=== PATIENT | male | born 1970 | race Two or more races ===

== ENCOUNTER 2017-12-04 20:12 | Inpatient (IN) | payer MEDICAID ==
[2017-12-04] MEDS ORDERED: Sodium Chloride 0.9% 1,000 ML IV ONE (20:43)
[2017-12-04] MEDS ORDERED: Pantoprazole 40 MG Vial IVPUSH ONE (20:43)
[2017-12-04] MEDS ORDERED: Sodium Chloride 0.9% 2.5 ML Syringe FLUSH PRN (20:43)
[2017-12-04] MEDS ORDERED: Ondansetron 4 MG/2 ML SDV IVPUSH ONE (20:43)
[2017-12-04] MEDS ORDERED: Sodium Chloride 0.9% 10 ML Syringe FLUSH PRN (20:43)
[2017-12-04] MEDS ORDERED: LORazepam 2 MG/ML SDV IVPUSH ONE (20:44)
[2017-12-04] MEDS ORDERED: Iopamidol 755 MG/ML 200 ML Multipack Bottle IVPUSH STA (20:50)
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
[2017-12-04 21:20] LABS: CHLORIDE,CL 97 mmol/L (98-110); SODIUM,NA 131 mmol/L (136-146)
[2017-12-04] MEDS ORDERED: Magnesium Sulfate/Water 2 GM in Premix Bag 1 BAG IV ONE (22:24)
[2017-12-04] MEDS ORDERED: MVI, Adult with Vitamin K 10 ML, Thiamine 100 MG, Folic Acid 1 MG in Sodium Chloride 0.... IV ONE ×4 (22:34)
[2017-12-04] MEDS ORDERED: oxyCODONE 5 MG Tab PO PRN (23:19)
[2017-12-04] MEDS ORDERED: Morphine 2 MG/ML Syringe IVPUSH PRN (23:19)
[2017-12-04] MEDS ORDERED: Furosemide 40 MG/4 ML VIAL IVPUSH ONE (23:19)
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
[2017-12-04] MEDS: Heparin Sodium 5,000 Units/ML Vial SUBCUT SCH (23:58)
[2017-12-05] MEDS: LORazepam 2 MG/ML SDV IVPUSH PRN ×2 (01:54→11:25)
[2017-12-05] MEDS: Ondansetron 4 MG/2 ML SDV IVPUSH PRN (01:59)
[2017-12-05 06:05] LABS: CHLORIDE,CL 103 mmol/L (98-110); SODIUM,NA 139 mmol/L (136-146)
[2017-12-05] MEDS: Pantoprazole 40 MG Vial IV SCH ×2 (08:04→21:38)
[2017-12-05] MEDS: Citalopram 20 MG Tab PO SCH (08:04)
[2017-12-05] MEDS: Folic Acid 1 MG Tab PO SCH (08:04)
[2017-12-05] MEDS ORDERED: Magnesium Sulfate/Water 4 GM in Premix Bag 1 BAG IV ONE (11:14)
[2017-12-05] MEDS ORDERED: Furosemide 40 MG/4 ML VIAL IVPUSH ONE (11:27)
[2017-12-05] MEDS: Heparin Sodium 5,000 Units/ML Vial SUBCUT SCH ×2 (11:34→22:42)
--- NOTE | 2017-12-05 12:18 | PCM.PN ---
- General Info Date of Service: 12/05/17 Subjective Update: patient doing better than upon admission. His breathing has gotten better secondary to the IV Lasix dosage which did reduce some of his anasarca fluid allowing him to breathe better. He still is having general anasarca. Patient no longer is having any nausea or vomiting. He is however appeared to be quite anxious with anxiety, headaches, tremor complaints. Likely this is the beginning of his alcoholic detox as his blood alcohol level should be coming down by now. Patient states that he did not sleep well due to his anxiety. His last CIWA score was a 9. Functional Status: Reports: Pain Controlled - Review of Systems General: Reports: Weakness, Chills HEENT: Reports: No Symptoms Pulmonary: Reports: Shortness of Breath Cardiovascular: Reports: No Symptoms Neurological: Reports: Headache Psychiatric: Reports: Anxiety, Agitation - Patient Data Vitals - Most Recent: Last Vital Signs Temp 36.5 C 12/05/17 07:00 Pulse 123 H 12/05/17 07:00 Resp 20 12/05/17 07:00 BP 138/101 H 12/05/17 07:00 Pulse Ox 95 12/05/17 07:00 Weight - Most Recent: 109.4 kg I&O - Last 24 Hours: Intake & Output 12/04/17 12/05/17 12/05/17 22:59 06:59 14:59 Intake Total 1150 Output Total 1950 Balance -800 Lab Results Last 24 Hours: Laboratory Results - last 24 hr 12/05/17 12/05/17 Range/Units 05:25 05:25 WBC 7.86 (4.0-11.0) K/uL RBC 3.71 L (4.50-5.90) M/uL Hgb 11.3 L (13.0-17.0) g/dL Hct 34.4 L (38.0-50.0) % MCV 92.7 (80.0-98.0) fL MCH 30.5 (27.0-32.0) pg MCHC 32.8 (31.0-37.0) g/dL RDW Std Deviation 53.5 (28.0-62.0) fl RDW Coeff of Pancho 16 H (11.0-15.0) % Plt Count 347 (150-400) K/uL MPV 8.60 (7.40-12.00) fL Neut % (Auto) 77.7 (48.0-80.0) % Lymph % (Auto) 13.9 L (16.0-40.0) % Sibley % (Auto) 7.8 (0.0-15.0) % Eos % (Auto) 0.3 (0.0-7.0) % Baso % (Auto) 0.3 (0.0-1.5) % Neut # (Auto) 6.1 H (1.4-5.7) K/uL Lymph # (Auto) 1.1 (0.6-2.4) K/uL Sibley # (Auto) 0.6 (0.0-0.8) K/uL Eos # (Auto) 0.0 (0.0-0.7) K/uL Baso # (Auto) 0.0 (0.0-0.1) K/uL Nucleated RBC % 0.0 /100WBC Nucleated RBCs # 0 K/uL Sodium 139 (136-146) mmol/L Potassium 4.4 (3.5-5.1) mmol/L Chloride 103 (98-110) mmol/L Carbon Dioxide 27 (21-31) mmol/L BUN 3 L (6.0-23.0) mg/dL Creatinine 0.8 (0.6-1.5) mg/dL Est Cr Clr Drug Dosing 116.61 mL/min Estimated GFR (MDRD) > 60.0 ml/min Glucose 106 (60-110) mg/dL Calcium 7.7 L (8.8-10.8) mg/dL Phosphorus 4.3 (2.4-4.7) mg/dL Magnesium 1.3 L (1.5-2.3) mEq/L Total Bilirubin 2.5 H (0.1-1.5) mg/dL AST 205 H (5-40) IU/L ALT 66 H (8-54) IU/L Alkaline Phosphatase 189 H (40-150) Total Protein 6.8 (6.0-8.0) g/dL Albumin 2.8 L (3.5-5.0) g/dL Globulin 4.0 H (2.0-3.5) g/dL Albumin/Globulin Ratio 0.7 L (1.3-2.8) Med Orders - Current: Current Medications Citalopram Hydrobromide (Celexa) 20 mg PO DAILY [facility] Last Admin: 12/05/17 08:04 Dose: 20 mg Folic Acid (Folic Acid) 1 mg PO DAILY [facility] Last Admin: 12/05/17 08:04 Dose: 1 mg Heparin Sodium (Porcine) (Heparin Sodium) 5,000 units SUBCUT Q12H [facility] Last Admin: 12/05/17 11:34 Dose: 5,000 units Magnesium Sulfate 4 gm/ Premix 100 mls @ 25 mls/hr IV ONETIME ONE Stop: 12/05/17 15:13 Last Admin: 12/05/17 11:28 Dose: 25 mls/hr Lorazepam (Ativan) 1 mg IVPUSH Q4H PRN PRN Reason: Anxiety Last Admin: 12/05/17 11:25 Dose: 1 mg Lorazepam (Ativan) 0 mg IV ASDIRECTED PRANAY PRN Reason: Protocol Morphine Sulfate (Morphine) 2 mg IVPUSH Q2H PRN PRN Reason: Pain (severe 7-10) Stop: 12/05/17 23:24 Ondansetron HCl (Zofran Odt) 4 mg PO Q4H PRN PRN Reason: nausea, able to take PO Ondansetron HCl (Zofran) 4 mg IVPUSH Q4H PRN PRN Reason: Nausea Last Admin: 12/05/17 01:59 Dose: 4 mg Oxycodone HCl (Oxycodone) 5 mg PO Q4H PRN PRN Reason: Pain (moderate 4-6) Pantoprazole Sodium (Protonix Iv) 80 mg IV Q12HR [facility] Last Admin: 12/05/17 08:04 Dose: 80 mg Sodium Chloride (Saline Flush) 10 ml FLUSH ASDIRECTED PRN PRN Reason: Keep Vein Open Last Admin: 12/04/17 20:54 Dose: 10 ml Sodium Chloride (Saline Flush) 2.5 ml FLUSH ASDIRECTED PRN PRN Reason: Keep Vein Open Last Admin: 12/04/17 20:54 Dose: 2.5 ml Temazepam (Restoril) 15 mg PO BEDTIME PRN PRN Reason: Sleep Thiamine HCl (Vitamin B-1) 100 mg PO BEDTIME [facility] Discontinued Medications Furosemide (Lasix) 40 mg IVPUSH NOW ONE Stop: 12/04/17 23:20 Last Admin: 12/05/17 00:01 Dose: 40 mg Furosemide (Lasix) 40 mg IVPUSH NOW ONE Stop: 12/05/17 11:28 Last Admin: 12/05/17 11:42 Dose: 40 mg Sodium Chloride (Normal Saline) 1,000 mls @ 999 mls/hr IV STAT ONE Stop: 12/04/17 21:43 Last Admin: 12/04/17 20:53 Dose: 999 mls/hr Magnesium Sulfate 2 gm/ Premix 50 mls @ 50 mls/hr IV ONETIME ONE Stop: 12/04/17 23:23 Last Admin: 12/04/17 22:27 Dose: 50 mls/hr Multivitamins/Minerals 10 ml/Thiamine HCl 100 mg/ Folic Acid 1 mg/ Sodium Chloride 1,011.2 mls @ 150 mls/hr IV ONETIME ONE Stop: 12/05/17 05:18 Last Admin: 12/04/17 22:59 Dose: 150 mls/hr Iopamidol (Isovue Multipack-370 (76%)) 100 ml IVPUSH ONETIME STA Stop: 12/04/17 20:51 Last Admin: 12/04/17 20:51 Dose: 100 ml Lorazepam (Ativan) 1 mg IVPUSH ONETIME ONE Stop: 12/04/17 20:45 Last Admin: 12/04/17 20:53 Dose: 1 mg Ondansetron HCl (Zofran) 4 mg IVPUSH ONETIME ONE Stop: 12/04/17 20:44 Last Admin: 12/04/17 20:53 Dose: 4 mg Pantoprazole Sodium (Protonix Iv) 80 mg IVPUSH .BOLUS ONE Stop: 12/04/17 20:44 Last Admin: 12/04/17 20:53 Dose: 80 mg - Exam General: Alert, Oriented, Cooperative HEENT: Pupils Equal Neck: Supple Lungs: Clear to Auscultation, Normal Respiratory Effort Cardiovascular: Regular Rhythm, Tachycardia GI/Abdominal Exam: Soft, Hepatomegaly, Other (generalized anasarca) Extremities: Pedal Edema, Other (bilateral pedal edema up until below the knee.) Skin: Warm Neurological: No New Focal Deficit Psy/Mental Status: Alert, Anxious, Agitated - Problem List Review Problem List Initiated/Reviewed/Updated: Yes - My Orders Last 24 Hours: My Active Orders 12/05/17 11:14 Magnesium Sulfate/Water [Magnesium Sulfate 4 GM in Water 100 ML] 4 gm Premix Bag 1 bag IV ONETIME 12/05/17 11:23 Notify Provider [RC] PRN 12/05/17 11:30 LORazepam [Ativan] See Protocol IV ASDIRECTED - Plan Plan:: 47-year-old male admitted anasarca and intractable nausea and vomiting with past medical history of alcohol dependence with acute intoxication and hypertension. #1. Anasarcalikely be generalized fluid that is around the abdomen and body is secondary to the patient's liver dysfunction due to alcohol use disorder. Patient has improved mildly from the standpoint of his anasarca and breathing difficulty secondary to the anasarca due to the one-time dose of IV Lasix. patient is going to require another dose of IV Lasix today of 40 mg. I shall also get in touch with radiology to assess his need for a possible paracentesis. At this point in time the patient is not going to require a GI consultation. #2. patient is exhibiting anxiety, agitation, headaches, asterixis//tremors all likely secondary to alcohol withdrawal. [place] protocol is in place, patient is also on a Ativan protocol with Ativan 1 mg every 4 hours when necessary for anxiety, as well as additional Ativan onboard via Ativan protocol for withdrawal symptoms based upon CIWA scores. #3. Nausea/vomiting stable and controlled with Zofran on board when necessary #4. Shortness of breath/pleural effusion: patient received 1 dose of Lasix yesterday, will receive another dose of Lasix today and a assessment from radiology for possible paracentesis to help with the shortness of breath which has started to improve since his last Lasix dose. #5. Hypomagnesemia- patient has a low magnesium level and will require 4 mg of IV magnesium and recheck to ensure magnesium levels have stabilized. #6. Patient has elevated LFT levels, a normal INR level, and a mildly elevated bilirubin level of 2.5. Patient at this point in time is not at a risk for acute liver failure however he continues to drink and cause damage to his liver she may go into end stage liver disease secondary to alcohol consumption. #7. Mentioned on CT that there was some fat stranding around the C-loop of the duodenum possibly representing duodenitis or related to peptic ulcer disease. Patient is currently afebrile and does not mention any fever or chills. He has no leukocytosis will watch closely hold off on antibiotics at this time. VTE proph: SCD, Heparin Dispo: 1-2 days pending improvement of his anasarca as well as alcohol withdrawal. Patient will likely need a follow-up with her primary care provider while he is here in [place]. Patient states that he will be here for about one month.
--- NOTE | 2017-12-05 13:41 | US ---
EXAMINATION: Right upper quadrant ultrasound HISTORY: Pain COMPARISON: CT dated 12/04/2017 TECHNIQUE: Grayscale and color Doppler images obtained of the right upper quadrant. FINDINGS: The visualized pancreas is normal. The liver is mildly increased in generalized echotexture without a focal hepatic mass. Cholecystectomy. Common bile duct measures 6 mm. The right kidney andrew ures 11.8 cm [id number] without evidence of hydronephrosis. Trace perihepatic fluid. IMPRESSION: 1. Trace perihepatic fluid. 2. Mild fatty infiltration of the liver.
--- NOTE | 2017-12-05 15:08 | CR ---
EXAM DATE: 12/04/17 PATIENT'S AGE: 47 Patient: MONICA ALDRICH Facility: [place], [place] Site . Site : 1970 Study: XRay Chest [id number]/11/2018 9:19:01 PM Ordering Physician: Shantanu Siddiqui Final Report: HISTORY: Chest pain, shortness of breath. TECHNIQUE: One view of the chest. COMPARISON: No prior. FINDINGS: Cardiac size is prominent but exaggerated by the technique. There is no focal lung infiltrate or pulmonary edema. No pneumothorax. No moderate or large pleural effusion. IMPRESSION: 1. No focal lung infiltrate or pulmonary edema. 2. Cardiac size is prominent but exaggerated by technique. Dictated by Ramon Ellison MD @ 12/04/2017 9:29:32 PM Dictated by: Ramon Ellison MD @ 12/04/2017 21:29:38 (Electronic Signature) Report Signed by Proxy. MTDTc
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
[2017-12-05] MEDS: LORazepam 2 MG/ML SDV IV SCH (18:54)
[2017-12-05] MEDS: Thiamine 100 MG Tab PO SCH (21:38)
[2017-12-06] MEDS: LORazepam 2 MG/ML SDV IVPUSH PRN (00:21)
[2017-12-06] MEDS: LORazepam 2 MG/ML SDV IV SCH (03:44)
[2017-12-06 05:40] LABS: CHLORIDE,CL 98 mmol/L (98-110); SODIUM,NA 135 mmol/L (136-146)
[2017-12-06] MEDS: Pantoprazole 40 MG Vial IV SCH ×2 (08:05→20:38)
[2017-12-06] MEDS: Citalopram 20 MG Tab PO SCH (08:18)
[2017-12-06] MEDS: Folic Acid 1 MG Tab PO SCH (08:18)
[2017-12-06] MEDS: Heparin Sodium 5,000 Units/ML Vial SUBCUT SCH ×2 (11:04→23:53)
[2017-12-06] MEDS ORDERED: Furosemide 40 MG/4 ML VIAL IVPUSH ONE (13:59)
--- NOTE | 2017-12-06 14:16 | PCM.PN ---
- General Info Date of Service: 12/06/17 Subjective Update: Patient is improving from the standpoint of his circumflex. Patient has been receiving IV Lasix 40 mg which has helped in terms of reduction of his fluid and improvement of his breathing. Patient is starting to detox more heavily now with ciwa scores ranging up to 16. The likelihood is that his withdrawals we'll get worse by tomorrow. Patient was receiving a echocardiogram 1000 the room assessing him. She is denying any nausea or vomiting or any other discomfort at the moment. Functional Status: Reports: Pain Controlled, Tolerating Diet - Review of Systems General: Reports: Fatigue HEENT: Reports: No Symptoms Pulmonary: Reports: No Symptoms, Shortness of Breath Cardiovascular: Reports: No Symptoms Psychiatric: Reports: Anxiety - Patient Data Vitals - Most Recent: Last Vital Signs Temp 36.4 C 12/06/17 12:00 Pulse 117 H 12/06/17 12:00 Resp 20 12/06/17 12:00 BP 125/91 H 12/06/17 12:00 Pulse Ox 95 12/06/17 12:00 Weight - Most Recent: 107.4 kg Med Orders - Current: Current Medications Citalopram Hydrobromide (Celexa) 20 mg PO DAILY [facility] Last Admin: 12/06/17 08:18 Dose: 20 mg Folic Acid (Folic Acid) 1 mg PO DAILY [facility] Last Admin: 12/06/17 08:18 Dose: 1 mg Heparin Sodium (Porcine) (Heparin Sodium) 5,000 units SUBCUT Q12H [facility] Last Admin: 12/06/17 11:04 Dose: 5,000 units Lorazepam (Ativan) 1 mg IVPUSH Q4H PRN PRN Reason: Anxiety Last Admin: 12/06/17 00:21 Dose: 1 mg Lorazepam (Ativan) 0 mg IV ASDIRECTED [facility] PRN Reason: Protocol Last Admin: 12/06/17 03:44 Dose: 1 mg Ondansetron HCl (Zofran Odt) 4 mg PO Q4H PRN PRN Reason: nausea, able to take PO Ondansetron HCl (Zofran) 4 mg IVPUSH Q4H PRN PRN Reason: Nausea Last Admin: 12/05/17 01:59 Dose: 4 mg Oxycodone HCl (Oxycodone) 5 mg PO Q4H PRN PRN Reason: Pain (moderate 4-6) Pantoprazole Sodium (Protonix Iv) 80 mg IV Q12HR [facility] Last Admin: 12/06/17 08:05 Dose: 80 mg Sodium Chloride (Saline Flush) 10 ml FLUSH ASDIRECTED PRN PRN Reason: Keep Vein Open Last Admin: 12/04/17 20:54 Dose: 10 ml Sodium Chloride (Saline Flush) 2.5 ml FLUSH ASDIRECTED PRN PRN Reason: Keep Vein Open Last Admin: 12/04/17 20:54 Dose: 2.5 ml Temazepam (Restoril) 15 mg PO BEDTIME PRN PRN Reason: Sleep Thiamine HCl (Vitamin B-1) 100 mg PO BEDTIME [facility] Last Admin: 12/05/17 21:38 Dose: 100 mg Discontinued Medications Furosemide (Lasix) 40 mg IVPUSH NOW ONE Stop: 12/04/17 23:20 Last Admin: 12/05/17 00:01 Dose: 40 mg Furosemide (Lasix) 40 mg IVPUSH NOW ONE Stop: 12/05/17 11:28 Last Admin: 12/05/17 11:42 Dose: 40 mg Furosemide (Lasix) 40 mg IVPUSH DAILY ONE Stop: 12/06/17 14:00 Sodium Chloride (Normal Saline) 1,000 mls @ 999 mls/hr IV STAT ONE Stop: 12/04/17 21:43 Last Admin: 12/04/17 20:53 Dose: 999 mls/hr Magnesium Sulfate 2 gm/ Premix 50 mls @ 50 mls/hr IV ONETIME ONE Stop: 12/04/17 23:23 Last Admin: 12/04/17 22:27 Dose: 50 mls/hr Multivitamins/Minerals 10 ml/Thiamine HCl 100 mg/ Folic Acid 1 mg/ Sodium Chloride 1,011.2 mls @ 150 mls/hr IV ONETIME ONE Stop: 12/05/17 05:18 Last Admin: 12/04/17 22:59 Dose: 150 mls/hr Magnesium Sulfate 4 gm/ Premix 100 mls @ 25 mls/hr IV ONETIME ONE Stop: 12/05/17 15:13 Last Admin: 12/05/17 11:28 Dose: 25 mls/hr Iopamidol (Isovue Multipack-370 (76%)) 100 ml IVPUSH ONETIME STA Stop: 12/04/17 20:51 Last Admin: 12/04/17 20:51 Dose: 100 ml Lorazepam (Ativan) 1 mg IVPUSH ONETIME ONE Stop: 12/04/17 20:45 Last Admin: 12/04/17 20:53 Dose: 1 mg Morphine Sulfate (Morphine) 2 mg IVPUSH Q2H PRN PRN Reason: Pain (severe 7-10) Stop: 12/05/17 23:24 Ondansetron HCl (Zofran) 4 mg IVPUSH ONETIME ONE Stop: 12/04/17 20:44 Last Admin: 12/04/17 20:53 Dose: 4 mg Pantoprazole Sodium (Protonix Iv) 80 mg IVPUSH .BOLUS ONE Stop: 12/04/17 20:44 Last Admin: 12/04/17 20:53 Dose: 80 mg - Exam General: Alert, Oriented, Cooperative, No Acute Distress HEENT: Pupils Equal, Pupils Reactive Neck: Supple Lungs: Clear to Auscultation, Normal Respiratory Effort Cardiovascular: Regular Rate, Regular Rhythm Extremities: Pedal Edema (Very mild) - Problem List Review Problem List Initiated/Reviewed/Updated: Yes - My Orders Last 24 Hours: My Active Orders 12/06/17 Dinner Regular Diet [DIET] - Plan Plan:: 47-year-old male admitted anasarca and intractable nausea and vomiting with past medical history of alcohol dependence with acute intoxication and hypertension. #1. Anasarcalikely be generalized fluid that is around the abdomen and body is secondary to the patient's liver dysfunction due to alcohol use disorder. Patient has improved mildly from the standpoint of his anasarca and breathing difficulty secondary to the anasarca. Patient is not going to require paracentesis at this point in time. Patient will simply be managed via IV Lasix. #2. patient is exhibiting anxiety, agitation, headaches, asterixis//tremors all likely secondary to alcohol withdrawal. [place] protocol is in place, patient is also on a Ativan protocol with Ativan 1 mg every 4 hours when necessary for anxiety, as well as additional Ativan onboard via Ativan protocol for withdrawal symptoms based upon CIWA scores. #3. Nausea/vomiting stable and controlled with Zofran on board when necessary #4. Shortness of breath/pleural effusion: Significantly improved secondary to Lasix dose. Shall continue to monitor and dose Lasix as needed. #5. Hypomagnesemia- magnesium level has normalized continue to follow the magnesium. #6. Patient has elevated LFT levels, a normal INR level, and a mildly elevated bilirubin level of 2.5. Patient at this point in time is not at a risk for acute liver failure however he continues to drink and cause damage to his liver she may go into end stage liver disease secondary to alcohol consumption. #7. Mentioned on CT that there was some fat stranding around the C-loop of the duodenum possibly representing duodenitis or related to peptic ulcer disease. Patient is currently afebrile and does not mention any fever or chills. He has no leukocytosis will watch closely hold off on antibiotics at this time. #8. Patient had an echocardiogram to ensure no cardiac etiologies that can be present secondary to anasarca. VTE proph: SCD, Heparin Dispo: 1-2 days pending improvement of his anasarca as well as alcohol withdrawal. Patient will likely need a follow-up with her primary care provider while he is here in [place]. Patient states that he will be here for about one month.
[2017-12-06] MEDS: Ondansetron 4 MG Tab.DIS PO PRN ×2 (14:20→20:29)
[2017-12-06] MEDS ORDERED: Calcium Carbonate 500 MG Tab.Chew PO ONE (18:34)
[2017-12-06] MEDS: Thiamine 100 MG Tab PO SCH (20:47)
[2017-12-06] MEDS: Temazepam 15 MG Cap PO PRN (20:47)
[2017-12-07 05:40] LABS: CHLORIDE,CL 97 mmol/L (98-110); SODIUM,NA 132 mmol/L (136-146)
[2017-12-07] MEDS ORDERED: Magnesium Sulfate/Water 4 GM in Premix Bag 1 BAG IV ONE (08:34)
[2017-12-07] MEDS: Pantoprazole 40 MG Vial IV SCH ×2 (08:49→20:11)
[2017-12-07] MEDS: Ondansetron 4 MG/2 ML SDV IVPUSH PRN (08:49)
[2017-12-07] MEDS: Calcium Carbonate 500 MG Tab.Chew PO SCH (08:50)
[2017-12-07] MEDS: Citalopram 20 MG Tab PO SCH (08:50)
[2017-12-07] MEDS: Folic Acid 1 MG Tab PO SCH (08:50)
[2017-12-07] MEDS ORDERED: Furosemide 40 MG/4 ML VIAL IVPUSH ONE (10:36)
[2017-12-07] MEDS: Heparin Sodium 5,000 Units/ML Vial SUBCUT SCH ×2 (11:08→23:52)
[2017-12-07] MEDS ORDERED: LORazepam Conc Solution 2 MG/ML 30 ML Bottle PO PRN (12:35)
[2017-12-07] MEDS ORDERED: LORazepam 0.5 MG Tab PO PRN (12:50)
--- NOTE | 2017-12-07 18:11 | PCM.PN ---
- General Info Date of Service: 12/07/17 Subjective Update: Patient is still continue to detox with serial scores ranging between 6-9. Patient does state that he is breathing better, and feels that there is less fluid in his belly. Patient's echocardiogram showed severe ejection fraction reduction as well as major regurgitation tricuspid regurgitation monks other issues. This is also contributing to the patient's anasarca. Patient denies any fevers, patient does complain of chills and tremors and anxiety all of which are likely attributed to his withdrawal symptoms secondary to alcohol detox. - Review of Systems General: Reports: Weakness, Chills Psychiatric: Reports: Anxiety, Agitation - Patient Data Vitals - Most Recent: Last Vital Signs Temp 36.2 C 12/07/17 16:00 Pulse 98 12/07/17 16:00 Resp 18 12/07/17 16:00 BP 110/70 12/07/17 16:00 Pulse Ox 97 12/07/17 16:00 Weight - Most Recent: 110.9 kg I&O - Last 24 Hours: Intake & Output 12/07/17 12/07/17 12/07/17 06:59 14:59 22:59 Intake Total 2543 518 9765 Output Total 750 1800 Balance 450 100 -800 Lab Results Last 24 Hours: Laboratory Results - last 24 hr 12/07/17 12/07/17 12/07/17 Range/Units 04:54 04:54 04:54 WBC 9.33 (4.0-11.0) K/uL RBC 3.76 L (4.50-5.90) M/uL Hgb 11.6 L (13.0-17.0) g/dL Hct 35.0 L (38.0-50.0) % MCV 93.1 (80.0-98.0) fL MCH 30.9 (27.0-32.0) pg MCHC 33.1 (31.0-37.0) g/dL RDW Std Deviation 54.5 (28.0-62.0) fl RDW Coeff of Pancho 16 H (11.0-15.0) % Plt Count 323 (150-400) K/uL MPV 8.80 (7.40-12.00) fL Neut % (Auto) 78.2 (48.0-80.0) % Lymph % (Auto) 13.8 L (16.0-40.0) % [place] % (Auto) 7.5 (0.0-15.0) % Eos % (Auto) 0.3 (0.0-7.0) % Baso % (Auto) 0.2 (0.0-1.5) % Neut # (Auto) 7.3 H (1.4-5.7) K/uL Lymph # (Auto) 1.3 (0.6-2.4) K/uL [place] # (Auto) 0.7 (0.0-0.8) K/uL Eos # (Auto) 0.0 (0.0-0.7) K/uL Baso # (Auto) 0.0 (0.0-0.1) K/uL Nucleated RBC % 0.0 /100WBC Nucleated RBCs # 0 K/uL Sodium 132 L (136-146) mmol/L Potassium 3.7 (3.5-5.1) mmol/L Chloride 97 L (98-110) mmol/L Carbon Dioxide 24 (21-31) mmol/L BUN 11 (6.0-23.0) mg/dL Creatinine 0.8 (0.6-1.5) mg/dL Est Cr Clr Drug Dosing 116.61 mL/min Estimated GFR (MDRD) > 60.0 ml/min Glucose 100 (60-110) mg/dL Calcium 7.6 L (8.8-10.8) mg/dL Phosphorus 3.4 (2.4-4.7) mg/dL Magnesium 1.4 L (1.5-2.3) mEq/L Total Bilirubin 3.0 H (0.1-1.5) mg/dL AST 106 H (5-40) IU/L ALT 47 (8-54) IU/L Alkaline Phosphatase 216 H (40-150) Total Protein 6.7 (6.0-8.0) g/dL Albumin 2.8 L (3.5-5.0) g/dL Globulin 3.9 H (2.0-3.5) g/dL Albumin/Globulin Ratio 0.7 L (1.3-2.8) Med Orders - Current: Current Medications Calcium Carbonate/Glycine (Tums) 1,000 mg PO DAILY [facility] Last Admin: 12/07/17 08:50 Dose: 1,000 mg Citalopram Hydrobromide (Celexa) 20 mg PO DAILY [facility] Last Admin: 12/07/17 08:50 Dose: 20 mg Folic Acid (Folic Acid) 1 mg PO DAILY [facility] Last Admin: 12/07/17 08:50 Dose: 1 mg Heparin Sodium (Porcine) (Heparin Sodium) 5,000 units SUBCUT Q12H [facility] Last Admin: 12/07/17 11:08 Dose: 5,000 units Lorazepam (Ativan) 1 mg IVPUSH Q4H PRN PRN Reason: Anxiety Last Admin: 12/06/17 00:21 Dose: 1 mg Lorazepam (Ativan) 0 mg IV ASDIRECTED [facility] PRN Reason: Protocol Last Admin: 12/06/17 03:44 Dose: 1 mg Lorazepam (Ativan) 0 mg PO ASDIRECTED PRN; Protocol PRN Reason: Anxiety Last Admin: 12/07/17 13:07 Dose: 1 mg Ondansetron HCl (Zofran Odt) 4 mg PO Q4H PRN PRN Reason: nausea, able to take PO Last Admin: 12/06/17 20:29 Dose: 4 mg Ondansetron HCl (Zofran) 4 mg IVPUSH Q4H PRN PRN Reason: Nausea Last Admin: 12/07/17 08:49 Dose: 4 mg Oxycodone HCl (Oxycodone) 5 mg PO Q4H PRN PRN Reason: Pain (moderate 4-6) Pantoprazole Sodium (Protonix Iv) 80 mg IV Q12HR [facility] Last Admin: 12/07/17 08:49 Dose: 80 mg Sodium Chloride (Saline Flush) 10 ml FLUSH ASDIRECTED PRN PRN Reason: Keep Vein Open Last Admin: 12/04/17 20:54 Dose: 10 ml Sodium Chloride (Saline Flush) 2.5 ml FLUSH ASDIRECTED PRN PRN Reason: Keep Vein Open Last Admin: 12/04/17 20:54 Dose: 2.5 ml Temazepam (Restoril) 15 mg PO BEDTIME PRN PRN Reason: Sleep Last Admin: 12/06/17 20:47 Dose: 15 mg Thiamine HCl (Vitamin B-1) 100 mg PO BEDTIME [facility] Last Admin: 12/06/17 20:47 Dose: 100 mg Discontinued Medications Calcium Carbonate/Glycine (Tums) 1,000 mg PO ONETIME ONE Stop: 12/06/17 18:35 Last Admin: 12/06/17 18:42 Dose: 1,000 mg Furosemide (Lasix) 40 mg IVPUSH NOW ONE Stop: 12/04/17 23:20 Last Admin: 12/05/17 00:01 Dose: 40 mg Furosemide (Lasix) 40 mg IVPUSH NOW ONE Stop: 12/05/17 11:28 Last Admin: 12/05/17 11:42 Dose: 40 mg Furosemide (Lasix) 40 mg IVPUSH DAILY ONE Stop: 12/06/17 14:00 Last Admin: 12/06/17 14:22 Dose: 40 mg Furosemide (Lasix) 40 mg IVPUSH NOW ONE Stop: 12/07/17 10:37 Last Admin: 12/07/17 11:09 Dose: 40 mg Sodium Chloride (Normal Saline) 1,000 mls @ 999 mls/hr IV STAT ONE Stop: 12/04/17 21:43 Last Admin: 12/04/17 20:53 Dose: 999 mls/hr Magnesium Sulfate 2 gm/ Premix 50 mls @ 50 mls/hr IV ONETIME ONE Stop: 12/04/17 23:23 Last Admin: 12/04/17 22:27 Dose: 50 mls/hr Multivitamins/Minerals 10 ml/Thiamine HCl 100 mg/ Folic Acid 1 mg/ Sodium Chloride 1,011.2 mls @ 150 mls/hr IV ONETIME ONE Stop: 12/05/17 05:18 Last Admin: 12/04/17 22:59 Dose: 150 mls/hr Magnesium Sulfate 4 gm/ Premix 100 mls @ 25 mls/hr IV ONETIME ONE Stop: 12/05/17 15:13 Last Admin: 12/05/17 11:28 Dose: 25 mls/hr Magnesium Sulfate 4 gm/ Premix 100 mls @ 25 mls/hr IV ONETIME ONE Stop: 12/07/17 12:33 Last Admin: 12/07/17 09:01 Dose: 25 mls/hr Iopamidol (Isovue Multipack-370 (76%)) 100 ml IVPUSH ONETIME STA Stop: 12/04/17 20:51 Last Admin: 12/04/17 20:51 Dose: 100 ml Lorazepam (Ativan) 1 mg IVPUSH ONETIME ONE Stop: 12/04/17 20:45 Last Admin: 12/04/17 20:53 Dose: 1 mg Morphine Sulfate (Morphine) 2 mg IVPUSH Q2H PRN PRN Reason: Pain (severe 7-10) Stop: 12/05/17 23:24 Ondansetron HCl (Zofran) 4 mg IVPUSH ONETIME ONE Stop: 12/04/17 20:44 Last Admin: 12/04/17 20:53 Dose: 4 mg Pantoprazole Sodium (Protonix Iv) 80 mg IVPUSH .BOLUS ONE Stop: 12/04/17 20:44 Last Admin: 12/04/17 20:53 Dose: 80 mg - Exam General: Alert, Oriented, Cooperative, Mild Distress Lungs: Clear to Auscultation, Normal Respiratory Effort Cardiovascular: Regular Rhythm, Tachycardia GI/Abdominal Exam: Other (Distended abdomen secondary to anasarca) Extremities: No Pedal Edema - Problem List Review Problem List Initiated/Reviewed/Updated: Yes - My Orders Last 24 Hours: My Active Orders 12/07/17 09:00 Calcium Carbonate [Tums] 1,000 mg PO DAILY 12/07/17 12:50 LORazepam [Ativan] See Protocol PO ASDIRECTED PRN 12/08/17 05:00 CBC WITH AUTO DIFF [HEME] Routine CMP [COMPREHENSIVE METABOLIC PN,CMP] [CHEM] Routine MAGNESIUM [CHEM] Routine - Plan Plan:: 47-year-old male admitted anasarca and intractable nausea and vomiting with past medical history of alcohol dependence with acute intoxication and hypertension. #1. Anasarcapatient anasarca is likely a mix of his severe heart dysfunction as well as liver dysfunction due to alcohol abuse. Anasarca is improving with Lasix we shall continue with Lasix management at this point in time. We will also fluid restrict the patient. #2. patient is exhibiting anxiety, agitation, headaches, asterixis//tremors all likely secondary to alcohol withdrawal. 72 hours into the patient's detox, patients CIWA scores are ranging between 6-16. Ativan protocol for withdrawal. #3. Nausea/vomiting stable and controlled with Zofran on board when necessary #4. Shortness of breath/pleural effusion: Significantly improved secondary to Lasix dose. Shall continue to monitor and dose Lasix as needed. #5. Hypomagnesemia- magnesium levels weren't low again patient received 4 mg of IV magnesium. shall continue to follow the magnesium. #6. Patient has elevated LFT levels, a normal INR level, and a mildly elevated bilirubin level 3.0. Patient at this point in time is not at a risk for acute liver failure however he continues to drink and cause damage to his liver she may go into end stage liver disease secondary to alcohol consumption. #7. Patient had an echocardiogram so severe dysfunction. Shall discuss with the patient and decided how to move forward. VTE proph: SCD, Heparin
[2017-12-07] MEDS: Thiamine 100 MG Tab PO SCH (20:10)
[2017-12-07] MEDS: Temazepam 15 MG Cap PO PRN (23:52)
[2017-12-08 06:18] LABS: CHLORIDE,CL 98 mmol/L (98-110); SODIUM,NA 135 mmol/L (136-146)
[2017-12-08] MEDS: Citalopram 20 MG Tab PO SCH (09:35)
[2017-12-08] MEDS: Calcium Carbonate 500 MG Tab.Chew PO SCH (09:35)
[2017-12-08] MEDS: Folic Acid 1 MG Tab PO SCH (09:35)
[2017-12-08] MEDS: Pantoprazole 40 MG Vial IV SCH ×2 (09:37→20:39)
[2017-12-08] MEDS: Lisinopril 5 MG Tab PO SCH (10:43)
[2017-12-08] MEDS: Carvedilol 6.25 MG Tab PO SCH ×2 (10:43→20:38)
[2017-12-08] MEDS: Heparin Sodium 5,000 Units/ML Vial SUBCUT SCH (10:45)
--- NOTE | 2017-12-08 14:04 | PCM.PN ---
- General Info Date of Service: 12/08/17 Admission Dx/Problem (Free Text): Patient is doing well, his withdrawal symptoms are improving.His CIWA have been 0 and 1. He states that he has vomited gotten sleep better than the previous night says he was constantly awake due to the withdrawals. He is no longer fluid retaining the way he was initially. Patient has been on fluid restrictions. We also discussed the patient's echocardiogram for his cardiomyopathy. - Review of Systems General: Reports: Weakness, Fatigue HEENT: Reports: No Symptoms Pulmonary: Reports: No Symptoms Cardiovascular: Reports: No Symptoms Psychiatric: Reports: Anxiety - Patient Data Vitals - Most Recent: Last Vital Signs Temp 36.2 C 12/08/17 11:25 Pulse 110 H 12/08/17 11:25 Resp 20 12/08/17 11:25 BP 116/93 H 12/08/17 11:25 Pulse Ox 96 12/08/17 11:25 Weight - Most Recent: 107.864 kg I&O - Last 24 Hours: Intake & Output 12/07/17 12/08/17 12/08/17 22:59 06:59 14:59 Intake Total 1000 750 750 Output Total 1800 501 Balance -800 249 750 Lab Results Last 24 Hours: Laboratory Results - last 24 hr 12/08/17 12/08/17 Range/Units 05:13 05:13 WBC 9.35 (4.0-11.0) K/uL RBC 3.80 L (4.50-5.90) M/uL Hgb 11.7 L (13.0-17.0) g/dL Hct 35.6 L (38.0-50.0) % MCV 93.7 (80.0-98.0) fL MCH 30.8 (27.0-32.0) pg MCHC 32.9 (31.0-37.0) g/dL RDW Std Deviation 55.5 (28.0-62.0) fl RDW Coeff of Pancho 16 H (11.0-15.0) % Plt Count 312 (150-400) K/uL MPV 9.30 (7.40-12.00) fL Neut % (Auto) 78.1 (48.0-80.0) % Lymph % (Auto) 12.5 L (16.0-40.0) % [place] % (Auto) 8.6 (0.0-15.0) % Eos % (Auto) 0.6 (0.0-7.0) % Baso % (Auto) 0.2 (0.0-1.5) % Neut # (Auto) 7.3 H (1.4-5.7) K/uL Lymph # (Auto) 1.2 (0.6-2.4) K/uL [place] # (Auto) 0.8 (0.0-0.8) K/uL Eos # (Auto) 0.1 (0.0-0.7) K/uL Baso # (Auto) 0.0 (0.0-0.1) K/uL Nucleated RBC % 0.0 /100WBC Nucleated RBCs # 0 K/uL Sodium 135 L (136-146) mmol/L Potassium 4.0 (3.5-5.1) mmol/L Chloride 98 (98-110) mmol/L Carbon Dioxide 27 (21-31) mmol/L BUN 13 (6.0-23.0) mg/dL Creatinine 0.8 (0.6-1.5) mg/dL Est Cr Clr Drug Dosing 116.61 mL/min Estimated GFR (MDRD) > 60.0 ml/min Glucose 97 (60-110) mg/dL Calcium 7.7 L (8.8-10.8) mg/dL Magnesium 1.5 (1.5-2.3) mEq/L Total Bilirubin 3.0 H (0.1-1.5) mg/dL AST 84 H (5-40) IU/L ALT 39 (8-54) IU/L Alkaline Phosphatase 209 H (40-150) Total Protein 6.6 (6.0-8.0) g/dL Albumin 2.8 L (3.5-5.0) g/dL Globulin 3.8 H (2.0-3.5) g/dL Albumin/Globulin Ratio 0.7 L (1.3-2.8) Med Orders - Current: Current Medications Calcium Carbonate/Glycine (Tums) 1,000 mg PO DAILY [facility] Last Admin: 12/08/17 09:35 Dose: 1,000 mg Carvedilol (Coreg) 6.25 mg PO BID [facility] Last Admin: 12/08/17 10:43 Dose: 6.25 mg Citalopram Hydrobromide (Celexa) 20 mg PO DAILY [facility] Last Admin: 12/08/17 09:35 Dose: 20 mg Folic Acid (Folic Acid) 1 mg PO DAILY [facility] Last Admin: 12/08/17 09:35 Dose: 1 mg Heparin Sodium (Porcine) (Heparin Sodium) 5,000 units SUBCUT Q12H [facility] Last Admin: 12/08/17 10:45 Dose: 5,000 units Lisinopril (Prinivil) 5 mg PO DAILY [facility] Last Admin: 12/08/17 10:43 Dose: 5 mg Lorazepam (Ativan) 0 mg PO ASDIRECTED PRN; Protocol PRN Reason: Anxiety Last Admin: 12/07/17 13:07 Dose: 1 mg Ondansetron HCl (Zofran Odt) 4 mg PO Q4H PRN PRN Reason: nausea, able to take PO Last Admin: 12/06/17 20:29 Dose: 4 mg Ondansetron HCl (Zofran) 4 mg IVPUSH Q4H PRN PRN Reason: Nausea Last Admin: 12/07/17 08:49 Dose: 4 mg Oxycodone HCl (Oxycodone) 5 mg PO Q4H PRN PRN Reason: Pain (moderate 4-6) Pantoprazole Sodium (Protonix Iv) 80 mg IV Q12HR [facility] Last Admin: 12/08/17 09:37 Dose: 80 mg Sodium Chloride (Saline Flush) 10 ml FLUSH ASDIRECTED PRN PRN Reason: Keep Vein Open Last Admin: 12/04/17 20:54 Dose: 10 ml Sodium Chloride (Saline Flush) 2.5 ml FLUSH ASDIRECTED PRN PRN Reason: Keep Vein Open Last Admin: 12/04/17 20:54 Dose: 2.5 ml Temazepam (Restoril) 15 mg PO BEDTIME PRN PRN Reason: Sleep Last Admin: 12/07/17 23:52 Dose: 15 mg Thiamine HCl (Vitamin B-1) 100 mg PO BEDTIME [facility] Last Admin: 12/07/17 20:10 Dose: 100 mg Discontinued Medications Calcium Carbonate/Glycine (Tums) 1,000 mg PO ONETIME ONE Stop: 12/06/17 18:35 Last Admin: 12/06/17 18:42 Dose: 1,000 mg Furosemide (Lasix) 40 mg IVPUSH NOW ONE Stop: 12/04/17 23:20 Last Admin: 12/05/17 00:01 Dose: 40 mg Furosemide (Lasix) 40 mg IVPUSH NOW ONE Stop: 12/05/17 11:28 Last Admin: 12/05/17 11:42 Dose: 40 mg Furosemide (Lasix) 40 mg IVPUSH DAILY ONE Stop: 12/06/17 14:00 Last Admin: 12/06/17 14:22 Dose: 40 mg Furosemide (Lasix) 40 mg IVPUSH NOW ONE Stop: 12/07/17 10:37 Last Admin: 12/07/17 11:09 Dose: 40 mg Sodium Chloride (Normal Saline) 1,000 mls @ 999 mls/hr IV STAT ONE Stop: 12/04/17 21:43 Last Admin: 12/04/17 20:53 Dose: 999 mls/hr Magnesium Sulfate 2 gm/ Premix 50 mls @ 50 mls/hr IV ONETIME ONE Stop: 12/04/17 23:23 Last Admin: 12/04/17 22:27 Dose: 50 mls/hr Multivitamins/Minerals 10 ml/Thiamine HCl 100 mg/ Folic Acid 1 mg/ Sodium Chloride 1,011.2 mls @ 150 mls/hr IV ONETIME ONE Stop: 12/05/17 05:18 Last Admin: 12/04/17 22:59 Dose: 150 mls/hr Magnesium Sulfate 4 gm/ Premix 100 mls @ 25 mls/hr IV ONETIME ONE Stop: 12/05/17 15:13 Last Admin: 12/05/17 11:28 Dose: 25 mls/hr Magnesium Sulfate 4 gm/ Premix 100 mls @ 25 mls/hr IV ONETIME ONE Stop: 12/07/17 12:33 Last Admin: 12/07/17 09:01 Dose: 25 mls/hr Iopamidol (Isovue Multipack-370 (76%)) 100 ml IVPUSH ONETIME STA Stop: 12/04/17 20:51 Last Admin: 12/04/17 20:51 Dose: 100 ml Lorazepam (Ativan) 1 mg IVPUSH ONETIME ONE Stop: 12/04/17 20:45 Last Admin: 12/04/17 20:53 Dose: 1 mg Lorazepam (Ativan) 1 mg IVPUSH Q4H PRN PRN Reason: Anxiety Last Admin: 12/06/17 00:21 Dose: 1 mg Lorazepam (Ativan) 0 mg IV ASDIRECTED [facility] PRN Reason: Protocol Last Admin: 12/06/17 03:44 Dose: 1 mg Morphine Sulfate (Morphine) 2 mg IVPUSH Q2H PRN PRN Reason: Pain (severe 7-10) Stop: 12/05/17 23:24 Ondansetron HCl (Zofran) 4 mg IVPUSH ONETIME ONE Stop: 12/04/17 20:44 Last Admin: 12/04/17 20:53 Dose: 4 mg Pantoprazole Sodium (Protonix Iv) 80 mg IVPUSH .BOLUS ONE Stop: 12/04/17 20:44 Last Admin: 12/04/17 20:53 Dose: 80 mg - Exam General: Alert, Oriented, Cooperative HEENT: Pupils Equal Lungs: Clear to Auscultation, Normal Respiratory Effort Cardiovascular: Regular Rhythm, Tachycardia GI/Abdominal Exam: Normal Bowel Sounds Extremities: Normal Inspection, Normal Range of Motion - Problem List Review Problem List Initiated/Reviewed/Updated: Yes - Plan Plan:: 47-year-old male admitted anasarca and intractable nausea and vomiting with past medical history of alcohol dependence with acute intoxication and hypertension. #1. Anasarcapatient anasarca is likely a mix of his severe heart dysfunction as well as liver dysfunction due to alcohol abuse. Continue with fluid restrictions. #2. Patient's withdrawal symptoms have improved significantly. CIWA scores of 0- 1. #3. Nausea/vomiting stable and controlled with Zofran on board when necessary #4. Shortness of breath/pleural effusion: Significantly improved secondary to Lasix dose. Shall continue to monitor and dose Lasix as needed. #5. Hypomagnesemia- resolved #6. Patient has elevated LFT levels, a normal INR level, and a mildly elevated bilirubin level 3.0. Patient at this point in time is not at a risk for acute liver failure however he continues to drink and cause damage to his liver she may go into end stage liver disease secondary to alcohol consumption. #7. Patient had an echocardiogram so severe dysfunction. Patient has dilated cardiomyopathy with reduced ejection fraction 15-20%. I shall be starting carvedilol 6.25 mg twice a day along with lisinopril 5 mg daily to help with his poor ejection fraction VTE proph: SCD, Heparin
--- NOTE | 2017-12-08 14:11 | ECHO ---
EXAM DATE: 12/06/17 PATIENT'S AGE: 47 The echocardiogram report can be seen in this patient's EMR (Electronic Medical Record) in the Reports section. The report has also been scanned into PACs. MARITA
[2017-12-08] MEDS: Ondansetron 4 MG/2 ML SDV IVPUSH PRN ×2 (14:42→21:00)
[2017-12-08] MEDS: Thiamine 100 MG Tab PO SCH (20:38)
[2017-12-09] MEDS: Heparin Sodium 5,000 Units/ML Vial SUBCUT SCH ×2 (00:14→12:10)
[2017-12-09] MEDS: Temazepam 15 MG Cap PO PRN (00:15)
[2017-12-09] MEDS ORDERED: Promethazine 25 MG/ML SDV IM PRN (02:27)
[2017-12-09] MEDS: Ondansetron 4 MG/2 ML SDV IVPUSH PRN (02:44)
[2017-12-09] MEDS: Pantoprazole 40 MG Vial IV SCH (09:23)
[2017-12-09] MEDS: Folic Acid 1 MG Tab PO SCH (09:24)
[2017-12-09] MEDS: Carvedilol 6.25 MG Tab PO SCH (09:24)
[2017-12-09] MEDS: Lisinopril 5 MG Tab PO SCH (09:24)
[2017-12-09] MEDS: Citalopram 20 MG Tab PO SCH (09:24)
[2017-12-09] MEDS: Calcium Carbonate 500 MG Tab.Chew PO SCH (09:25)
[2017-12-09] MEDS: Ondansetron 4 MG Tab.DIS PO PRN (12:09)
--- NOTE | 2017-12-16 00:15 | PCM.DCSUM1 ---
<Jacques Villanueva Z - Last Filed: 12/16/17 00:03> Discharge Summary - Hospital Course Free Text/Narrative:: Discharge Summary Date of admission: 12/04/2017 Date of discharge: 12/09/2017 Admitting diagnosis: #1. Alcohol dependence #2. Hypertension #3. Elevated LFTs #4. Anasarca #5. Pleural effusion Discharge diagnoses: #1. Anasarca resolving #2. Alcohol withdrawal symptoms resolved #3. Cardiomegaly #4. elevated LFTs secondary to alcohol dependence/abuse #5. Consultations: None Procedures: None Hospitalization course: Patient was admitted initially for alcohol dependence anasarca throughout the entire body elevated LFTs and a pleural effusion. Patient was treated with Lasix IV 40 mg to help reduce the anasarca imaging study was done to assess the extent of the anasarca to see if paracentesis would be appropriate. Patient was having breathing difficulties initially during the admission secondary to his anasarca. Patient was Lasix dose throughout not requiring paracentesis as this helped reduce his fluid retention that he was experiencing secondary to his liver damage due to alcohol intoxication, an echocardiogram was obtained which showed significant cardiomegaly which also likely was contributing to the patient's anasarca. Throughout his stay also started to develop pretty severe alcohol withdrawal with CIWA scores ranging as high as 16-18. Patient was controlled via lorazepam for his acute alcohol withdrawal symptoms. Towards the end of his stay on 2017 his alcohol intoxication/withdrawal symptoms had resolved. His LFTs had stabilized. Patient was put on Coreg and lisinopril for his cardiomegaly. Disposition on discharge: home Condition on discharge: Stable Discharge medications: Coreg, lisinopril, folic acid, thiamine, Haylee home medication Follow-up instructions: Follow-up with PCP and cardiology outpatient - Discharge Data Discharge Date: 12/09/17 Discharge Disposition: Home, Self-Care 01 Condition: Fair - Patient Instructions Diet: Low Sodium Activity: As Tolerated Driving: Do Not Drive Showering/Bathing: May Shower Notify Provider of: Fever, Increased Pain, Swelling and Redness, Drainage, Nausea and/or Vomiting - Discharge Plan Prescriptions/Med Rec: Carvedilol [Coreg] 6.25 mg PO BID 30 Days #60 tablet Citalopram [Citalopram HBr] 20 mg PO DAILY 30 Days #30 tablet Folic Acid 1 mg PO DAILY 30 Days #30 tab Lisinopril [Prinivil] 5 mg PO DAILY 30 Days #30 tablet Multivitamin with Minerals [Multiple Vitamin] 1 each PO DAILY 30 Days tablet Thiamine [Vitamin B-1] 100 mg PO BEDTIME 30 Days #30 tab Home Medications: Home Meds Carvedilol [Coreg] 6.25 mg PO BID 30 Days #60 tablet 12/09/17 [Rx] Citalopram [Citalopram HBr] 20 mg PO DAILY 30 Days #30 tablet 12/09/17 [Rx] Folic Acid 1 mg PO DAILY 30 Days #30 tab 12/09/17 [Rx] Lisinopril [Prinivil] 5 mg PO DAILY 30 Days #30 tablet 12/09/17 [Rx] Multivitamin with Minerals [Multiple Vitamin] 1 each PO DAILY 30 Days tablet [Rx] Thiamine [Vitamin B-1] 100 mg PO BEDTIME 30 Days #30 tab 12/09/17 [Rx] Patient Handouts: Chewable Multivitamin with Minerals and Iron formulations, Substance Use Disorder, Carvedilol tablets, Thiamine, Vitamin B1 tablets, Lisinopril tablets, Low-Sodium Eating Plan, Heart Failure, [id number], Preventing Heart Failure, Folic Acid, Vitamin B9 tablets Referrals: Jl Silver MD [Physician] - 12/15/17 1:30 pm Jacques Villanueva MD [Resident] - 12/14/17 2:30 pm - Discharge Summary/Plan Comment DC Time >30 min.: No - Patient Data Vitals - Most Recent: Last Vital Signs Temp 36.3 C 12/09/17 11:39 Pulse 84 12/09/17 11:39 Resp 18 12/09/17 11:39 BP 110/62 12/09/17 11:39 Pulse Ox 94 L 12/09/17 11:39 Weight - Most Recent: 108.2 kg Lab Results - Last 24 hrs: Laboratory Results - last 24 hr 12/08/17 Range/Units 05:13 Hepatitis A IgM Ab Non Reactive (NR) Hep Bs Antigen Non Reactive (NR) Hep B Core IgM Ab Non Reactive (NR) Hepatitis C Antibody Non Reactive (NR) Hepatitis Interpret SEE BELOW Med Orders - Current: Current Medications Discontinued Medications Calcium Carbonate/Glycine (Tums) 1,000 mg PO ONETIME ONE Stop: 12/06/17 18:35 Last Admin: 12/06/17 18:42 Dose: 1,000 mg Calcium Carbonate/Glycine (Tums) 1,000 mg PO DAILY [facility] Last Admin: 12/09/17 09:25 Dose: 1,000 mg Carvedilol (Coreg) 6.25 mg PO BID [facility] Last Admin: 12/09/17 09:24 Dose: 6.25 mg Citalopram Hydrobromide (Celexa) 20 mg PO DAILY [facility] Last Admin: 12/09/17 09:24 Dose: 20 mg Folic Acid (Folic Acid) 1 mg PO DAILY [facility] Last Admin: 12/09/17 09:24 Dose: 1 mg Furosemide (Lasix) 40 mg IVPUSH NOW ONE Stop: 12/04/17 23:20 Last Admin: 12/05/17 00:01 Dose: 40 mg Furosemide (Lasix) 40 mg IVPUSH NOW ONE Stop: 12/05/17 11:28 Last Admin: 12/05/17 11:42 Dose: 40 mg Furosemide (Lasix) 40 mg IVPUSH DAILY ONE Stop: 12/06/17 14:00 Last Admin: 12/06/17 14:22 Dose: 40 mg Furosemide (Lasix) 40 mg IVPUSH NOW ONE Stop: 12/07/17 10:37 Last Admin: 12/07/17 11:09 Dose: 40 mg Heparin Sodium (Porcine) (Heparin Sodium) 5,000 units SUBCUT Q12H [facility] Last Admin: 12/09/17 12:10 Dose: 5,000 units Sodium Chloride (Normal Saline) 1,000 mls @ 999 mls/hr IV STAT ONE Stop: 12/04/17 21:43 Last Admin: 12/04/17 20:53 Dose: 999 mls/hr Magnesium Sulfate 2 gm/ Premix 50 mls @ 50 mls/hr IV ONETIME ONE Stop: 12/04/17 23:23 Last Admin: 12/04/17 22:27 Dose: 50 mls/hr Multivitamins/Minerals 10 ml/Thiamine HCl 100 mg/ Folic Acid 1 mg/ Sodium Chloride 1,011.2 mls @ 150 mls/hr IV ONETIME ONE Stop: 12/05/17 05:18 Last Admin: 12/04/17 22:59 Dose: 150 mls/hr Magnesium Sulfate 4 gm/ Premix 100 mls @ 25 mls/hr IV ONETIME ONE Stop: 12/05/17 15:13 Last Admin: 12/05/17 11:28 Dose: 25 mls/hr Magnesium Sulfate 4 gm/ Premix 100 mls @ 25 mls/hr IV ONETIME ONE Stop: 12/07/17 12:33 Last Admin: 12/07/17 09:01 Dose: 25 mls/hr Iopamidol (Isovue Multipack-370 (76%)) 100 ml IVPUSH ONETIME STA Stop: 12/04/17 20:51 Last Admin: 12/04/17 20:51 Dose: 100 ml Lisinopril (Prinivil) 5 mg PO DAILY PRANAY Last Admin: 12/09/17 09:24 Dose: 5 mg Lorazepam (Ativan) 1 mg IVPUSH ONETIME ONE Stop: 12/04/17 20:45 Last Admin: 12/04/17 20:53 Dose: 1 mg Lorazepam (Ativan) 1 mg IVPUSH Q4H PRN PRN Reason: Anxiety Last Admin: 12/06/17 00:21 Dose: 1 mg Lorazepam (Ativan) 0 mg IV ASDIRECTED PRANAY PRN Reason: Protocol Last Admin: 12/06/17 03:44 Dose: 1 mg Lorazepam (Ativan) 0 mg PO ASDIRECTED PRN; Protocol PRN Reason: Anxiety Last Admin: 12/07/17 13:07 Dose: 1 mg Morphine Sulfate (Morphine) 2 mg IVPUSH Q2H PRN PRN Reason: Pain (severe 7-10) Stop: 12/05/17 23:24 Ondansetron HCl (Zofran) 4 mg IVPUSH ONETIME ONE Stop: 12/04/17 20:44 Last Admin: 12/04/17 20:53 Dose: 4 mg Ondansetron HCl (Zofran Odt) 4 mg PO Q4H PRN PRN Reason: nausea, able to take PO Last Admin: 12/09/17 12:09 Dose: 4 mg Ondansetron HCl (Zofran) 4 mg IVPUSH Q4H PRN PRN Reason: Nausea Last Admin: 12/09/17 02:44 Dose: 4 mg Oxycodone HCl (Oxycodone) 5 mg PO Q4H PRN PRN Reason: Pain (moderate 4-6) Pantoprazole Sodium (Protonix Iv) 80 mg IVPUSH .BOLUS ONE Stop: 12/04/17 20:44 Last Admin: 12/04/17 20:53 Dose: 80 mg Pantoprazole Sodium (Protonix Iv) 80 mg IV Q12HR [facility] Last Admin: 12/09/17 09:23 Dose: 80 mg Promethazine HCl (Phenergan) 12.5 mg IM Q6H PRN PRN Reason: Nausea/Vomiting Sodium Chloride (Saline Flush) 10 ml FLUSH ASDIRECTED PRN PRN Reason: Keep Vein Open Last Admin: 12/04/17 20:54 Dose: 10 ml Sodium Chloride (Saline Flush) 2.5 ml FLUSH ASDIRECTED PRN PRN Reason: Keep Vein Open Last Admin: 12/04/17 20:54 Dose: 2.5 ml Temazepam (Restoril) 15 mg PO BEDTIME PRN PRN Reason: Sleep Last Admin: 12/09/17 00:15 Dose: 15 mg Thiamine HCl (Vitamin B-1) 100 mg PO BEDTIME [facility] Last Admin: 12/08/17 20:38 Dose: 100 mg *Q Meaningful Use (DIS) - VTE *Q VTE Criteria *Q: - Stroke *Q Stroke Criteria *Q: - AMI *Q AMI Criteria *Q: <Rashaun Ibarra - Last Filed: 12/28/17 10:58> - Patient Data Vitals - Most Recent: Last Vital Signs Temp 36.3 C 12/09/17 11:39 Pulse 84 12/09/17 11:39 Resp 18 12/09/17 11:39 BP 110/62 12/09/17 11:39 Pulse Ox 94 L 12/09/17 11:39 Med Orders - Current: Current Medications Discontinued Medications Calcium Carbonate/Glycine (Tums) 1,000 mg PO ONETIME ONE Stop: 12/06/17 18:35 Last Admin: 12/06/17 18:42 Dose: 1,000 mg Calcium Carbonate/Glycine (Tums) 1,000 mg PO DAILY [facility] Last Admin: 12/09/17 09:25 Dose: 1,000 mg Carvedilol (Coreg) 6.25 mg PO BID [facility] Last Admin: 12/09/17 09:24 Dose: 6.25 mg Citalopram Hydrobromide (Celexa) 20 mg PO DAILY [facility] Last Admin: 12/09/17 09:24 Dose: 20 mg Folic Acid (Folic Acid) 1 mg PO DAILY [facility] Last Admin: 12/09/17 09:24 Dose: 1 mg Furosemide (Lasix) 40 mg IVPUSH NOW ONE Stop: 12/04/17 23:20 Last Admin: 12/05/17 00:01 Dose: 40 mg Furosemide (Lasix) 40 mg IVPUSH NOW ONE Stop: 12/05/17 11:28 Last Admin: 12/05/17 11:42 Dose: 40 mg Furosemide (Lasix) 40 mg IVPUSH DAILY ONE Stop: 12/06/17 14:00 Last Admin: 12/06/17 14:22 Dose: 40 mg Furosemide (Lasix) 40 mg IVPUSH NOW ONE Stop: 12/07/17 10:37 Last Admin: 12/07/17 11:09 Dose: 40 mg Heparin Sodium (Porcine) (Heparin Sodium) 5,000 units SUBCUT Q12H [facility] Last Admin: 12/09/17 12:10 Dose: 5,000 units Sodium Chloride (Normal Saline) 1,000 mls @ 999 mls/hr IV STAT ONE Stop: 12/04/17 21:43 Last Admin: 12/04/17 20:53 Dose: 999 mls/hr Magnesium Sulfate 2 gm/ Premix 50 mls @ 50 mls/hr IV ONETIME ONE Stop: 12/04/17 23:23 Last Admin: 12/04/17 22:27 Dose: 50 mls/hr Multivitamins/Minerals 10 ml/Thiamine HCl 100 mg/ Folic Acid 1 mg/ Sodium Chloride 1,011.2 mls @ 150 mls/hr IV ONETIME ONE Stop: 12/05/17 05:18 Last Admin: 12/04/17 22:59 Dose: 150 mls/hr Magnesium Sulfate 4 gm/ Premix 100 mls @ 25 mls/hr IV ONETIME ONE Stop: 12/05/17 15:13 Last Admin: 12/05/17 11:28 Dose: 25 mls/hr Magnesium Sulfate 4 gm/ Premix 100 mls @ 25 mls/hr IV ONETIME ONE Stop: 12/07/17 12:33 Last Admin: 12/07/17 09:01 Dose: 25 mls/hr Iopamidol (Isovue Multipack-370 (76%)) 100 ml IVPUSH ONETIME STA Stop: 12/04/17 20:51 Last Admin: 12/04/17 20:51 Dose: 100 ml Lisinopril (Prinivil) 5 mg PO DAILY [facility] Last Admin: 12/09/17 09:24 Dose: 5 mg Lorazepam (Ativan) 1 mg IVPUSH ONETIME ONE Stop: 12/04/17 20:45 Last Admin: 12/04/17 20:53 Dose: 1 mg Lorazepam (Ativan) 1 mg IVPUSH Q4H PRN PRN Reason: Anxiety Last Admin: 12/06/17 00:21 Dose: 1 mg Lorazepam (Ativan) 0 mg IV ASDIRECTED PRANAY PRN Reason: Protocol Last Admin: 12/06/17 03:44 Dose: 1 mg Lorazepam (Ativan) 0 mg PO ASDIRECTED PRN; Protocol PRN Reason: Anxiety Last Admin: 12/07/17 13:07 Dose: 1 mg Morphine Sulfate (Morphine) 2 mg IVPUSH Q2H PRN PRN Reason: Pain (severe 7-10) Stop: 12/05/17 23:24 Ondansetron HCl (Zofran) 4 mg IVPUSH ONETIME ONE Stop: 12/04/17 20:44 Last Admin: 12/04/17 20:53 Dose: 4 mg Ondansetron HCl (Zofran Odt) 4 mg PO Q4H PRN PRN Reason: nausea, able to take PO Last Admin: 12/09/17 12:09 Dose: 4 mg Ondansetron HCl (Zofran) 4 mg IVPUSH Q4H PRN PRN Reason: Nausea Last Admin: 12/09/17 02:44 Dose: 4 mg Oxycodone HCl (Oxycodone) 5 mg PO Q4H PRN PRN Reason: Pain (moderate 4-6) Pantoprazole Sodium (Protonix Iv) 80 mg IVPUSH .BOLUS ONE Stop: 12/04/17 20:44 Last Admin: 12/04/17 20:53 Dose: 80 mg Pantoprazole Sodium (Protonix Iv) 80 mg IV Q12HR [facility] Last Admin: 12/09/17 09:23 Dose: 80 mg Promethazine HCl (Phenergan) 12.5 mg IM Q6H PRN PRN Reason: Nausea/Vomiting Sodium Chloride (Saline Flush) 10 ml FLUSH ASDIRECTED PRN PRN Reason: Keep Vein Open Last Admin: 12/04/17 20:54 Dose: 10 ml Sodium Chloride (Saline Flush) 2.5 ml FLUSH ASDIRECTED PRN PRN Reason: Keep Vein Open Last Admin: 12/04/17 20:54 Dose: 2.5 ml Temazepam (Restoril) 15 mg PO BEDTIME PRN PRN Reason: Sleep Last Admin: 12/09/17 00:15 Dose: 15 mg Thiamine HCl (Vitamin B-1) 100 mg PO BEDTIME PRANAY Last Admin: 12/08/17 20:38 Dose: 100 mg *Q Meaningful Use (DIS) - VTE *Q VTE Criteria *Q: - Stroke *Q Stroke Criteria *Q: - AMI *Q AMI Criteria *Q: - Free Text/Narrative Note: I have examined the patient. I have discussed findings and treatment plan with the resident. I agree with the assessment and plan outlined in the following resident's note.
== END 2017-12-09 15:10 | disposition home or self-care (01) | DRG 948 ==
LOC: MW.ED 20:12 → MW.MS 22:48 → OBSVTOIN 12-06 10:31 → MW.MS 12-06 12:06 → MW.OB 12-08 10:59 → MW.MS 12-08 11:07
PROVIDERS: ADMIT Family Medicine; ATTEND Family Medicine
DX: R60.1 Generalized edema (principal); J90 Pleural effusion, not elsewhere classified; E87.1 Hypo-osmolality and hyponatremia; F10.239 Alcohol dependence with withdrawal, unspecified; I50.20 Unspecified systolic (congestive) heart failure; R11.2 Nausea with vomiting, unspecified; I07.1 Rheumatic tricuspid insufficiency; I10 Essential (primary) hypertension; R19.09 Other intra-abdominal and pelvic swelling, mass and lump; K76.0 Fatty (change of) liver, not elsewhere classified; F41.8 Other specified anxiety disorders; R79.89 Other specified abnormal findings of blood chemistry; R06.02 Shortness of breath; E83.42 Hypomagnesemia; K29.80 Duodenitis without bleeding; Z88.8 Allergy status to other drugs, medicaments and biological substances; Z79.899 Other long term (current) drug therapy
CPT/HCPCS: 36415; 71045; 71045-26; 74177; 74177-26; 76705; 76705-26; 80053; 80074; 81001; 82150; 82962; 83690; 83735; 84100; 85025; 85610; 87804; 93005; 93306; 96361; 96365; 96375; 99284; 99285-25; A9270-GY; C9113; G0480; J1644; J1940; J2060; J2405; J3411; J3475; J7040; Q9967

== ENCOUNTER 2018-02-05 18:27 | Inpatient (IN) | payer MEDICAID ==
[2018-02-05] MEDS ORDERED: Sodium Chloride 0.9% 10 ML Syringe FLUSH PRN (18:39)
[2018-02-05] MEDS ORDERED: Sodium Chloride 0.9% 2.5 ML Syringe FLUSH PRN (18:39)
[2018-02-05] MEDS ORDERED: Furosemide 40 MG/4 ML VIAL IVPUSH ONE (18:39)
[2018-02-05] MEDS ORDERED: Nitroglycerin 2% Oint 1 GM UD Packet TOP ONE (18:39)
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
[2018-02-05 19:19] LABS: CHLORIDE,CL 100 mmol/L (98-107); SODIUM,NA 133 mmol/L (136-148)
[2018-02-05] MEDS ORDERED: Metoprolol Tartrate 5 MG/5 ML SDV IVPUSH STA (19:46)
[2018-02-05] MEDS ORDERED: Aspirin 81 MG Tab.Chew PO ONE (19:47)
[2018-02-05] MEDS ORDERED: Ondansetron 4 MG/2 ML SDV IVPUSH PRN (20:45)
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
[2018-02-05] MEDS ORDERED: Furosemide 40 MG/4 ML VIAL IVPUSH SCH (21:00)
[2018-02-05] MEDS: Folic Acid 50 MG/10 ML MDV SUBCUT SCH (22:06)
[2018-02-05] MEDS: Enoxaparin 40 MG/0.4 ML Syringe SUBCUT SCH (22:07)
[2018-02-05] MEDS: Thiamine 200 MG/2 ML MDV IV SCH (22:07)
[2018-02-06 02:40] LABS: CHLORIDE,CL 102 mmol/L (98-107); SODIUM,NA 136 mmol/L (136-148)
[2018-02-06] MEDS ORDERED: Acetaminophen 325 MG Tab PO PRN (04:37)
[2018-02-06] MEDS ORDERED: traMADol 50 MG Tab PO PRN (04:37)
[2018-02-06] MEDS: Furosemide 40 MG/4 ML VIAL IVPUSH SCH ×2 (06:17→13:52)
--- NOTE | 2018-02-06 09:05 | PCM.PN ---
- Review of Systems Systems Review Comment:: breathing has improved. - Patient Data Vitals - Most Recent: Last Vital Signs Temp 36.4 C 02/06/18 04:00 Pulse 104 H 02/05/18 20:31 Resp 17 02/06/18 07:00 BP 118/94 H 02/06/18 07:00 Pulse Ox 98 02/06/18 07:00 Weight - Most Recent: 108.4 kg I&O - Last 24 Hours: Intake & Output 02/05/18 02/06/18 02/06/18 22:59 06:59 14:59 Intake Total 300 Output Total 1900 600 Balance -1900 -300 Lab Results Last 24 Hours: Laboratory Results - last 24 hr 02/05/18 02/05/18 02/05/18 Range/Units 18:42 18:42 18:42 WBC 6.19 (4.0-11.0) K/uL RBC 4.07 L (4.50-5.90) M/uL Hgb 11.5 L (13.0-17.0) g/dL Hct 35.0 L (38.0-50.0) % MCV 86.0 (80.0-98.0) fL MCH 28.3 (27.0-32.0) pg MCHC 32.9 (31.0-37.0) g/dL RDW Std Deviation 53.4 (28.0-62.0) fl RDW Coeff of Pancho 17 H (11.0-15.0) % Plt Count 276 (150-400) K/uL MPV 8.80 (7.40-12.00) fL Neut % (Auto) 48.5 (48.0-80.0) % Lymph % (Auto) 39.1 (16.0-40.0) % [place] % (Auto) 11.8 (0.0-15.0) % Eos % (Auto) 0.3 (0.0-7.0) % Baso % (Auto) 0.3 (0.0-1.5) % Neut # (Auto) 3.0 (1.4-5.7) K/uL Lymph # (Auto) 2.4 (0.6-2.4) K/uL [place] # (Auto) 0.7 (0.0-0.8) K/uL Eos # (Auto) 0.0 (0.0-0.7) K/uL Baso # (Auto) 0.0 (0.0-0.1) K/uL Nucleated RBC % 0.0 /100WBC Nucleated RBCs # 0 K/uL INR 1.34 ABG pH (7.35-7.45) ABG pCO2 (35-45) mmHG ABG pO2 (75-100) mmHG ABG HCO3 (22-26) mEq/L ABG Total CO2 ABG Base Excess (-2.0-2.0) Sodium 133 L (136-148) mmol/L Potassium 4.1 (3.5-5.1) mmol/L Chloride 100 (98-107) mmol/L Carbon Dioxide 24.4 (21.0-32.0) mmol/L BUN 4 L (7.0-18.0) mg/dL Creatinine 0.9 (0.8-1.3) mg/dL Est Cr Clr Drug Dosing 103.65 mL/min Estimated GFR (MDRD) > 60.0 ml/min Glucose 167 H (74-106) mg/dL Calcium 7.9 L (8.5-10.1) mg/dL Total Bilirubin 1.0 (0.2-1.0) mg/dL AST 43 H (15-37) IU/L ALT 14 (14-63) IU/L Alkaline Phosphatase 156 H (46-116) U/L Troponin I 0.251 H* (0.000-0.056) ng/mL B-Natriuretic Peptide (<100) PG/ML Total Protein 8.5 H (6.4-8.2) g/dL Albumin 2.4 L (3.4-5.0) g/dL Globulin 6.1 H (2.0-3.5) g/dL Albumin/Globulin Ratio 0.4 L (1.3-2.8) Ethyl Alcohol 102 mg/dL 02/05/18 02/05/18 02/06/18 Range/Units 18:42 18:50 02:02 WBC (4.0-11.0) K/uL RBC (4.50-5.90) M/uL Hgb (13.0-17.0) g/dL Hct (38.0-50.0) % MCV (80.0-98.0) fL MCH (27.0-32.0) pg MCHC (31.0-37.0) g/dL RDW Std Deviation (28.0-62.0) fl RDW Coeff of Pancho (11.0-15.0) % Plt Count (150-400) K/uL MPV (7.40-12.00) fL Neut % (Auto) (48.0-80.0) % Lymph % (Auto) (16.0-40.0) % [place] % (Auto) (0.0-15.0) % Eos % (Auto) (0.0-7.0) % Baso % (Auto) (0.0-1.5) % Neut # (Auto) (1.4-5.7) K/uL Lymph # (Auto) (0.6-2.4) K/uL [place] # (Auto) (0.0-0.8) K/uL Eos # (Auto) (0.0-0.7) K/uL Baso # (Auto) (0.0-0.1) K/uL Nucleated RBC % /100WBC Nucleated RBCs # K/uL INR ABG pH 7.381 (7.35-7.45) ABG pCO2 43 (35-45) mmHG ABG pO2 21 L* (75-100) mmHG ABG HCO3 25 (22-26) mEq/L ABG Total CO2 23.5 ABG Base Excess -0.1 (-2.0-2.0) Sodium (136-148) mmol/L Potassium (3.5-5.1) mmol/L Chloride (98-107) mmol/L Carbon Dioxide (21.0-32.0) mmol/L BUN (7.0-18.0) mg/dL Creatinine (0.8-1.3) mg/dL Est Cr Clr Drug Dosing mL/min Estimated GFR (MDRD) ml/min Glucose (74-106) mg/dL Calcium (8.5-10.1) mg/dL Total Bilirubin (0.2-1.0) mg/dL AST (15-37) IU/L ALT (14-63) IU/L Alkaline Phosphatase (46-116) U/L Troponin I 0.293 H* (0.000-0.056) ng/mL B-Natriuretic Peptide 3272 H (<100) PG/ML Total Protein (6.4-8.2) g/dL Albumin (3.4-5.0) g/dL Globulin (2.0-3.5) g/dL Albumin/Globulin Ratio (1.3-2.8) Ethyl Alcohol mg/dL 02/06/18 02/06/18 Range/Units 02:02 02:02 WBC 4.60 (4.0-11.0) K/uL RBC 3.87 L (4.50-5.90) M/uL Hgb 10.6 L (13.0-17.0) g/dL Hct 32.7 L (38.0-50.0) % MCV 84.5 (80.0-98.0) fL MCH 27.4 (27.0-32.0) pg MCHC 32.4 (31.0-37.0) g/dL RDW Std Deviation 52.4 (28.0-62.0) fl RDW Coeff of Pancho 17 H (11.0-15.0) % Plt Count 249 (150-400) K/uL MPV 8.50 (7.40-12.00) fL Neut % (Auto) (48.0-80.0) % Lymph % (Auto) (16.0-40.0) % [place] % (Auto) (0.0-15.0) % Eos % (Auto) (0.0-7.0) % Baso % (Auto) (0.0-1.5) % Neut # (Auto) (1.4-5.7) K/uL Lymph # (Auto) (0.6-2.4) K/uL [place] # (Auto) (0.0-0.8) K/uL Eos # (Auto) (0.0-0.7) K/uL Baso # (Auto) (0.0-0.1) K/uL Nucleated RBC % 0.0 /100WBC Nucleated RBCs # 0 K/uL INR ABG pH (7.35-7.45) ABG pCO2 (35-45) mmHG ABG pO2 (75-100) mmHG ABG HCO3 (22-26) mEq/L ABG Total CO2 ABG Base Excess (-2.0-2.0) Sodium 136 (136-148) mmol/L Potassium 3.7 (3.5-5.1) mmol/L Chloride 102 (98-107) mmol/L Carbon Dioxide 25.5 (21.0-32.0) mmol/L BUN 4 L (7.0-18.0) mg/dL Creatinine 0.9 (0.8-1.3) mg/dL Est Cr Clr Drug Dosing 103.65 mL/min Estimated GFR (MDRD) > 60.0 ml/min Glucose 100 (74-106) mg/dL Calcium 7.8 L (8.5-10.1) mg/dL Total Bilirubin (0.2-1.0) mg/dL AST (15-37) IU/L ALT (14-63) IU/L Alkaline Phosphatase (46-116) U/L Troponin I (0.000-0.056) ng/mL B-Natriuretic Peptide (<100) PG/ML Total Protein (6.4-8.2) g/dL Albumin (3.4-5.0) g/dL Globulin (2.0-3.5) g/dL Albumin/Globulin Ratio (1.3-2.8) Ethyl Alcohol mg/dL Med Orders - Current: Current Medications Acetaminophen (Tylenol) 650 mg PO Q6H PRN PRN Reason: Pain Last Admin: 02/06/18 04:48 Dose: 650 mg Enoxaparin Sodium (Lovenox) 40 mg SUBCUT Q24H [facility] Last Admin: 02/05/18 22:07 Dose: 40 mg Folic Acid (Folic Acid) 1 mg SUBCUT DAILY [facility] Last Admin: 02/05/18 22:06 Dose: 1 mg Furosemide (Lasix) 40 mg IVPUSH BID@0600,1400 [facility] Last Admin: 02/06/18 06:17 Dose: 40 mg Lorazepam (Ativan) 0 mg IVPUSH Q4H PRN; Protocol PRN Reason: CIWA score Ondansetron HCl (Zofran) 4 mg IVPUSH Q4H PRN PRN Reason: Nausea Last Admin: 02/06/18 04:48 Dose: 4 mg Sodium Chloride (Saline Flush) 10 ml FLUSH ASDIRECTED PRN PRN Reason: Keep Vein Open Sodium Chloride (Saline Flush) 2.5 ml FLUSH ASDIRECTED PRN PRN Reason: Keep Vein Open Thiamine HCl (Vitamin B-1) 100 mg IV DAILY [facility] Last Admin: 02/05/18 22:07 Dose: 100 mg Tramadol HCl (Ultram) 50 mg PO Q6H PRN PRN Reason: Pain Discontinued Medications Aspirin (Aspirin) 324 mg PO ONETIME ONE Stop: 02/05/18 19:48 Last Admin: 02/05/18 20:02 Dose: 324 mg Furosemide (Lasix) 40 mg IVPUSH NOW ONE Stop: 02/05/18 18:40 Last Admin: 02/05/18 18:51 Dose: 40 mg Furosemide (Lasix) 40 mg IVPUSH BID [facility] Last Admin: 02/05/18 22:01 Dose: Not Given Metoprolol Tartrate (Lopressor) 5 mg IVPUSH NOW STA Stop: 02/05/18 19:47 Last Admin: 02/05/18 20:03 Dose: 5 mg Nitroglycerin (Nitro-Bid 2%) 1 gm TOP ONETIME ONE Stop: 02/05/18 18:40 Last Admin: 02/05/18 18:47 Dose: 1 gm - Exam General: Alert, Oriented Lungs: Clear to Auscultation, Normal Respiratory Effort Cardiovascular: Regular Rate, Regular Rhythm GI/Abdominal Exam: Normal Bowel Sounds, Soft, Non-Tender Extremities: Pedal Edema (+2 edema up to abdomen) Skin: Warm, Dry, Intact - Problem List Review Problem List Initiated/Reviewed/Updated: Yes - My Orders Last 24 Hours: My Active Orders 02/05/18 20:45 Oxygen Therapy [RC] PRN Vital Signs [RC] Q1H Enoxaparin [Lovenox] 40 mg SUBCUT Q24H Ondansetron [Zofran] 4 mg IVPUSH Q4H PRN Resuscitation Status Routine 02/05/18 20:46 Sequential Compression Device [OM.PC] Per Unit Routine 02/05/18 20:48 LORazepam [Ativan] See Protocol IVPUSH Q4H PRN 02/05/18 21:00 Folic Acid 1 mg SUBCUT DAILY Thiamine [Vitamin B-1] 100 mg IV DAILY 02/06/18 06:00 Furosemide [Lasix] 40 mg IVPUSH BID@0600,1400 02/06/18 12:00 TROPONIN I [CHEM] Routine - Plan Plan:: 47 yo male admitted with CHF exacerbation and ETOH abuse CHF/anasarca: will continue lasix, ETOH abuse:will continue ativan prn CIWA protocol, thiamin and folic acid.
[2018-02-06] MEDS: LORazepam 2 MG/ML SDV IVPUSH PRN (10:51)
[2018-02-06] MEDS: Thiamine 200 MG/2 ML MDV IV SCH (10:55)
[2018-02-06] MEDS: Folic Acid 50 MG/10 ML MDV SUBCUT SCH (10:55)
--- NOTE | 2018-02-06 14:04 | CR ---
EXAM DATE: 02/05/18 PATIENT'S AGE: 47 Patient: MONICA ALDRICH Facility: [place], [place] Site . Site : [id number] Study: XRay Chest [id number] 7:40:27 PM Ordering Physician: Doctor Ferris Final Report: INDICATION: Chest pain. TECHNIQUE: Portable chest. IMPRESSION: Heart is upper normal in size . Probable right basilar effusion. Blunting of right costophrenic angle. Right upper lobe and left lung are clear. No pneumothorax. Mediastinal contours are normal. Dictated by Bobby Knight MD @ Feb 05 2018 7:56PM (Electronic Signature) Report Signed by Proxy. MARITA
[2018-02-06] MEDS ORDERED: Metoprolol Succinate 25 MG Tab.ER PO ONE (17:06)
[2018-02-06] MEDS: Enoxaparin 40 MG/0.4 ML Syringe SUBCUT SCH (20:55)
[2018-02-07] MEDS: LORazepam 2 MG/ML SDV IVPUSH PRN (01:13)
[2018-02-07 05:59] LABS: CHLORIDE,CL 106 mmol/L (98-107); SODIUM,NA 138 mmol/L (136-148)
[2018-02-07] MEDS: Furosemide 40 MG/4 ML VIAL IVPUSH SCH ×2 (06:25→13:29)
[2018-02-07] MEDS: Thiamine 200 MG/2 ML MDV IV SCH (08:04)
[2018-02-07] MEDS: Folic Acid 50 MG/10 ML MDV SUBCUT SCH (08:04)
[2018-02-07] MEDS ORDERED: Magnesium Sulfate/Water 2 GM in Premix Bag 1 BAG IV ONE (09:50)
[2018-02-07] MEDS ORDERED: Metoprolol Succinate 25 MG Tab.ER PO ONE (11:59)
--- NOTE | 2018-02-07 14:07 | PCM.PN ---
- General Info Date of Service: 02/07/18 Admission Dx/Problem (Free Text): Admission Diagnosis/Problem Admission Diagnosis/Problem CHF, Congestive heart failure Functional Status: Reports: Pain Controlled, Tolerating Diet - Review of Systems General: Reports: Weakness HEENT: Reports: No Symptoms Pulmonary: Reports: Shortness of Breath Cardiovascular: Reports: Dyspnea on Exertion, Orthopnea, Edema Gastrointestinal: Reports: No Symptoms Genitourinary: Reports: No Symptoms Musculoskeletal: Reports: No Symptoms Skin: Reports: No Symptoms Neurological: Reports: No Symptoms Psychiatric: Reports: No Symptoms - Patient Data Vitals - Most Recent: Last Vital Signs Temp 97.2 F 02/07/18 12:00 Pulse 103 H 02/07/18 12:04 Resp 20 02/07/18 12:00 BP 96/69 02/07/18 12:04 Pulse Ox 95 02/07/18 12:00 Weight - Most Recent: 234 lb 9.149 oz I&O - Last 24 Hours: Intake & Output 02/06/18 02/07/18 02/07/18 22:59 06:59 14:59 Intake Total 1140 1250 1263 Output Total 4050 850 3350 Balance -2910 400 -2087 Lab Results Last 24 Hours: Laboratory Results - last 24 hr 02/07/18 02/07/18 Range/Units 05:25 05:25 WBC 4.08 (4.0-11.0) K/uL RBC 3.94 L (4.50-5.90) M/uL Hgb 11.0 L (13.0-17.0) g/dL Hct 34.1 L (38.0-50.0) % MCV 86.5 (80.0-98.0) fL MCH 27.9 (27.0-32.0) pg MCHC 32.3 (31.0-37.0) g/dL RDW Std Deviation 54.8 (28.0-62.0) fl RDW Coeff of Pancho 17 H (11.0-15.0) % Plt Count 252 (150-400) K/uL MPV 8.60 (7.40-12.00) fL Neut % (Auto) 44.8 L (48.0-80.0) % Lymph % (Auto) 39.5 (16.0-40.0) % [place] % (Auto) 14.0 (0.0-15.0) % Eos % (Auto) 1.2 (0.0-7.0) % Baso % (Auto) 0.5 (0.0-1.5) % Neut # (Auto) 1.8 (1.4-5.7) K/uL Lymph # (Auto) 1.6 (0.6-2.4) K/uL [place] # (Auto) 0.6 (0.0-0.8) K/uL Eos # (Auto) 0.1 (0.0-0.7) K/uL Baso # (Auto) 0.0 (0.0-0.1) K/uL Nucleated RBC % 0.0 /100WBC Nucleated RBCs # 0 K/uL Sodium 138 (136-148) mmol/L Potassium 3.9 (3.5-5.1) mmol/L Chloride 106 (98-107) mmol/L Carbon Dioxide 28.2 (21.0-32.0) mmol/L BUN 9 (7.0-18.0) mg/dL Creatinine 0.9 (0.8-1.3) mg/dL Est Cr Clr Drug Dosing 103.65 mL/min Estimated GFR (MDRD) > 60.0 ml/min Glucose 93 (74-106) mg/dL Calcium 8.0 L (8.5-10.1) mg/dL Magnesium 1.2 L (1.5-2.0) mg/dL Med Orders - Current: Current Medications Acetaminophen (Tylenol) 650 mg PO Q6H PRN PRN Reason: Pain Last Admin: 02/06/18 04:48 Dose: 650 mg Enoxaparin Sodium (Lovenox) 40 mg SUBCUT Q24H [facility] Last Admin: 02/06/18 20:55 Dose: 40 mg Folic Acid (Folic Acid) 1 mg SUBCUT DAILY [facility] Last Admin: 02/07/18 08:04 Dose: 1 mg Furosemide (Lasix) 40 mg IVPUSH BID@0600,1400 [facility] Last Admin: 02/07/18 13:29 Dose: 40 mg Lisinopril (Prinivil) 5 mg PO BEDTIME PRANAY Lorazepam (Ativan) 0 mg IVPUSH Q4H PRN; Protocol PRN Reason: CIWA score Last Admin: 02/07/18 01:13 Dose: 1 mg Ondansetron HCl (Zofran) 4 mg IVPUSH Q4H PRN PRN Reason: Nausea Last Admin: 02/06/18 04:48 Dose: 4 mg Sodium Chloride (Saline Flush) 10 ml FLUSH ASDIRECTED PRN PRN Reason: Keep Vein Open Sodium Chloride (Saline Flush) 2.5 ml FLUSH ASDIRECTED PRN PRN Reason: Keep Vein Open Thiamine HCl (Vitamin B-1) 100 mg IV DAILY [facility] Last Admin: 02/07/18 08:04 Dose: 100 mg Tramadol HCl (Ultram) 50 mg PO Q6H PRN PRN Reason: Pain Discontinued Medications Aspirin (Aspirin) 324 mg PO ONETIME ONE Stop: 02/05/18 19:48 Last Admin: 02/05/18 20:02 Dose: 324 mg Furosemide (Lasix) 40 mg IVPUSH NOW ONE Stop: 02/05/18 18:40 Last Admin: 02/05/18 18:51 Dose: 40 mg Furosemide (Lasix) 40 mg IVPUSH BID [facility] Last Admin: 02/05/18 22:01 Dose: Not Given Magnesium Sulfate 2 gm/ Premix 50 mls @ 50 mls/hr IV ONETIME ONE Stop: 02/07/18 10:49 Last Admin: 02/07/18 09:59 Dose: 50 mls/hr Metoprolol Succinate (Toprol Xl) 12.5 mg PO ONETIME ONE Stop: 02/06/18 17:07 Last Admin: 02/06/18 17:24 Dose: 12.5 mg Metoprolol Succinate (Toprol Xl) 25 mg PO ONETIME ONE Stop: 02/07/18 12:00 Last Admin: 02/07/18 12:04 Dose: 25 mg Metoprolol Tartrate (Lopressor) 5 mg IVPUSH NOW STA Stop: 02/05/18 19:47 Last Admin: 02/05/18 20:03 Dose: 5 mg Nitroglycerin (Nitro-Bid 2%) 1 gm TOP ONETIME ONE Stop: 02/05/18 18:40 Last Admin: 02/05/18 18:47 Dose: 1 gm - Exam Quality Assessment: Supplemental Oxygen (2l) General: Alert, Oriented, Cooperative HEENT: Pupils Equal, Pupils Reactive Neck: Supple, Trachea Midline (jvd), JVD Lungs: Decreased Breath Sounds Cardiovascular: Regular Rate, Regular Rhythm, Tachycardia, Gallops GI/Abdominal Exam: Normal Bowel Sounds, Soft, Non-Tender Back Exam: Normal Inspection Extremities: Pedal Edema, Other (swelling of the left calf more than the rt) - Problem List & Annotations (1) Systolic CHF SNOMED Code(s): 603994279 Code(s): I50.20 - UNSPECIFIED SYSTOLIC (CONGESTIVE) HEART FAILURE Status: Acute Current Visit: Yes (2) Alcohol abuse SNOMED Code(s): 74768441 Code(s): F10.10 - ALCOHOL ABUSE, UNCOMPLICATED Status: Acute Current Visit: Yes (3) Hypomagnesemia SNOMED Code(s): 892066789 Code(s): E83.42 - HYPOMAGNESEMIA Status: Acute Current Visit: Yes - Problem List Review Problem List Initiated/Reviewed/Updated: Yes - My Orders Last 24 Hours: My Active Orders 02/07/18 09:47 VL Duplex Lwr Ext Veins Ltd Lt [US] Routine 02/07/18 10:06 Transfer Patient (Change bed) [ADT] Routine 02/07/18 10:14 Telemetry Monitoring [Cardiac Monitoring] [RC] Q8H 02/07/18 21:00 Lisinopril [Prinivil] 5 mg PO BEDTIME - Plan Plan:: 47 yo male admitted with CHF exacerbation and ETOH abuse CHF/anasarca , improving - will continue lasix 40 mg iv q 12h supplement electrolytes, downgrade patient to telemetry start lisinopril 5 mg po daily F/up Cardiology Hypomagnesiemia- supplement magnesium with magnesium sulphate 2 grams iv one dose ETOH abuse:will continue ativan prn CIWA protocol, thiamin and folic acid.
--- NOTE | 2018-02-07 15:06 | US ---
ULTRASOUND EXAMINATION OF the left lower extremity WITH DOPPLER HISTORY: Swelling FINDINGS: Examination of the left leg was performed from the groin to the calf region. All visualized segments including common femoral, proximal greater saphenous, superficial femoral, popliteal and calf veins appear patent with good compressibility and augmentation. There is no evidence of a deep vein thromb osis. Mild edema is noted within the subcutaneous tissues. IMPRESSION: 1. No evidence of a DVT.
--- NOTE | 2018-02-07 18:32 | PCM.PN ---
- General Info Date of Service: 02/07/18 Admission Dx/Problem (Free Text): Admission Diagnosis/Problem Admission Diagnosis/Problem CHF, Congestive heart failure Subjective Update: The patient has felt better, there was swelling on the left > right, he made a good urine output, his BP 100s, HR 100. He is on lasix 40 IV BID, toprol 12.5 was given last night - Review of Systems General: Reports: No Symptoms HEENT: Reports: No Symptoms Pulmonary: Reports: Shortness of Breath Cardiovascular: Reports: No Symptoms Gastrointestinal: Reports: No Symptoms Genitourinary: Reports: No Symptoms Skin: Reports: No Symptoms Neurological: Reports: No Symptoms - Patient Data Vitals - Most Recent: Last Vital Signs Temp 36.3 C 02/07/18 16:00 Pulse 103 H 02/07/18 12:04 Resp 18 02/07/18 16:00 BP 104/77 02/07/18 16:00 Pulse Ox 93 L 02/07/18 16:00 Weight - Most Recent: 106.4 kg I&O - Last 24 Hours: Intake & Output 02/07/18 02/07/18 02/07/18 06:59 14:59 22:59 Intake Total 1250 1263 740 Output Total 850 3350 1015 Balance 400 -4780 -275 Lab Results Last 24 Hours: Laboratory Results - last 24 hr 02/07/18 02/07/18 Range/Units 05:25 05:25 WBC 4.08 (4.0-11.0) K/uL RBC 3.94 L (4.50-5.90) M/uL Hgb 11.0 L (13.0-17.0) g/dL Hct 34.1 L (38.0-50.0) % MCV 86.5 (80.0-98.0) fL MCH 27.9 (27.0-32.0) pg MCHC 32.3 (31.0-37.0) g/dL RDW Std Deviation 54.8 (28.0-62.0) fl RDW Coeff of Pancho 17 H (11.0-15.0) % Plt Count 252 (150-400) K/uL MPV 8.60 (7.40-12.00) fL Neut % (Auto) 44.8 L (48.0-80.0) % Lymph % (Auto) 39.5 (16.0-40.0) % Cass % (Auto) 14.0 (0.0-15.0) % Eos % (Auto) 1.2 (0.0-7.0) % Baso % (Auto) 0.5 (0.0-1.5) % Neut # (Auto) 1.8 (1.4-5.7) K/uL Lymph # (Auto) 1.6 (0.6-2.4) K/uL Cass # (Auto) 0.6 (0.0-0.8) K/uL Eos # (Auto) 0.1 (0.0-0.7) K/uL Baso # (Auto) 0.0 (0.0-0.1) K/uL Nucleated RBC % 0.0 /100WBC Nucleated RBCs # 0 K/uL Sodium 138 (136-148) mmol/L Potassium 3.9 (3.5-5.1) mmol/L Chloride 106 (98-107) mmol/L Carbon Dioxide 28.2 (21.0-32.0) mmol/L BUN 9 (7.0-18.0) mg/dL Creatinine 0.9 (0.8-1.3) mg/dL Est Cr Clr Drug Dosing 103.65 mL/min Estimated GFR (MDRD) > 60.0 ml/min Glucose 93 (74-106) mg/dL Calcium 8.0 L (8.5-10.1) mg/dL Magnesium 1.2 L (1.5-2.0) mg/dL Med Orders - Current: Current Medications Acetaminophen (Tylenol) 650 mg PO Q6H PRN PRN Reason: Pain Last Admin: 02/06/18 04:48 Dose: 650 mg Enoxaparin Sodium (Lovenox) 40 mg SUBCUT Q24H [facility] Last Admin: 02/06/18 20:55 Dose: 40 mg Folic Acid (Folic Acid) 1 mg SUBCUT DAILY [facility] Last Admin: 02/07/18 08:04 Dose: 1 mg Furosemide (Lasix) 40 mg IVPUSH BID@0600,1400 [facility] Last Admin: 02/07/18 13:29 Dose: 40 mg Lisinopril (Prinivil) 5 mg PO BEDTIME [facility] Lorazepam (Ativan) 0 mg IVPUSH Q4H PRN; Protocol PRN Reason: CIWA score Last Admin: 02/07/18 01:13 Dose: 1 mg Ondansetron HCl (Zofran) 4 mg IVPUSH Q4H PRN PRN Reason: Nausea Last Admin: 02/06/18 04:48 Dose: 4 mg Sodium Chloride (Saline Flush) 10 ml FLUSH ASDIRECTED PRN PRN Reason: Keep Vein Open Sodium Chloride (Saline Flush) 2.5 ml FLUSH ASDIRECTED PRN PRN Reason: Keep Vein Open Thiamine HCl (Vitamin B-1) 100 mg IV DAILY [facility] Last Admin: 02/07/18 08:04 Dose: 100 mg Tramadol HCl (Ultram) 50 mg PO Q6H PRN PRN Reason: Pain Discontinued Medications Aspirin (Aspirin) 324 mg PO ONETIME ONE Stop: 02/05/18 19:48 Last Admin: 02/05/18 20:02 Dose: 324 mg Furosemide (Lasix) 40 mg IVPUSH NOW ONE Stop: 02/05/18 18:40 Last Admin: 02/05/18 18:51 Dose: 40 mg Furosemide (Lasix) 40 mg IVPUSH BID [facility] Last Admin: 02/05/18 22:01 Dose: Not Given Magnesium Sulfate 2 gm/ Premix 50 mls @ 50 mls/hr IV ONETIME ONE Stop: 02/07/18 10:49 Last Admin: 02/07/18 09:59 Dose: 50 mls/hr Metoprolol Succinate (Toprol Xl) 12.5 mg PO ONETIME ONE Stop: 02/06/18 17:07 Last Admin: 02/06/18 17:24 Dose: 12.5 mg Metoprolol Succinate (Toprol Xl) 25 mg PO ONETIME ONE Stop: 02/07/18 12:00 Last Admin: 02/07/18 12:04 Dose: 25 mg Metoprolol Tartrate (Lopressor) 5 mg IVPUSH NOW STA Stop: 02/05/18 19:47 Last Admin: 02/05/18 20:03 Dose: 5 mg Nitroglycerin (Nitro-Bid 2%) 1 gm TOP ONETIME ONE Stop: 02/05/18 18:40 Last Admin: 02/05/18 18:47 Dose: 1 gm - Exam General: Alert, Oriented HEENT: Pupils Equal, Pupils Reactive Neck: JVD Lungs: Rales Cardiovascular: Regular Rate, Regular Rhythm GI/Abdominal Exam: Normal Bowel Sounds (Male) Exam: No Hernia Back Exam: Normal Inspection Peripheral Pulses: 1+: Carotid (L), Carotid (R), Brachial (L), Brachial (R), Radial (L), Radial (R), Femoral (L), Femoral (R), Popliteal (L), Popliteal (R), Posterior Tibial (L), Posterior Tibial (R), Dorsalis Pedis (L), Dorsalis Pedis ( R) EKG INTERPRETATION Rhythm: Other (ST) - Problem List Review Problem List Initiated/Reviewed/Updated: Yes - Plan Plan:: 47M hx ETOH possible liver cirrhosis with decompensated LV systolic HF 1. CHF, he made a good urine output,l will continue lasix 40 IV BID, will increase toprol XL 25 in AM, lisinopril 5 in PM. He was instructed to stop ETOH , he would need heart cath this can be done as outpatient. - continue lasix 40 IV BID - toprol 25 in am, lisinopril 5 in pm 2. ETOH/ mildly elevated LFT possibly from ETOH vs congestive hepatopathy, possibly cirrhosis
[2018-02-07] MEDS: Lisinopril 5 MG Tab PO SCH (20:37)
[2018-02-07] MEDS: Enoxaparin 40 MG/0.4 ML Syringe SUBCUT SCH (20:37)
[2018-02-08] MEDS: Furosemide 40 MG/4 ML VIAL IVPUSH SCH ×2 (06:23→13:51)
[2018-02-08 06:30] LABS: CHLORIDE,CL 103 mmol/L (98-107); SODIUM,NA 138 mmol/L (136-148)
[2018-02-08] MEDS ORDERED: Magnesium Sulfate/Water 2 GM in Premix Bag 1 BAG IV ONE (08:16)
[2018-02-08] MEDS: Thiamine 200 MG/2 ML MDV IV SCH (08:42)
[2018-02-08] MEDS: Folic Acid 50 MG/10 ML MDV SUBCUT SCH (08:42)
[2018-02-08] MEDS ORDERED: Metoprolol Succinate 25 MG Tab.ER PO SCH (09:00)
--- NOTE | 2018-02-08 10:41 | CONS ---
DATE OF CONSULTATION: 02/06/2018 DATE OF : 1970 PRIMARY CARE PHYSICIAN: None PCP REASON FOR CONSULTATION: Heart failure, troponin elevation. HISTORY OF PRESENT ILLNESS: This is a 47-year-old male, who had a history of alcoholic abuse, tobacco abuse in the past, and history of heart failure, admitted in the hospital last month with an ejection fraction of 15% to 20%. He came back in here to the hospital due to increasing swelling in his legs, as well as increasing shortness of breath. Denies chest pain. He stated that he ran out of his medications since last month, and he did not find a new primary care doctor locally. He just moved here from [place] two months ago, and he also had a history of alcoholic abuse in the past and had been attending a detox program. However, due to his mother passing away, he started drinking again. He stays with his nephew here locally. When he came into the emergency room, his alcohol level was positive. His home medication includes Coreg 6.25 mg twice a day, as well as lisinopril 5 mg; however, he is not on any medication. He denied chest pain to me. He also stated that he was also told that he may have had cirrhosis in the past. PAST MEDICAL HISTORY: 1. History of hypertension. 2. History of heart failure. PAST SURGICAL HISTORY: History of cholecystectomy and hernia repair. SOCIAL HISTORY: He denies smoking. He drinks alcohol every day at least four beers. History of alcohol abuse in the past. No drug use. FAMILY HISTORY: Reported a history of CAD in his parents. CURRENT MEDICATION: Has been given the IV Lasix 40 mg twice a day, but beta lovely and MANUELITO inhibitor have not been started. ALLERGY: He is allergic to ibuprofen. REVIEW OF SYSTEMS: Has been negative, except as indicated in the HPI. PHYSICAL EXAMINATION: VITAL SIGNS: Initial blood pressure was 132/98, currently the blood pressure is 118/88; heart rate is still 100 to 110, sinus tachycardia; temperature is 36.9; respirations 17 to 24; and O2 saturation is ranging 95 to 97 on 1.5 L of oxygen currently. HEENT: Mildly pale. No jaundice. JVD positive. HEART: Tachycardia. Regular rate and rhythm. LUNGS: Crackles bilaterally. ABDOMEN: Soft. Mild distended. Bowel sounds present. Not tender. EXTREMITIES: Legs; edema 1 to 2+ bilaterally. LABORATORY INVESTIGATION: CBC showed WBC of 4,000, hematocrit of 32, hemoglobin of 10, and platelet is 249,000. INR is 1.3. Sodium 136, potassium 3.7, chloride 102, bicarb 25, BUN 4, and creatinine 0.9. Troponin was 0.25, then 0.29, and then 0.27. BNP elevated at 3272. Alcohol level is 102. AST 43, elevated; ALT 14, normal; total bilirubin is normal; and alkaline phosphatase is high at 156. EKG showed sinus tachycardia. QRS duration 82. ASSESSMENT AND PLAN: This is a 47-year-old male, who has a history of alcoholic abuse, possibly liver cirrhosis, who came in with decompensated heart failure, left ventricular systolic dysfunction, ejection fraction of 15% to 20%. He has been responding to the Lasix 40 mg IV twice a day. I will continue IV Lasix. I will start him on Toprol-XL 12.5, one dose, and see how he does; and if his blood pressure is tolerating, I will increase the metoprolol, and that also will help control the heart rate as well. He is put on the [facility] protocol for alcohol withdrawal. He should stop drinking alcohol completely, and his heart failure could be contributed from alcohol as well. He will need ischemic workup, including possibly angiogram. This can be done as an outpatient. His EKG shows sinus tachycardia. I did not see the atrial fibrillation. His troponin elevation most likely is from demand ischemia from heart failure. He possibly has also alcoholic hepatitis, as well as congestive hepatopathy from heart failure. His INR is mildly elevated at 1.3. He may have coagulopathy from cirrhosis. ROBBIN / NATI /[id number]
[2018-02-08] MEDS ORDERED: Temazepam 15 MG Cap PO PRN (13:58)
--- NOTE | 2018-02-08 14:11 | PCM.PN ---
- General Info Date of Service: 02/08/18 Admission Dx/Problem (Free Text): Admission Diagnosis/Problem Admission Diagnosis/Problem CHF, Congestive heart failure Patient feeling better today , saturating well at room air , has a negative balance in am of about 7 l fluid since admission. Would like PT. Was seen by cardiologyst , recommended to start m,etoprolol 25 mg in am and Lisinopril 5 mg po in pm Functional Status: Reports: Pain Controlled - Review of Systems General: Reports: No Symptoms HEENT: Reports: No Symptoms Pulmonary: Reports: No Symptoms Cardiovascular: Reports: Dyspnea on Exertion, Edema (trace) Gastrointestinal: Reports: No Symptoms Musculoskeletal: Reports: No Symptoms Skin: Reports: No Symptoms Neurological: Reports: No Symptoms Psychiatric: Reports: No Symptoms - Patient Data Vitals - Most Recent: Last Vital Signs Temp 97.3 F 02/08/18 11:40 Pulse 97 02/08/18 11:40 Resp 16 02/08/18 11:40 BP 113/80 02/08/18 11:40 Pulse Ox 95 02/08/18 11:40 Weight - Most Recent: 234 lb 6.4 oz I&O - Last 24 Hours: Intake & Output 02/07/18 02/08/18 02/08/18 22:59 06:59 14:59 Intake Total 740 750 50 Output Total 1015 Balance -275 750 50 Lab Results Last 24 Hours: Laboratory Results - last 24 hr 02/08/18 02/08/18 Range/Units 05:37 05:37 WBC 5.17 (4.0-11.0) K/uL RBC 3.96 L (4.50-5.90) M/uL Hgb 11.1 L (13.0-17.0) g/dL Hct 34.2 L (38.0-50.0) % MCV 86.4 (80.0-98.0) fL MCH 28.0 (27.0-32.0) pg MCHC 32.5 (31.0-37.0) g/dL RDW Std Deviation 54.4 (28.0-62.0) fl RDW Coeff of Pancho 18 H (11.0-15.0) % Plt Count 258 (150-400) K/uL MPV 8.60 (7.40-12.00) fL Add Manual Diff YES Neutrophils % (Manual) 69 (48.0-80.0) % Band Neutrophils % 2 % Lymphocytes % (Manual) 22 (16.0-40.0) % Monocytes % (Manual) 4 (0.0-15.0) % Eosinophils % (Manual) 2 (0.0-7.0) % Basophils % (Manual) 1 (0.0-1.5) % Nucleated RBC % 0.0 /100WBC Absolute Seg Neuts 3.6 (1.4-5.7) Band Neutrophils # 0.1 Lymphocytes # (Manual) 1.1 (0.6-2.4) Monocytes # (Manual) 0.2 (0.0-0.8) Eosinophils # (Manual) 0.1 (0.0-0.7) Basophils # (Manual) 0.1 (0.0-0.1) Nucleated RBCs # 0 K/uL Sodium 138 (136-148) mmol/L Potassium 3.7 (3.5-5.1) mmol/L Chloride 103 (98-107) mmol/L Carbon Dioxide 29.4 (21.0-32.0) mmol/L BUN 13 (7.0-18.0) mg/dL Creatinine 0.9 (0.8-1.3) mg/dL Est Cr Clr Drug Dosing 103.65 mL/min Estimated GFR (MDRD) > 60.0 ml/min Glucose 86 (74-106) mg/dL Calcium 7.8 L (8.5-10.1) mg/dL Magnesium 1.4 L (1.5-2.0) mg/dL Total Bilirubin 1.0 (0.2-1.0) mg/dL AST 35 (15-37) IU/L ALT 13 L (14-63) IU/L Alkaline Phosphatase 144 H (46-116) U/L Total Protein 7.8 (6.4-8.2) g/dL Albumin 2.2 L (3.4-5.0) g/dL Globulin 5.6 H (2.0-3.5) g/dL Albumin/Globulin Ratio 0.4 L (1.3-2.8) Med Orders - Current: Current Medications Acetaminophen (Tylenol) 650 mg PO Q6H PRN PRN Reason: Pain Last Admin: 02/06/18 04:48 Dose: 650 mg Enoxaparin Sodium (Lovenox) 40 mg SUBCUT Q24H [facility] Last Admin: 02/07/18 20:37 Dose: 40 mg Folic Acid (Folic Acid) 1 mg SUBCUT DAILY [facility] Last Admin: 02/08/18 08:42 Dose: 1 mg Furosemide (Lasix) 40 mg IVPUSH BID@0600,1400 [facility] Last Admin: 02/08/18 13:51 Dose: 40 mg Lisinopril (Prinivil) 5 mg PO BEDTIME [facility] Last Admin: 02/07/18 20:37 Dose: 5 mg Lorazepam (Ativan) 0 mg IVPUSH Q4H PRN; Protocol PRN Reason: CIWA score Last Admin: 02/07/18 01:13 Dose: 1 mg Metoprolol Succinate (Toprol Xl) 25 mg PO DAILY [facility] Last Admin: 02/08/18 10:05 Dose: 25 mg Ondansetron HCl (Zofran) 4 mg IVPUSH Q4H PRN PRN Reason: Nausea Last Admin: 02/06/18 04:48 Dose: 4 mg Sodium Chloride (Saline Flush) 10 ml FLUSH ASDIRECTED PRN PRN Reason: Keep Vein Open Sodium Chloride (Saline Flush) 2.5 ml FLUSH ASDIRECTED PRN PRN Reason: Keep Vein Open Temazepam (Restoril) 15 mg PO BEDTIME PRN PRN Reason: Insomnia Thiamine HCl (Vitamin B-1) 100 mg IV DAILY [facility] Last Admin: 02/08/18 08:42 Dose: 100 mg Tramadol HCl (Ultram) 50 mg PO Q6H PRN PRN Reason: Pain Discontinued Medications Aspirin (Aspirin) 324 mg PO ONETIME ONE Stop: 02/05/18 19:48 Last Admin: 02/05/18 20:02 Dose: 324 mg Furosemide (Lasix) 40 mg IVPUSH NOW ONE Stop: 02/05/18 18:40 Last Admin: 02/05/18 18:51 Dose: 40 mg Furosemide (Lasix) 40 mg IVPUSH BID [facility] Last Admin: 02/05/18 22:01 Dose: Not Given Magnesium Sulfate 2 gm/ Premix 50 mls @ 50 mls/hr IV ONETIME ONE Stop: 02/07/18 10:49 Last Admin: 02/07/18 09:59 Dose: 50 mls/hr Magnesium Sulfate 2 gm/ Premix 50 mls @ 50 mls/hr IV ONETIME ONE Stop: 02/08/18 09:15 Last Admin: 02/08/18 08:42 Dose: 50 mls/hr Metoprolol Succinate (Toprol Xl) 12.5 mg PO ONETIME ONE Stop: 02/06/18 17:07 Last Admin: 02/06/18 17:24 Dose: 12.5 mg Metoprolol Succinate (Toprol Xl) 25 mg PO ONETIME ONE Stop: 02/07/18 12:00 Last Admin: 02/07/18 12:04 Dose: 25 mg Metoprolol Tartrate (Lopressor) 5 mg IVPUSH NOW STA Stop: 02/05/18 19:47 Last Admin: 02/05/18 20:03 Dose: 5 mg Nitroglycerin (Nitro-Bid 2%) 1 gm TOP ONETIME ONE Stop: 02/05/18 18:40 Last Admin: 02/05/18 18:47 Dose: 1 gm - Exam General: Alert, Oriented, Cooperative HEENT: Pupils Equal, Pupils Reactive, EOMI Neck: Supple, Trachea Midline, No JVD Lungs: Clear to Auscultation, Normal Respiratory Effort Cardiovascular: Regular Rate, Regular Rhythm, No Murmurs GI/Abdominal Exam: Normal Bowel Sounds, Soft, Non-Tender Back Exam: Normal Inspection, Full Range of Motion Extremities: Normal Inspection, Non-Tender, No Pedal Edema Skin: Warm, Dry, Intact Neurological: No New Focal Deficit Psy/Mental Status: Alert, Normal Affect - Problem List & Annotations (1) Systolic CHF SNOMED Code(s): 710220964 Code(s): I50.20 - UNSPECIFIED SYSTOLIC (CONGESTIVE) HEART FAILURE Status: Acute Current Visit: Yes (2) Alcohol abuse SNOMED Code(s): 94629154 Code(s): F10.10 - ALCOHOL ABUSE, UNCOMPLICATED Status: Acute Current Visit: Yes (3) Hypomagnesemia SNOMED Code(s): 207654002 Code(s): E83.42 - HYPOMAGNESEMIA Status: Acute Current Visit: Yes - Problem List Review Problem List Initiated/Reviewed/Updated: Yes - My Orders Last 24 Hours: My Active Orders 02/07/18 21:00 Lisinopril [Prinivil] 5 mg PO BEDTIME 02/08/18 09:00 Metoprolol Succinate [Toprol XL] 25 mg PO DAILY 02/08/18 11:42 Consult to Physical Therapy [PT Evaluation and Treatment] [CONS] Routine 02/08/18 13:58 Temazepam [Restoril] 15 mg PO BEDTIME PRN - Plan Plan:: 47 yo male admitted with CHF exacerbation and ETOH abuse CHF, improving - will continue lasix 40 mg iv q 12h , monitor I and O supplement electrolytes, cont.telemetry cont. lisinopril 5 mg po daily F/up Cardiology, PT eval. Hypomagnesiemia- supplement magnesium with magnesium sulphate 2 grams iv one dose ETOH abuse:will continue ativan prn CIWA protocol, thiamin and folic acid.
[2018-02-08] MEDS ORDERED: Metoprolol Succinate 25 MG Tab.ER PO ONE (15:15)
--- NOTE | 2018-02-08 18:33 | PCM.PN ---
- General Info Date of Service: 02/08/18 Admission Dx/Problem (Free Text): Admission Diagnosis/Problem Admission Diagnosis/Problem CHF, Congestive heart failure Subjective Update: The patient has felt better, looked less agitated, he walked [address], she denied SOB, leg swelling went down. Functional Status: Reports: Pain Controlled - Review of Systems General: Reports: Weakness HEENT: Reports: No Symptoms Pulmonary: Reports: Shortness of Breath Cardiovascular: Reports: No Symptoms Gastrointestinal: Reports: No Symptoms Genitourinary: Reports: No Symptoms Musculoskeletal: Reports: No Symptoms Skin: Reports: No Symptoms Neurological: Reports: No Symptoms - Patient Data Vitals - Most Recent: Last Vital Signs Temp 36.3 C 02/08/18 11:40 Pulse 93 02/08/18 15:50 Resp 16 02/08/18 11:40 BP 98/68 02/08/18 15:50 Pulse Ox 95 02/08/18 11:40 Weight - Most Recent: 106.322 kg I&O - Last 24 Hours: Intake & Output 02/08/18 02/08/18 02/08/18 06:59 14:59 22:59 Intake Total 311 19 6415 Output Total 2550 Balance 750 50 -960 Lab Results Last 24 Hours: Laboratory Results - last 24 hr 02/08/18 02/08/18 Range/Units 05:37 05:37 WBC 5.17 (4.0-11.0) K/uL RBC 3.96 L (4.50-5.90) M/uL Hgb 11.1 L (13.0-17.0) g/dL Hct 34.2 L (38.0-50.0) % MCV 86.4 (80.0-98.0) fL MCH 28.0 (27.0-32.0) pg MCHC 32.5 (31.0-37.0) g/dL RDW Std Deviation 54.4 (28.0-62.0) fl RDW Coeff of Pancho 18 H (11.0-15.0) % Plt Count 258 (150-400) K/uL MPV 8.60 (7.40-12.00) fL Add Manual Diff YES Neutrophils % (Manual) 69 (48.0-80.0) % Band Neutrophils % 2 % Lymphocytes % (Manual) 22 (16.0-40.0) % Monocytes % (Manual) 4 (0.0-15.0) % Eosinophils % (Manual) 2 (0.0-7.0) % Basophils % (Manual) 1 (0.0-1.5) % Nucleated RBC % 0.0 /100WBC Absolute Seg Neuts 3.6 (1.4-5.7) Band Neutrophils # 0.1 Lymphocytes # (Manual) 1.1 (0.6-2.4) Monocytes # (Manual) 0.2 (0.0-0.8) Eosinophils # (Manual) 0.1 (0.0-0.7) Basophils # (Manual) 0.1 (0.0-0.1) Nucleated RBCs # 0 K/uL Sodium 138 (136-148) mmol/L Potassium 3.7 (3.5-5.1) mmol/L Chloride 103 (98-107) mmol/L Carbon Dioxide 29.4 (21.0-32.0) mmol/L BUN 13 (7.0-18.0) mg/dL Creatinine 0.9 (0.8-1.3) mg/dL Est Cr Clr Drug Dosing 103.65 mL/min Estimated GFR (MDRD) > 60.0 ml/min Glucose 86 (74-106) mg/dL Calcium 7.8 L (8.5-10.1) mg/dL Magnesium 1.4 L (1.5-2.0) mg/dL Total Bilirubin 1.0 (0.2-1.0) mg/dL AST 35 (15-37) IU/L ALT 13 L (14-63) IU/L Alkaline Phosphatase 144 H (46-116) U/L Total Protein 7.8 (6.4-8.2) g/dL Albumin 2.2 L (3.4-5.0) g/dL Globulin 5.6 H (2.0-3.5) g/dL Albumin/Globulin Ratio 0.4 L (1.3-2.8) Med Orders - Current: Current Medications Acetaminophen (Tylenol) 650 mg PO Q6H PRN PRN Reason: Pain Last Admin: 02/06/18 04:48 Dose: 650 mg Enoxaparin Sodium (Lovenox) 40 mg SUBCUT Q24H [facility] Last Admin: 02/07/18 20:37 Dose: 40 mg Folic Acid (Folic Acid) 1 mg SUBCUT DAILY [facility] Last Admin: 02/08/18 08:42 Dose: 1 mg Furosemide (Lasix) 40 mg IVPUSH BID@0600,1400 [facility] Last Admin: 02/08/18 13:51 Dose: 40 mg Lisinopril (Prinivil) 5 mg PO BEDTIME [facility] Last Admin: 02/07/18 20:37 Dose: 5 mg Lorazepam (Ativan) 0 mg IVPUSH Q4H PRN; Protocol PRN Reason: CIWA score Last Admin: 02/07/18 01:13 Dose: 1 mg Metoprolol Succinate (Toprol Xl) 50 mg PO DAILY [facility] Ondansetron HCl (Zofran) 4 mg IVPUSH Q4H PRN PRN Reason: Nausea Last Admin: 02/06/18 04:48 Dose: 4 mg Sodium Chloride (Saline Flush) 10 ml FLUSH ASDIRECTED PRN PRN Reason: Keep Vein Open Sodium Chloride (Saline Flush) 2.5 ml FLUSH ASDIRECTED PRN PRN Reason: Keep Vein Open Temazepam (Restoril) 15 mg PO BEDTIME PRN PRN Reason: Insomnia Thiamine HCl (Vitamin B-1) 100 mg IV DAILY [facility] Last Admin: 02/08/18 08:42 Dose: 100 mg Tramadol HCl (Ultram) 50 mg PO Q6H PRN PRN Reason: Pain Discontinued Medications Aspirin (Aspirin) 324 mg PO ONETIME ONE Stop: 02/05/18 19:48 Last Admin: 02/05/18 20:02 Dose: 324 mg Furosemide (Lasix) 40 mg IVPUSH NOW ONE Stop: 02/05/18 18:40 Last Admin: 02/05/18 18:51 Dose: 40 mg Furosemide (Lasix) 40 mg IVPUSH BID [facility] Last Admin: 02/05/18 22:01 Dose: Not Given Magnesium Sulfate 2 gm/ Premix 50 mls @ 50 mls/hr IV ONETIME ONE Stop: 02/07/18 10:49 Last Admin: 02/07/18 09:59 Dose: 50 mls/hr Magnesium Sulfate 2 gm/ Premix 50 mls @ 50 mls/hr IV ONETIME ONE Stop: 02/08/18 09:15 Last Admin: 02/08/18 08:42 Dose: 50 mls/hr Metoprolol Succinate (Toprol Xl) 12.5 mg PO ONETIME ONE Stop: 02/06/18 17:07 Last Admin: 02/06/18 17:24 Dose: 12.5 mg Metoprolol Succinate (Toprol Xl) 25 mg PO ONETIME ONE Stop: 02/07/18 12:00 Last Admin: 02/07/18 12:04 Dose: 25 mg Metoprolol Succinate (Toprol Xl) 25 mg PO DAILY [facility] Last Admin: 02/08/18 10:05 Dose: 25 mg Metoprolol Succinate (Toprol Xl) 25 mg PO ONETIME ONE Stop: 02/08/18 15:16 Last Admin: 02/08/18 15:50 Dose: 25 mg Metoprolol Tartrate (Lopressor) 5 mg IVPUSH NOW STA Stop: 02/05/18 19:47 Last Admin: 02/05/18 20:03 Dose: 5 mg Nitroglycerin (Nitro-Bid 2%) 1 gm TOP ONETIME ONE Stop: 02/05/18 18:40 Last Admin: 02/05/18 18:47 Dose: 1 gm - Exam General: Alert, Oriented HEENT: Pupils Equal Neck: Supple Lungs: Rales Cardiovascular: Regular Rate, Regular Rhythm GI/Abdominal Exam: Normal Bowel Sounds (Male) Exam: No Hernia Back Exam: Normal Inspection Extremities: Pedal Edema EKG INTERPRETATION Rhythm: NSR Comparison: NA - No Prior EKG - Problem List Review Problem List Initiated/Reviewed/Updated: Yes - My Orders Last 24 Hours: My Active Orders 02/08/18 18:26 Abdomen Ltd [US] Routine 02/09/18 09:00 Metoprolol Succinate [Toprol XL] 50 mg PO DAILY - Plan Plan:: 47M ETOH with recent onset CMPY EF 15-20% with ETOH intoxication possible cirrhosis, with decompensated systolic HF 1. sCHF, patient has improved, recommended to restrict oral fluid to 2L, he seemed to tolerate torpol 25 daily, with lisinopril 5 in pm, will continue lasix 40 IV BID for now, will increase toprol to 50 daily, continue lisinopril 5 daily, he will need ischemic work up as outpt - increase toprol 50 daily - continue lisinpril 5 - lasiX 40 IV BID 2. possible cirrhosis
[2018-02-08] MEDS: Enoxaparin 40 MG/0.4 ML Syringe SUBCUT SCH (21:30)
[2018-02-08] MEDS: Lisinopril 5 MG Tab PO SCH (21:36)
[2018-02-09] MEDS: LORazepam 2 MG/ML SDV IVPUSH PRN (03:48)
[2018-02-09] MEDS: Furosemide 40 MG/4 ML VIAL IVPUSH SCH (06:27)
[2018-02-09] MEDS ORDERED: Magnesium Sulfate/Water 2 GM in Premix Bag 1 BAG IV ONE (06:29)
[2018-02-09 07:04] LABS: CHLORIDE,CL 103 mmol/L (98-107); SODIUM,NA 139 mmol/L (136-148)
[2018-02-09] MEDS: Folic Acid 50 MG/10 ML MDV SUBCUT SCH (08:13)
[2018-02-09] MEDS: Thiamine 200 MG/2 ML MDV IV SCH (08:15)
[2018-02-09] MEDS ORDERED: Metoprolol Succinate 50 MG Tab.ER PO SCH (09:00)
--- NOTE | 2018-02-09 09:20 | US ---
EXAMINATION: Right upper quadrant ultrasound HISTORY: Rule out cirrhosis COMPARISON: 12/05/2021 TECHNIQUE: Grayscale and color Doppler imaging obtained of the right upper quadrant. FINDINGS: Visualized pancreas appears normal. The liver is normal in contour and echogenicity without a focal hepatic mass. Common bile duct measures 2 mm. Status post cholecystectomy. Right kidney andrew ures 10.8 cm [id number] without evidence of hydronephrosis. IMPRESSION: 1. Grossly unremarkable right upper quadrant ultrasound. 2. The liver appears normal in echotexture without overt nodularity. 3. Small right pleural effusion.
--- NOTE | 2018-02-09 11:33 | PCM.DCSUM1 ---
Discharge Summary - Hospital Course Free Text/Narrative:: Patient 47 y old admitted on 02/05/18 with sob and anasarca. Patient admitted to ICU , he run out of his cardiac medications 1 month ago. His EF on the echo done in November 2017 was 15 %.Patient had cardiology consult and he was treated with lasix iv , labs and elecrolytes were monitored and replaced . Patient was diuresed about 8 kg of fluid. Patient saturating well at room air , he is stable for discharge. Patient will be discharged home with lasix 40 mg po BIUD , kcl 20 Benjamin po BID , magnesium oxide 400 mg po daily , metoprolol xl 50 mg po daily , lisinopril 5 mg po daily , patient to f/up with PCP and Cardiology. At admission patient was hypoxic.Patient discharged home with the diagnosis of anasarca, Acute on chronic systolic CHF. Patient was counseled to stop drinking.F/up with cardiac rehab. Us liver showed nl liver. - Discharge Data Discharge Date: 02/09/18 Discharge Disposition: Home, Home Health Agency Condition: Fair - Discharge Diagnosis/Problem(s) (1) Systolic CHF SNOMED Code(s): 969010852 ICD Code: I50.20 - UNSPECIFIED SYSTOLIC (CONGESTIVE) HEART FAILURE Status: Acute Qualifiers: Heart failure chronicity: acute on chronic Qualified Code(s): I50.23 - Acute on chronic systolic (congestive) heart failure (2) Alcohol abuse SNOMED Code(s): 91602827 ICD Code: F10.10 - ALCOHOL ABUSE, UNCOMPLICATED Status: Acute (3) Hypomagnesemia SNOMED Code(s): 564808226 ICD Code: E83.42 - HYPOMAGNESEMIA Status: Acute (4) Hepatic steatosis SNOMED Code(s): 632633685 ICD Code: K76.0 - FATTY (CHANGE OF) LIVER, NOT ELSEWHERE CLASSIFIED Status : Acute - Patient Summary/Data Consults: Consultations 02/06/18 09:06 Consult to Physician [CONS] Routine 02/08/18 11:42 Consult to Physical Therapy [PT Evaluation and Treatment] [CONS] Routine - Patient Instructions Diet: Heart Healthy Diet, Low Sodium Fluid Restriction: 2000 mL Activity: As Tolerated Driving: May Drive Today Showering/Bathing: May Shower - Discharge Plan Prescriptions/Med Rec: Cyanocobalamin/FA/Pyridoxine [Folic Acid-Vit B6-Vit B12] 1 each PO DAILY #90 tablet Furosemide 40 mg PO BID #60 tablet Lisinopril [Prinivil] 5 mg PO BEDTIME #30 tablet Magnesium Oxide 400 mg PO DAILY #30 tablet Metoprolol Succinate [Toprol XL 50mg] 50 mg PO DAILY #30 tab.er Potassium Chloride 20 meq PO BID #60 tablet.er Thiamine [Vitamin B-1] 100 mg PO BEDTIME 90 Days #90 tab Home Medications: Home Meds Folic Acid 1 mg PO DAILY 30 Days #30 tab 12/09/17 [Rx] Citalopram [Citalopram HBr] 20 mg PO DAILY 02/06/18 [History] Cyanocobalamin/FA/Pyridoxine [Folic Acid-Vit B6-Vit B12] 1 each PO DAILY #90 tablet 02/09/18 [Rx] Furosemide 40 mg PO BID #60 tablet 02/09/18 [Rx] Lisinopril [Prinivil] 5 mg PO BEDTIME #30 tablet 02/09/18 [Rx] Magnesium Oxide 400 mg PO DAILY #30 tablet 02/09/18 [Rx] Metoprolol Succinate [Toprol XL 50mg] 50 mg PO DAILY #30 tab.er 02/09/18 [Rx] Potassium Chloride 20 meq PO BID #60 tablet.er 02/09/18 [Rx] Thiamine [Vitamin B-1] 100 mg PO BEDTIME 90 Days #90 tab 02/09/18 [Rx] traMADol [Ultram] 50 mg PO Q6H PRN tablet 02/09/18 [Rx] Patient Handouts: Furosemide tablets, Metoprolol tablets, Sodium picosulfate; Magnesium oxide; Anhydrous citric acid oral solution, Potassium Citrate Extended -Release Tablets, Thiamine, Vitamin B1 tablets, Lisinopril tablets, Heart Failure, [id number], Cyanocobalamin, Vitamin B12 nasal gel Referrals: Jl Silver MD [Physician] - 02/16/18 10:00 am Romeo Persaud MD [Resident] - 02/22/18 2:30 pm - General Info Date of Service: 02/09/18 Admission Dx/Problem (Free Text: Admission Diagnosis/Problem Admission Diagnosis/Problem CHF, Congestive heart failure - Review of Systems General: Reports: No Symptoms HEENT: Reports: No Symptoms Pulmonary: Reports: No Symptoms Cardiovascular: Reports: Dyspnea on Exertion Gastrointestinal: Reports: No Symptoms Genitourinary: Reports: No Symptoms Musculoskeletal: Reports: No Symptoms Skin: Reports: No Symptoms Neurological: Reports: No Symptoms - Patient Data Vitals - Most Recent: Last Vital Signs Temp 96.8 F 02/09/18 08:00 Pulse 89 02/09/18 08:12 Resp 18 02/09/18 08:00 BP 115/87 02/09/18 08:12 Pulse Ox 96 02/09/18 08:00 Weight - Most Recent: 230 lb 9.6 oz I&O - Last 24 hours: Intake & Output 02/08/18 02/09/18 02/09/18 22:59 06:59 14:59 Intake Total 1590 700 50 Output Total 2550 850 Balance -960 -150 50 Lab Results - Last 24 hrs: Laboratory Results - last 24 hr 02/09/18 02/09/18 Range/Units 06:35 06:35 WBC 5.26 (4.0-11.0) K/uL RBC 4.07 L (4.50-5.90) M/uL Hgb 11.5 L (13.0-17.0) g/dL Hct 34.9 L (38.0-50.0) % MCV 85.7 (80.0-98.0) fL MCH 28.3 (27.0-32.0) pg MCHC 33.0 (31.0-37.0) g/dL RDW Std Deviation 54.0 (28.0-62.0) fl RDW Coeff of Pancho 17 H (11.0-15.0) % Plt Count 266 (150-400) K/uL MPV 8.60 (7.40-12.00) fL Neut % (Auto) 48.8 (48.0-80.0) % Lymph % (Auto) 36.3 (16.0-40.0) % [place] % (Auto) 13.7 (0.0-15.0) % Eos % (Auto) 0.6 (0.0-7.0) % Baso % (Auto) 0.6 (0.0-1.5) % Neut # (Auto) 2.6 (1.4-5.7) K/uL Lymph # (Auto) 1.9 (0.6-2.4) K/uL [place] # (Auto) 0.7 (0.0-0.8) K/uL Eos # (Auto) 0.0 (0.0-0.7) K/uL Baso # (Auto) 0.0 (0.0-0.1) K/uL Nucleated RBC % 0.0 /100WBC Nucleated RBCs # 0 K/uL Sodium 139 (136-148) mmol/L Potassium 3.9 (3.5-5.1) mmol/L Chloride 103 (98-107) mmol/L Carbon Dioxide 28.2 (21.0-32.0) mmol/L BUN 18 (7.0-18.0) mg/dL Creatinine 1.0 (0.8-1.3) mg/dL Est Cr Clr Drug Dosing 93.28 mL/min Estimated GFR (MDRD) > 60.0 ml/min Glucose 84 (74-106) mg/dL Calcium 7.9 L (8.5-10.1) mg/dL Magnesium 1.5 (1.5-2.0) mg/dL Med Orders - Current: Current Medications Acetaminophen (Tylenol) 650 mg PO Q6H PRN PRN Reason: Pain Last Admin: 02/06/18 04:48 Dose: 650 mg Enoxaparin Sodium (Lovenox) 40 mg SUBCUT Q24H [facility] Last Admin: 02/08/18 21:30 Dose: 40 mg Folic Acid (Folic Acid) 1 mg SUBCUT DAILY [facility] Last Admin: 02/09/18 08:13 Dose: 1 mg Furosemide (Lasix) 40 mg IVPUSH BID@0600,1400 [facility] Last Admin: 02/09/18 06:27 Dose: 40 mg Lisinopril (Prinivil) 5 mg PO BEDTIME [facility] Last Admin: 02/08/18 21:36 Dose: Not Given Lorazepam (Ativan) 0 mg IVPUSH Q4H PRN; Protocol PRN Reason: CIWA score Last Admin: 02/09/18 03:48 Dose: 1 mg Metoprolol Succinate (Toprol Xl) 50 mg PO DAILY [facility] Last Admin: 02/09/18 08:12 Dose: 50 mg Ondansetron HCl (Zofran) 4 mg IVPUSH Q4H PRN PRN Reason: Nausea Last Admin: 02/06/18 04:48 Dose: 4 mg Sodium Chloride (Saline Flush) 10 ml FLUSH ASDIRECTED PRN PRN Reason: Keep Vein Open Sodium Chloride (Saline Flush) 2.5 ml FLUSH ASDIRECTED PRN PRN Reason: Keep Vein Open Temazepam (Restoril) 15 mg PO BEDTIME PRN PRN Reason: Insomnia Last Admin: 02/08/18 21:26 Dose: 15 mg Thiamine HCl (Vitamin B-1) 100 mg IV DAILY [facility] Last Admin: 02/09/18 08:15 Dose: 100 mg Tramadol HCl (Ultram) 50 mg PO Q6H PRN PRN Reason: Pain Discontinued Medications Aspirin (Aspirin) 324 mg PO ONETIME ONE Stop: 02/05/18 19:48 Last Admin: 02/05/18 20:02 Dose: 324 mg Furosemide (Lasix) 40 mg IVPUSH NOW ONE Stop: 02/05/18 18:40 Last Admin: 02/05/18 18:51 Dose: 40 mg Furosemide (Lasix) 40 mg IVPUSH BID [facility] Last Admin: 02/05/18 22:01 Dose: Not Given Magnesium Sulfate 2 gm/ Premix 50 mls @ 50 mls/hr IV ONETIME ONE Stop: 02/07/18 10:49 Last Admin: 02/07/18 09:59 Dose: 50 mls/hr Magnesium Sulfate 2 gm/ Premix 50 mls @ 50 mls/hr IV ONETIME ONE Stop: 02/08/18 09:15 Last Admin: 02/08/18 08:42 Dose: 50 mls/hr Magnesium Sulfate 2 gm/ Premix 50 mls @ 50 mls/hr IV ONETIME ONE Stop: 02/09/18 07:28 Last Admin: 02/09/18 08:07 Dose: 50 mls/hr Metoprolol Succinate (Toprol Xl) 12.5 mg PO ONETIME ONE Stop: 02/06/18 17:07 Last Admin: 02/06/18 17:24 Dose: 12.5 mg Metoprolol Succinate (Toprol Xl) 25 mg PO ONETIME ONE Stop: 02/07/18 12:00 Last Admin: 02/07/18 12:04 Dose: 25 mg Metoprolol Succinate (Toprol Xl) 25 mg PO DAILY [facility] Last Admin: 02/08/18 10:05 Dose: 25 mg Metoprolol Succinate (Toprol Xl) 25 mg PO ONETIME ONE Stop: 02/08/18 15:16 Last Admin: 02/08/18 15:50 Dose: 25 mg Metoprolol Tartrate (Lopressor) 5 mg IVPUSH NOW STA Stop: 02/05/18 19:47 Last Admin: 02/05/18 20:03 Dose: 5 mg Nitroglycerin (Nitro-Bid 2%) 1 gm TOP ONETIME ONE Stop: 02/05/18 18:40 Last Admin: 02/05/18 18:47 Dose: 1 gm - Exam General: Reports: Alert, Oriented HEENT: Reports: Pupils Equal, Pupils Reactive Neck: Reports: Supple, Trachea Midline, JVD Lungs: Reports: Clear to Auscultation Cardiovascular: Reports: Regular Rate, Regular Rhythm, No Murmurs GI/Abdominal Exam: Normal Bowel Sounds, Soft, Non-Tender (Male) Exam: No Hernia Rectal (Males) Exam: Normal Exam Back Exam: Reports: Normal Inspection Skin: Reports: Warm Psy/Mental Status: Reports: Alert
== END 2018-02-09 12:20 | disposition home health service (06) | DRG 292 ==
LOC: MW.ED 18:27 → MW.ICU 20:43 → MW.MS 02-07 19:00
PROVIDERS: ADMIT Internal Medicine; ATTEND Internal Medicine
DX: I11.0 Hypertensive heart disease with heart failure (principal); F10.239 Alcohol dependence with withdrawal, unspecified; I24.8 Other forms of acute ischemic heart disease; I50.23 Acute on chronic systolic (congestive) heart failure; Z91.14 Patient's other noncompliance with medication regimen; E83.42 Hypomagnesemia; F41.9 Anxiety disorder, unspecified; F32.9 Major depressive disorder, single episode, unspecified; K70.30 Alcoholic cirrhosis of liver without ascites; I42.6 Alcoholic cardiomyopathy; K76.1 Chronic passive congestion of liver; F10.229 Alcohol dependence with intoxication, unspecified; Z79.899 Other long term (current) drug therapy; Z88.8 Allergy status to other drugs, medicaments and biological substances; Z90.49 Acquired absence of other specified parts of digestive tract
CPT/HCPCS: 36415; 36600; 71045; 71045-26; 76705; 76705-26; 80048; 80053; 82803; 83735; 83880; 84484; 85025; 85027; 85610; 93005; 93971-26-LT; 93971-LT; 96374; 96375; 97161-GP; 99285-25; A9270-GY; G0480; J1650; J1940; J2060; J2405; J3411; J3475

== ENCOUNTER 2018-02-12 00:53 | Inpatient (IN) | payer MEDICAID ==
[2018-02-12] MEDS ORDERED: Morphine 4 MG/ML Syringe IVPUSH ONE (00:56)
[2018-02-12] MEDS ORDERED: Sodium Chloride 0.9% 1,000 ML IV ONE (00:56)
[2018-02-12] MEDS ORDERED: Albuterol/Ipratropium 3.0-0.5 MG/3 ML Neb Soln NEB ONE (01:05)
[2018-02-12] MEDS ORDERED: methylPREDNISolone Sodium Succinate 125 MG/2 ML SDV IVPUSH ONE (01:05)
[2018-02-12] MEDS ORDERED: Furosemide 40 MG/4 ML VIAL IVPUSH ONE ×2 (01:06→10:56)
[2018-02-12 02:01] LABS: CHLORIDE,CL 95 mmol/L (98-107); SODIUM,NA 128 mmol/L (136-148)
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
[2018-02-12] MEDS ORDERED: Morphine 4 MG/ML Syringe IVPUSH PRN (04:06)
[2018-02-12] MEDS ORDERED: Pantoprazole 40 MG Tab.CR PO SCH (07:30)
[2018-02-12 07:53] LABS: CHLORIDE,CL 96 mmol/L (98-107); SODIUM,NA 132 mmol/L (136-148)
[2018-02-12] MEDS: Furosemide 40 MG/4 ML VIAL IVPUSH SCH ×2 (08:16→20:00)
[2018-02-12] MEDS: LORazepam 2 MG/ML SDV IVPUSH PRN ×2 (08:30→12:45)
[2018-02-12] MEDS: Ondansetron 4 MG/2 ML SDV IVPUSH PRN ×3 (08:36→20:00)
[2018-02-12] MEDS ORDERED: Magnesium Sulfate/Water 4 GM in Premix Bag 1 BAG IV ONE (10:32)
[2018-02-12] MEDS ORDERED: Folic Acid 1 MG Tab PO SCH (10:45)
[2018-02-12] MEDS ORDERED: atorvaSTATin 40 MG Tab PO ONE (10:57)
[2018-02-12] MEDS ORDERED: Nitroglycerin 2% Oint 1 GM UD Packet TOP PRN (10:59)
[2018-02-12] MEDS ORDERED: Aspirin 300 MG Supp RECTAL ONE (11:00)
[2018-02-12] MEDS: Potassium Chloride 20 MEQ Tab.ER PO SCH ×2 (11:04→20:01)
[2018-02-12] MEDS: Citalopram 20 MG Tab PO SCH (11:04)
[2018-02-12] MEDS: Pantoprazole 40 MG Vial IVPUSH SCH (11:25)
[2018-02-12] MEDS: Aspirin 81 MG Tab.Chew PO SCH (12:45)
[2018-02-12] MEDS ORDERED: Aspirin 81 MG Tab.EC PO ONE (14:00)
[2018-02-12] MEDS ORDERED: Acetaminophen 325 MG Tab PO PRN (18:45)
[2018-02-12] MEDS: Folic Acid 1 MG Tab PO SCH (20:01)
[2018-02-12] MEDS: Thiamine 100 MG Tab PO SCH (20:01)
[2018-02-12] MEDS ORDERED: Lisinopril 5 MG Tab PO SCH (21:00)
[2018-02-13] MEDS: Temazepam 15 MG Cap PO PRN (00:09)
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
--- NOTE | 2018-02-13 08:52 | PCM.PN ---
- General Info Date of Service: 02/12/18 Admission Dx/Problem (Free Text): Admission Diagnosis/Problem Admission Diagnosis/Problem CHF, Congestive heart failure Subjective Update: Patient diuresed about 6 L of fluid , felling better , still has edema of the lower exteremities . Seen by simulation specialist today - Review of Systems General: Reports: No Symptoms HEENT: Reports: No Symptoms Pulmonary: Reports: No Symptoms, Shortness of Breath, Cough. Denies: Sputum Cardiovascular: Reports: Dyspnea on Exertion, Orthopnea, Edema Gastrointestinal: Reports: No Symptoms Genitourinary: Reports: No Symptoms Musculoskeletal: Reports: No Symptoms Skin: Reports: No Symptoms Neurological: Reports: No Symptoms Psychiatric: Reports: No Symptoms - Patient Data Vitals - Most Recent: Last Vital Signs Temp 98.6 F 02/13/18 08:30 Pulse 90 02/13/18 08:30 Resp 16 02/13/18 08:30 BP 134/75 02/13/18 04:00 Pulse Ox 96 02/13/18 08:30 Weight - Most Recent: 236 lb 14.4 oz I&O - Last 24 Hours: Intake & Output 02/12/18 02/13/18 02/13/18 22:59 06:59 14:59 Intake Total 736 250 Output Total 2850 1550 Balance -2114 -1300 Lab Results Last 24 Hours: Laboratory Results - last 24 hr 02/12/18 02/12/18 02/12/18 Range/Units 11:18 13:14 16:55 Troponin I 0.250 H* 0.239 H* 0.247 H* (0.000-0.056) ng/mL 02/12/18 Range/Units 23:12 Troponin I 0.261 H* (0.000-0.056) ng/mL Med Orders - Current: Current Medications Acetaminophen (Tylenol) 650 mg PO Q6H PRN PRN Reason: Headache Aspirin (Aspirin) 162 mg PO DAILY [facility] Last Admin: 02/12/18 12:45 Dose: 162 mg Citalopram Hydrobromide (Celexa) 20 mg PO DAILY [facility] Last Admin: 02/12/18 11:04 Dose: 20 mg Folic Acid (Folic Acid) 1 mg PO BEDTIME [facility] Last Admin: 02/12/18 20:01 Dose: 1 mg Furosemide (Lasix) 40 mg IVPUSH BID [facility] Last Admin: 02/12/18 20:00 Dose: 40 mg Lisinopril (Prinivil) 5 mg PO BEDTIME [facility] Last Admin: 02/12/18 20:01 Dose: 5 mg Lorazepam (Ativan) 0 mg IVPUSH Q4H PRN; Protocol PRN Reason: Other Last Admin: 02/12/18 12:45 Dose: 1 mg Morphine Sulfate (Morphine) 2 mg IVPUSH Q2H PRN PRN Reason: Pain Nitroglycerin (Nitro-Bid 2%) 1 gm TOP Q6H PRN PRN Reason: Chest Pain Ondansetron HCl (Zofran) 4 mg IVPUSH Q4H PRN PRN Reason: Nausea Last Admin: 02/12/18 20:00 Dose: 4 mg Pantoprazole Sodium (Protonix Iv) 40 mg IVPUSH DAILY [facility] Last Admin: 02/12/18 11:25 Dose: 40 mg Potassium Chloride (Klor-Con M20) 20 meq PO BID [facility] Last Admin: 02/12/18 20:01 Dose: 20 meq Temazepam (Restoril) 15 mg PO BEDTIME PRN PRN Reason: Insomnia Last Admin: 02/13/18 00:09 Dose: 15 mg Thiamine HCl (Vitamin B-1) 100 mg PO BEDTIME [facility] Last Admin: 02/12/18 20:01 Dose: 100 mg Discontinued Medications Albuterol/Ipratropium (Duoneb 3.0-0.5 Mg/3 Ml) 3 ml NEB ONETIME ONE Stop: 02/12/18 01:06 Last Admin: 02/12/18 01:16 Dose: 3 ml Aspirin (Aspirin) 300 mg RECTAL ONETIME ONE Stop: 02/12/18 11:01 Last Admin: 02/12/18 12:13 Dose: Not Given Aspirin (Halfprin) 162 mg PO ONETIME ONE Stop: 02/12/18 14:01 Last Admin: 02/12/18 15:14 Dose: 162 mg Atorvastatin Calcium (Lipitor) 80 mg PO ONETIME ONE Stop: 02/12/18 10:58 Last Admin: 02/12/18 11:11 Dose: 80 mg Folic Acid (Folic Acid) 1 mg PO DAILY [facility] Last Admin: 02/12/18 11:07 Dose: Not Given Furosemide (Lasix) 40 mg IVPUSH NOW ONE Stop: 02/12/18 01:07 Last Admin: 02/12/18 01:15 Dose: 40 mg Furosemide (Lasix) 40 mg IVPUSH NOW ONE Stop: 02/12/18 10:57 Last Admin: 02/12/18 11:14 Dose: 40 mg Sodium Chloride (Normal Saline) 1,000 mls @ 999 mls/hr IV STAT ONE Stop: 02/12/18 01:56 Last Admin: 02/12/18 01:15 Dose: 999 mls/hr Magnesium Sulfate 4 gm/ Premix 100 mls @ 50 mls/hr IV ONETIME ONE Stop: 02/12/18 12:31 Last Admin: 02/12/18 11:00 Dose: 50 mls/hr Methylprednisolone Sodium Succinate (Solu-Medrol) 125 mg IVPUSH ONETIME ONE Stop: 02/12/18 01:06 Last Admin: 02/12/18 01:15 Dose: 125 mg Morphine Sulfate (Morphine) 2 mg IVPUSH ONETIME ONE Stop: 02/12/18 00:57 Last Admin: 02/12/18 01:16 Dose: 2 mg Pantoprazole Sodium (Protonix) 40 mg PO ACBREAKFAST PRANAY Last Admin: 02/12/18 07:02 Dose: 40 mg - Exam General: Alert, Oriented HEENT: Pupils Equal Neck: Supple, Trachea Midline, No Thyromegaly, JVD Lungs: Clear to Auscultation, Normal Respiratory Effort, Decreased Breath Sounds , Crackles Cardiovascular: Regular Rate, Regular Rhythm, No Murmurs, Gallops GI/Abdominal Exam: Normal Bowel Sounds, Soft, Non-Tender, No Organomegaly, No Mass, Distended Extremities: Normal Inspection Skin: Warm, Dry, Intact, Cool Wound/Incisions: Healing Well Neurological: No New Focal Deficit Psy/Mental Status: Alert, Normal Affect, Normal Mood - Problem List & Annotations (1) Acute exacerbation of congestive heart failure SNOMED Code(s): 31078752 Code(s): I50.9 - HEART FAILURE, UNSPECIFIED Status: Acute Current Visit: Yes (2) Anasarca SNOMED Code(s): 732789053, 358091636 Code(s): R60.1 - GENERALIZED EDEMA Status: Acute Priority: High Current Visit: Yes (3) Elevated troponin SNOMED Code(s): 427688760, 129533465, 207220460 Code(s): R74.8 - ABNORMAL LEVELS OF OTHER SERUM ENZYMES Status: Acute Current Visit: No (4) Alcohol intoxication SNOMED Code(s): 35615064 Code(s): F10.929 - ALCOHOL USE, UNSPECIFIED WITH INTOXICATION, UNSPECIFIED Status: Acute Current Visit: Yes (5) Chest pain, rule out acute myocardial infarction SNOMED Code(s): 16440540 Code(s): R07.9 - CHEST PAIN, UNSPECIFIED Status: Acute Current Visit: Yes - Problem List Review Problem List Initiated/Reviewed/Updated: Yes - My Orders Last 24 Hours: My Active Orders 02/12/18 08:32 Ondansetron [Zofran] 4 mg IVPUSH Q4H PRN 02/12/18 09:00 Furosemide [Lasix] 40 mg IVPUSH BID 02/12/18 10:45 Citalopram [Celexa] 20 mg PO DAILY Potassium Chloride [Klor-Con M20] 20 meq PO BID 02/12/18 10:59 Nitroglycerin [Nitro-Bid 2%] 1 gm TOP Q6H PRN 02/12/18 11:00 Pantoprazole [ProTONIX IV] 40 mg IVPUSH DAILY 02/12/18 12:30 Aspirin 162 mg PO DAILY 02/12/18 18:45 Acetaminophen [Tylenol] 650 mg PO Q6H PRN 02/12/18 21:00 Folic Acid 1 mg PO BEDTIME Lisinopril [Prinivil] 5 mg PO BEDTIME Thiamine [Vitamin B-1] 100 mg PO BEDTIME 02/12/18 23:10 Temazepam [Restoril] 15 mg PO BEDTIME PRN 02/13/18 08:50 CXR [Chest 1V Frontal] [CR] Routine - Plan Plan:: CHF exacerbation: Lasix 40 mg iv q 12 h ,increase lisinopril to 10 mg po at bedtime , monitor I and O water restriction to 1000 cc , Metoprolol xl 50 mg po daily. Chest pain r/o acs - troponins relatively stable , [facility] , his troponins are due to his heart failure Alcohol intoxication : [facility] protocol DVT prof : heparin sq Chronically elevated troponins - secondary to heart failure Dvt prof - heparin sq
[2018-02-13] MEDS: Aspirin 81 MG Tab.Chew PO SCH (08:57)
[2018-02-13] MEDS: Citalopram 20 MG Tab PO SCH (08:58)
[2018-02-13] MEDS: Potassium Chloride 20 MEQ Tab.ER PO SCH ×2 (08:59→20:47)
[2018-02-13] MEDS: Furosemide 40 MG/4 ML VIAL IVPUSH SCH ×2 (09:24→20:53)
[2018-02-13] MEDS: Pantoprazole 40 MG Vial IVPUSH SCH (09:24)
--- NOTE | 2018-02-13 09:30 | CR ---
EXAMINATION: Portable chest radiograph. HISTORY: Pleural effusion. FINDINGS: The trachea is midline. The cardiomediastinal silhouette is stable. The heart is borderline in size. Persistent small right pleural effusion with adjacent atelectasis and/or infiltrate. Osseous structures appear unremarkable. IMPRESSION: Persistent right basilar pleural effusion with adjacent atelectasis and/or infiltrate.
[2018-02-13] MEDS ORDERED: Magnesium Sulfate/Water 2 GM in Premix Bag 1 BAG IV ONE (12:41)
[2018-02-13] MEDS: Metoprolol Succinate 50 MG Tab.ER PO SCH (13:10)
[2018-02-13] MEDS: LORazepam 2 MG/ML SDV IVPUSH PRN ×2 (14:02→22:09)
--- NOTE | 2018-02-13 14:09 | CR ---
EXAM DATE: 02/12/18 PATIENT'S AGE: 47 Patient: MONICA ALDRICH Facility: [place], [place] Site . Site : 1970 Study: XRay Chest [id number]/22/2018 1:29:00 AM Ordering Physician: Doctor Ferris Final Report: INDICATION: Shortness of breath TECHNIQUE: Chest 1 view. COMPARISON: 02/06/2018 FINDINGS: Cardiovascular and mediastinum: Heart size and vasculature are normal in caliber and appearance. Mediastinum is within normal limits. Lungs and pleural space: Small right pleural effusion with adjacent atelectasis. No definitive infiltrates. Bones and soft tissues: No significant findings. IMPRESSION: Stable small right pleural effusion with adjacent atelectasis. Dictated by Luc Chawla MD @ 02/12/2018 1:40:04 AM Dictated by: Luc Chawla MD @ 02/12/2018 01:40:07 (Electronic Signature) Report Signed by Proxy. MARITA
[2018-02-13] MEDS ORDERED: Furosemide 40 MG/4 ML VIAL IVPUSH ONE (16:21)
[2018-02-13] MEDS: Thiamine 100 MG Tab PO SCH (20:47)
[2018-02-13] MEDS: Folic Acid 1 MG Tab PO SCH (20:48)
[2018-02-13] MEDS: Lisinopril 5 MG Tab PO SCH (20:48)
[2018-02-14 07:03] LABS: CHLORIDE,CL 104 mmol/L (98-107); SODIUM,NA 140 mmol/L (136-148)
[2018-02-14] MEDS: Metoprolol Succinate 50 MG Tab.ER PO SCH (08:11)
[2018-02-14] MEDS: Citalopram 20 MG Tab PO SCH (08:12)
[2018-02-14] MEDS: Potassium Chloride 20 MEQ Tab.ER PO SCH ×2 (08:12→20:39)
[2018-02-14] MEDS: Pantoprazole 40 MG Vial IVPUSH SCH (08:13)
[2018-02-14] MEDS: Furosemide 40 MG/4 ML VIAL IVPUSH SCH (08:13)
[2018-02-14] MEDS ORDERED: Metoprolol Succinate 50 MG Tab.ER PO SCH (08:15)
[2018-02-14] MEDS ORDERED: Metoprolol Succinate 25 MG Tab.ER PO ONE (09:00)
--- NOTE | 2018-02-14 09:51 | CONS ---
DATE OF CONSULTATION: DATE OF : 1970 PRIMARY CARE PHYSICIAN: None PCP REASON FOR CONSULTATION: Decompensated heart failure. HISTORY OF PRESENT ILLNESS: This is a 47-year-old male, who had a history of alcoholic abuse and tobacco abuse in the past, history of heart failure, admitted recently and discharged from the hospital two days ago prior to this admission for decompensated LV systolic heart failure. He came back here because of increasing shortness of breath at the same day today. He also notices increasing leg swelling as well. When he got discharged from the hospital, he is supposed to take a beta-lovely as well as furosemide and MANUELITO inhibitor; however, he did not have enough money to buy the medication, so he did not take any of those medications and also he started drinking again. When he came to the emergency room, he was alcoholic intoxicated. Over the weekend, he was diuresed with IV Lasix 40 mg twice a day. He is making a good urine output and Toprol-XL was started with 50 mg the dose that he was on before from the last admission as well as the lisinopril. He stated that after diuresis, he feels much better and he has walked around for three wraps and he stated that his breathing is better, however, is not back to normal yet. CURRENT MEDICATIONS: Including Toprol-XL 50 mg once a day, Lasix 40 mg IV twice a day, and lisinopril 5 mg once a day. PAST MEDICAL HISTORY: Including history of hypertension and history of heart failure. PAST SURGICAL HISTORY: History of hernia repair and cholecystectomy. SOCIAL HISTORY: He was a smoker before; however, he stops smoking already; however, he is still drinking every day even though from the last admission and he was intoxicated in the emergency room. No drug use. FAMILY HISTORY: Reported to have a CAD in his parent. ALLERGIES: He is allergic to ibuprofen. REVIEW OF SYSTEMS: It has been negative, except as indicated in HPI. PHYSICAL EXAMINATION: VITAL SIGNS: The current blood pressure is 108/76, heart rate of 80, temperature 36.2, O2 saturation 95% on room air, and respiration 16. HEENT: Not pale. No jaundice. JVD positive. HEART: Normal S1 and S2. No murmur. LUNGS: Clear. ABDOMEN: Soft, mildly distended. Bowel sounds present. Not tender. EXTREMITIES: Legs, 1+ bilaterally. LABORATORY INVESTIGATION: CBC showed WBC 5, hematocrit of 35, hemoglobin of 11, and platelet is 299. Sodium 140, potassium 3.9, chloride 104, bicarb 31, BUN 19, creatinine 1.2. Troponin remained elevated at 0.26, however, is not peaking and it seemed to be similar level. Albumin is 2.4. EKG showed sinus rhythm. EKG on 02/13/2018, shows sinus rhythm with ST abnormalities in V4 to V6, QTc 479, QRS duration 102, MO interval 158. Echocardiogram in November 2017 showed ejection fraction 15% to 20%, global severe hypokinesis and mild MR, moderate TR and severe biatrial dilatation. At this time, BNP was elevated at 2300; however, the level was lower than before, which was 3000. ASSESSMENT AND PLAN: This is a 47-year-old male, who had a history of alcoholic abuse and currently with decompensated heart failure, persistent right pleural effusion, left ventricular systolic dysfunction, ejection fraction of 15% to 20% with alcoholic intoxication, here due to medication noncompliant, decompensated LV systolic dysfunction, congestive heart failure. He has been diuresed very well. He made a good urine output. We will continue the Lasix 40 mg IV twice a day for now and I will continue for Toprol- XL up to 50 mg once a day as well as we will increase the lisinopril to 5 mg once a day. He should stop drinking completely. I think his cardiomyopathy is most likely related to his alcohol, but he also needs ischemic workup. This can be done as an outpatient and it seemed that the patient will be going back to his hometown, which is [facility] and his troponin elevation most likely from demand ischemia from heart failure. The ultrasound of abdomen did not show the evidence of the liver cirrhosis and the liver seemed to be normal from the ultrasound of the abdomen. ROBBIN / NATI /[id number] MARITA
[2018-02-14] MEDS ORDERED: Furosemide 40 MG/4 ML VIAL IVPUSH SCH (14:00)
[2018-02-14] MEDS ORDERED: Warfarin 5 MG Tab PO SCH ×2 (14:07→18:00)
[2018-02-14] MEDS: Enoxaparin 100 MG/1 ML Syringe SUBCUT SCH ×2 (14:17→22:34)
[2018-02-14] MEDS ORDERED: Magnesium Sulfate/Water 4 GM in Premix Bag 1 BAG IV ONE (14:48)
--- NOTE | 2018-02-14 15:41 | PCM.PN ---
- Patient Data Vitals - Most Recent: Last Vital Signs Temp 97.3 F 02/14/18 12:00 Pulse 82 02/14/18 12:00 Resp 20 02/14/18 12:00 BP 103/67 02/14/18 12:00 Pulse Ox 93 L 02/14/18 12:00 Weight - Most Recent: 226 lb 3.2 oz I&O - Last 24 Hours: Intake & Output 02/14/18 02/14/18 02/14/18 06:59 14:59 22:59 Intake Total 500 100 Output Total 2750 Balance -2250 100 Lab Results Last 24 Hours: Laboratory Results - last 24 hr 02/13/18 02/13/18 02/14/18 Range/Units 16:21 16:21 05:58 WBC 5.76 (4.0-11.0) K/uL RBC 3.94 L (4.50-5.90) M/uL Hgb 11.1 L (13.0-17.0) g/dL Hct 34.3 L (38.0-50.0) % MCV 87.1 (80.0-98.0) fL MCH 28.2 (27.0-32.0) pg MCHC 32.4 (31.0-37.0) g/dL RDW Std Deviation 55.4 (28.0-62.0) fl RDW Coeff of Pancho 18 H (11.0-15.0) % Plt Count 296 (150-400) K/uL MPV 8.70 (7.40-12.00) fL Nucleated RBC % /100WBC Nucleated RBCs # K/uL INR Sodium 138 140 (136-148) mmol/L Potassium 4.1 3.9 (3.5-5.1) mmol/L Chloride 103 104 (98-107) mmol/L Carbon Dioxide 28.6 31.4 (21.0-32.0) mmol/L BUN 18 19 H (7.0-18.0) mg/dL Creatinine 1.3 1.2 (0.8-1.3) mg/dL Est Cr Clr Drug Dosing 71.52 77.48 mL/min Estimated GFR (MDRD) 59.7 > 60.0 ml/min Glucose 115 H 91 (74-106) mg/dL Hemoglobin A1c (4.5-6.2) % Calcium 7.9 L 7.8 L (8.5-10.1) mg/dL Magnesium 2.0 (1.5-2.0) mg/dL Total Bilirubin 1.1 H (0.2-1.0) mg/dL AST 52 H (15-37) IU/L ALT 20 (14-63) IU/L Alkaline Phosphatase 164 H (46-116) U/L Total Protein 7.7 (6.4-8.2) g/dL Albumin 2.4 L (3.4-5.0) g/dL Globulin 5.3 H (2.0-3.5) g/dL Albumin/Globulin Ratio 0.5 L (1.3-2.8) Triglycerides (0-200) mg/dL Cholesterol (50-200) mg/dL LDL Cholesterol, Calc (60-180) mg/dL VLDL Cholesterol (5-55) mg/dL HDL Cholesterol (40-60) mg/dL Cholesterol/HDL Ratio (3.3-6.0) 02/14/18 02/14/18 02/14/18 Range/Units 05:58 05:58 05:58 WBC 5.49 (4.0-11.0) K/uL RBC 4.04 L (4.50-5.90) M/uL Hgb 11.3 L (13.0-17.0) g/dL Hct 35.2 L (38.0-50.0) % MCV 87.1 (80.0-98.0) fL MCH 28.0 (27.0-32.0) pg MCHC 32.1 (31.0-37.0) g/dL RDW Std Deviation 57.3 (28.0-62.0) fl RDW Coeff of Pancho 18 H (11.0-15.0) % Plt Count 299 (150-400) K/uL MPV 8.90 (7.40-12.00) fL Nucleated RBC % 0.0 /100WBC Nucleated RBCs # 0 K/uL INR Sodium (136-148) mmol/L Potassium (3.5-5.1) mmol/L Chloride (98-107) mmol/L Carbon Dioxide (21.0-32.0) mmol/L BUN (7.0-18.0) mg/dL Creatinine (0.8-1.3) mg/dL Est Cr Clr Drug Dosing mL/min Estimated GFR (MDRD) ml/min Glucose (74-106) mg/dL Hemoglobin A1c 7.4 H (4.5-6.2) % Calcium (8.5-10.1) mg/dL Magnesium (1.5-2.0) mg/dL Total Bilirubin (0.2-1.0) mg/dL AST (15-37) IU/L ALT (14-63) IU/L Alkaline Phosphatase (46-116) U/L Total Protein (6.4-8.2) g/dL Albumin (3.4-5.0) g/dL Globulin (2.0-3.5) g/dL Albumin/Globulin Ratio (1.3-2.8) Triglycerides 73 (0-200) mg/dL Cholesterol 85 (50-200) mg/dL LDL Cholesterol, Calc 40 L (60-180) mg/dL VLDL Cholesterol 14 (5-55) mg/dL HDL Cholesterol 30 L (40-60) mg/dL Cholesterol/HDL Ratio 2.8 L (3.3-6.0) //18 Range/Units 14:21 WBC (4.0-11.0) K/uL RBC (4.50-5.90) M/uL Hgb (13.0-17.0) g/dL Hct (38.0-50.0) % MCV (80.0-98.0) fL MCH (27.0-32.0) pg MCHC (31.0-37.0) g/dL RDW Std Deviation (28.0-62.0) fl RDW Coeff of Pancho (11.0-15.0) % Plt Count (150-400) K/uL MPV (7.40-12.00) fL Nucleated RBC % /100WBC Nucleated RBCs # K/uL INR 1.25 Sodium (136-148) mmol/L Potassium (3.5-5.1) mmol/L Chloride (98-107) mmol/L Carbon Dioxide (21.0-32.0) mmol/L BUN (7.0-18.0) mg/dL Creatinine (0.8-1.3) mg/dL Est Cr Clr Drug Dosing mL/min Estimated GFR (MDRD) ml/min Glucose (74-106) mg/dL Hemoglobin A1c (4.5-6.2) % Calcium (8.5-10.1) mg/dL Magnesium (1.5-2.0) mg/dL Total Bilirubin (0.2-1.0) mg/dL AST (15-37) IU/L ALT (14-63) IU/L Alkaline Phosphatase (46-116) U/L Total Protein (6.4-8.2) g/dL Albumin (3.4-5.0) g/dL Globulin (2.0-3.5) g/dL Albumin/Globulin Ratio (1.3-2.8) Triglycerides (0-200) mg/dL Cholesterol (50-200) mg/dL LDL Cholesterol, Calc (60-180) mg/dL VLDL Cholesterol (5-55) mg/dL HDL Cholesterol (40-60) mg/dL Cholesterol/HDL Ratio (3.3-6.0) Med Orders - Current: Current Medications Acetaminophen (Tylenol) 650 mg PO Q6H PRN PRN Reason: Headache Citalopram Hydrobromide (Celexa) 20 mg PO DAILY [facility] Last Admin: 02/14/18 08:12 Dose: 20 mg Enoxaparin Sodium (Lovenox) 100 mg SUBCUT Q12HR [facility] Last Admin: 02/14/18 14:17 Dose: 100 mg Folic Acid (Folic Acid) 1 mg PO BEDTIME [facility] Last Admin: 02/13/18 20:48 Dose: 1 mg Furosemide (Lasix) 40 mg IVPUSH BIDDIURETIC [facility] Last Admin: 02/14/18 14:12 Dose: 40 mg Magnesium Sulfate 4 gm/ Premix 100 mls @ 50 mls/hr IV ONETIME ONE Stop: 02/14/18 16:47 Last Admin: 02/14/18 14:55 Dose: 50 mls/hr Lisinopril (Prinivil) 10 mg PO BEDTIME [facility] Last Admin: 02/13/18 20:48 Dose: 10 mg Lorazepam (Ativan) 0 mg IVPUSH Q4H PRN; Protocol PRN Reason: Other Last Admin: 02/13/18 22:09 Dose: 1 mg Metoprolol Succinate (Toprol Xl) 75 mg PO DAILY [facility] Morphine Sulfate (Morphine) 2 mg IVPUSH Q2H PRN PRN Reason: Pain Nitroglycerin (Nitro-Bid 2%) 1 gm TOP Q6H PRN PRN Reason: Chest Pain Ondansetron HCl (Zofran) 4 mg IVPUSH Q4H PRN PRN Reason: Nausea Last Admin: 02/12/18 20:00 Dose: 4 mg Pantoprazole Sodium (Protonix Iv) 40 mg IVPUSH DAILY [facility] Last Admin: 02/14/18 08:13 Dose: 40 mg Potassium Chloride (Klor-Con M20) 20 meq PO BID [facility] Last Admin: 02/14/18 08:12 Dose: 20 meq Temazepam (Restoril) 15 mg PO BEDTIME PRN PRN Reason: Insomnia Last Admin: 02/13/18 00:09 Dose: 15 mg Thiamine HCl (Vitamin B-1) 100 mg PO BEDTIME [facility] Last Admin: 02/13/18 20:47 Dose: 100 mg Warfarin Sodium (Coumadin) 5 mg PO DAILY@1400 [facility] Last Admin: 02/14/18 14:18 Dose: 5 mg Discontinued Medications Albuterol/Ipratropium (Duoneb 3.0-0.5 Mg/3 Ml) 3 ml NEB ONETIME ONE Stop: 02/12/18 01:06 Last Admin: 02/12/18 01:16 Dose: 3 ml Aspirin (Aspirin) 300 mg RECTAL ONETIME ONE Stop: 02/12/18 11:01 Last Admin: 02/12/18 12:13 Dose: Not Given Aspirin (Aspirin) 162 mg PO DAILY [facility] Last Admin: 02/13/18 08:57 Dose: 162 mg Aspirin (Halfprin) 162 mg PO ONETIME ONE Stop: 02/12/18 14:01 Last Admin: 02/12/18 15:14 Dose: 162 mg Atorvastatin Calcium (Lipitor) 80 mg PO ONETIME ONE Stop: 02/12/18 10:58 Last Admin: 02/12/18 11:11 Dose: 80 mg Folic Acid (Folic Acid) 1 mg PO DAILY [facility] Last Admin: 02/12/18 11:07 Dose: Not Given Furosemide (Lasix) 40 mg IVPUSH NOW ONE Stop: 02/12/18 01:07 Last Admin: 02/12/18 01:15 Dose: 40 mg Furosemide (Lasix) 40 mg IVPUSH BID [facility] Last Admin: 02/14/18 08:13 Dose: 40 mg Furosemide (Lasix) 40 mg IVPUSH NOW ONE Stop: 02/12/18 10:57 Last Admin: 02/12/18 11:14 Dose: 40 mg Furosemide (Lasix) 40 mg IVPUSH NOW ONE Stop: 02/13/18 16:22 Last Admin: 02/13/18 16:42 Dose: 40 mg Sodium Chloride (Normal Saline) 1,000 mls @ 999 mls/hr IV STAT ONE Stop: 02/12/18 01:56 Last Admin: 02/12/18 01:15 Dose: 999 mls/hr Magnesium Sulfate 4 gm/ Premix 100 mls @ 50 mls/hr IV ONETIME ONE Stop: 02/12/18 12:31 Last Admin: 02/12/18 11:00 Dose: 50 mls/hr Magnesium Sulfate 2 gm/ Premix 50 mls @ 50 mls/hr IV ONETIME ONE Stop: 02/13/18 13:40 Last Admin: 02/13/18 13:03 Dose: 50 mls/hr Lisinopril (Prinivil) 5 mg PO BEDTIME [facility] Last Admin: 02/12/18 20:01 Dose: 5 mg Methylprednisolone Sodium Succinate (Solu-Medrol) 125 mg IVPUSH ONETIME ONE Stop: 02/12/18 01:06 Last Admin: 02/12/18 01:15 Dose: 125 mg Metoprolol Succinate (Toprol Xl) 50 mg PO DAILY [facility] Last Admin: 02/14/18 08:11 Dose: 50 mg Metoprolol Succinate (Toprol Xl) 75 mg PO DAILY [facility] Last Admin: 02/14/18 09:01 Dose: Not Given Metoprolol Succinate (Toprol Xl) 25 mg PO ONETIME ONE Stop: 02/14/18 09:01 Last Admin: 02/14/18 09:19 Dose: 25 mg Morphine Sulfate (Morphine) 2 mg IVPUSH ONETIME ONE Stop: 02/12/18 00:57 Last Admin: 02/12/18 01:16 Dose: 2 mg Pantoprazole Sodium (Protonix) 40 mg PO ACBREAKFAST [facility] Last Admin: 02/12/18 07:02 Dose: 40 mg Warfarin Sodium (Coumadin) 5 mg PO DAILY [facility] - Problem List & Annotations (1) Acute exacerbation of congestive heart failure SNOMED Code(s): 25886347 Code(s): I50.9 - HEART FAILURE, UNSPECIFIED Status: Acute Current Visit: Yes (2) Anasarca SNOMED Code(s): 682071355, 399877628 Code(s): R60.1 - GENERALIZED EDEMA Status: Acute Priority: High Current Visit: Yes (3) Elevated troponin SNOMED Code(s): 722236649, 934865001, 785040653 Code(s): R74.8 - ABNORMAL LEVELS OF OTHER SERUM ENZYMES Status: Acute Current Visit: No (4) Alcohol intoxication SNOMED Code(s): 49326046 Code(s): F10.929 - ALCOHOL USE, UNSPECIFIED WITH INTOXICATION, UNSPECIFIED Status: Acute Current Visit: Yes (5) Chest pain, rule out acute myocardial infarction SNOMED Code(s): 18349280 Code(s): R07.9 - CHEST PAIN, UNSPECIFIED Status: Acute Current Visit: Yes - My Orders Last 24 Hours: My Active Orders 02/14/18 14:00 Enoxaparin [Lovenox] 100 mg SUBCUT Q12HR Furosemide [Lasix] 40 mg IVPUSH BIDDIURETIC 02/14/18 14:07 Warfarin [Coumadin] 5 mg PO DAILY@1400 02/14/18 14:48 Magnesium Sulfate/Water [Magnesium Sulfate 4 GM in Water 100 ML] 4 gm Premix Bag 1 bag IV ONETIME 02/15/18 05:11 CBC W/O DIFF,HEMOGRAM [HEME] AM CMP [COMPREHENSIVE METABOLIC PN,CMP] [CHEM] AM 02/15/18 06:00 CBC W/O DIFF,HEMOGRAM [HEME] DAILY 02/16/18 05:11 CBC W/O DIFF,HEMOGRAM [HEME] AM 02/16/18 06:00 CBC W/O DIFF,HEMOGRAM [HEME] DAILY 02/17/18 05:11 CBC W/O DIFF,HEMOGRAM [HEME] AM 02/17/18 06:00 CBC W/O DIFF,HEMOGRAM [HEME] DAILY 02/18/18 05:11 CBC W/O DIFF,HEMOGRAM [HEME] AM 02/19/18 05:11 CBC W/O DIFF,HEMOGRAM [HEME] AM - Plan Plan:: CHF exacerbation: Lasix 40 mg iv q 12 h ,increase lisinopril to 10 mg po at bedtime , monitor I and O water restriction to 1000 cc , Metoprolol xl 50 mg po daily. Chest pain r/o acs - troponins relatively stable , dw Cardiologyst , his troponins are due to his heart failure Alcohol intoxication : [facility] protocol DVT prof : heparin sq Chronically elevated troponins - secondary to heart failure Dvt prof - heparin sq
[2018-02-14] MEDS: Ondansetron 4 MG/2 ML SDV IVPUSH PRN (16:05)
[2018-02-14] MEDS: Lisinopril 5 MG Tab PO SCH (20:39)
[2018-02-14] MEDS: Thiamine 100 MG Tab PO SCH (20:39)
[2018-02-14] MEDS: Folic Acid 1 MG Tab PO SCH (20:39)
[2018-02-14] MEDS ORDERED: Lisinopril 10 MG Tab PO STA (21:22)
[2018-02-14] MEDS: Temazepam 15 MG Cap PO PRN (22:10)
--- NOTE | 2018-02-14 22:17 | PCM.PN ---
- General Info Date of Service: 02/14/18 Admission Dx/Problem (Free Text): 47M ETOH with decompensated systolic HF Subjective Update: he stated that he walked for 3 lapsed of the hallway with some SOB he felt his breathing almost back to normal, denied chest pain his BP tolerated. Functional Status: Reports: Pain Controlled - Review of Systems General: Reports: Weakness HEENT: Reports: No Symptoms Pulmonary: Reports: Shortness of Breath Cardiovascular: Reports: No Symptoms Gastrointestinal: Reports: No Symptoms Genitourinary: Reports: No Symptoms Musculoskeletal: Reports: No Symptoms Skin: Reports: No Symptoms Neurological: Reports: No Symptoms Psychiatric: Reports: No Symptoms - Patient Data Vitals - Most Recent: Last Vital Signs Temp 36.6 C 02/14/18 20:00 Pulse 78 02/14/18 20:00 Resp 20 02/14/18 20:00 BP 117/86 02/14/18 22:10 Pulse Ox 91 L 02/14/18 20:00 Weight - Most Recent: 102.603 kg I&O - Last 24 Hours: Intake & Output 02/14/18 02/14/18 02/14/18 06:59 14:59 22:59 Intake Total 500 100 675 Output Total 2750 1400 Balance -2250 100 -725 Lab Results Last 24 Hours: Laboratory Results - last 24 hr 02/14/18 02/14/18 02/14/18 Range/Units 05:58 05:58 05:58 WBC 5.49 (4.0-11.0) K/uL RBC 4.04 L (4.50-5.90) M/uL Hgb 11.3 L (13.0-17.0) g/dL Hct 35.2 L (38.0-50.0) % MCV 87.1 (80.0-98.0) fL MCH 28.0 (27.0-32.0) pg MCHC 32.1 (31.0-37.0) g/dL RDW Std Deviation 57.3 (28.0-62.0) fl RDW Coeff of Pancho 18 H (11.0-15.0) % Plt Count 299 (150-400) K/uL MPV 8.90 (7.40-12.00) fL Nucleated RBC % 0.0 /100WBC Nucleated RBCs # 0 K/uL INR Sodium 140 (136-148) mmol/L Potassium 3.9 (3.5-5.1) mmol/L Chloride 104 (98-107) mmol/L Carbon Dioxide 31.4 (21.0-32.0) mmol/L BUN 19 H (7.0-18.0) mg/dL Creatinine 1.2 (0.8-1.3) mg/dL Est Cr Clr Drug Dosing 77.48 mL/min Estimated GFR (MDRD) > 60.0 ml/min Glucose 91 (74-106) mg/dL Hemoglobin A1c (4.5-6.2) % Calcium 7.8 L (8.5-10.1) mg/dL Total Bilirubin 1.1 H (0.2-1.0) mg/dL AST 52 H (15-37) IU/L ALT 20 (14-63) IU/L Alkaline Phosphatase 164 H (46-116) U/L Total Protein 7.7 (6.4-8.2) g/dL Albumin 2.4 L (3.4-5.0) g/dL Globulin 5.3 H (2.0-3.5) g/dL Albumin/Globulin Ratio 0.5 L (1.3-2.8) Triglycerides 73 (0-200) mg/dL Cholesterol 85 (50-200) mg/dL LDL Cholesterol, Calc 40 L (60-180) mg/dL VLDL Cholesterol 14 (5-55) mg/dL HDL Cholesterol 30 L (40-60) mg/dL Cholesterol/HDL Ratio 2.8 L (3.3-6.0) 02/14/18 02/14/18 Range/Units 05:58 14:21 WBC (4.0-11.0) K/uL RBC (4.50-5.90) M/uL Hgb (13.0-17.0) g/dL Hct (38.0-50.0) % MCV (80.0-98.0) fL MCH (27.0-32.0) pg MCHC (31.0-37.0) g/dL RDW Std Deviation (28.0-62.0) fl RDW Coeff of Pancho (11.0-15.0) % Plt Count (150-400) K/uL MPV (7.40-12.00) fL Nucleated RBC % /100WBC Nucleated RBCs # K/uL INR 1.25 Sodium (136-148) mmol/L Potassium (3.5-5.1) mmol/L Chloride (98-107) mmol/L Carbon Dioxide (21.0-32.0) mmol/L BUN (7.0-18.0) mg/dL Creatinine (0.8-1.3) mg/dL Est Cr Clr Drug Dosing mL/min Estimated GFR (MDRD) ml/min Glucose (74-106) mg/dL Hemoglobin A1c 7.4 H (4.5-6.2) % Calcium (8.5-10.1) mg/dL Total Bilirubin (0.2-1.0) mg/dL AST (15-37) IU/L ALT (14-63) IU/L Alkaline Phosphatase (46-116) U/L Total Protein (6.4-8.2) g/dL Albumin (3.4-5.0) g/dL Globulin (2.0-3.5) g/dL Albumin/Globulin Ratio (1.3-2.8) Triglycerides (0-200) mg/dL Cholesterol (50-200) mg/dL LDL Cholesterol, Calc (60-180) mg/dL VLDL Cholesterol (5-55) mg/dL HDL Cholesterol (40-60) mg/dL Cholesterol/HDL Ratio (3.3-6.0) Med Orders - Current: Current Medications Acetaminophen (Tylenol) 650 mg PO Q6H PRN PRN Reason: Headache Citalopram Hydrobromide (Celexa) 20 mg PO DAILY [facility] Last Admin: 02/14/18 08:12 Dose: 20 mg Folic Acid (Folic Acid) 1 mg PO BEDTIME [facility] Last Admin: 02/14/18 20:39 Dose: 1 mg Furosemide (Lasix) 40 mg IVPUSH BIDDIURETIC [facility] Last Admin: 02/14/18 14:12 Dose: 40 mg Lisinopril (Prinivil) 20 mg PO BEDTIME [facility] Lorazepam (Ativan) 0 mg IVPUSH Q4H PRN; Protocol PRN Reason: Other Last Admin: 02/13/18 22:09 Dose: 1 mg Metoprolol Succinate (Toprol Xl) 75 mg PO DAILY [facility] Morphine Sulfate (Morphine) 2 mg IVPUSH Q2H PRN PRN Reason: Pain Nitroglycerin (Nitro-Bid 2%) 1 gm TOP Q6H PRN PRN Reason: Chest Pain Ondansetron HCl (Zofran) 4 mg IVPUSH Q4H PRN PRN Reason: Nausea Last Admin: 02/14/18 16:05 Dose: 4 mg Pantoprazole Sodium (Protonix Iv) 40 mg IVPUSH DAILY [facility] Last Admin: 02/14/18 08:13 Dose: 40 mg Potassium Chloride (Klor-Con M20) 20 meq PO BID [facility] Last Admin: 02/14/18 20:39 Dose: 20 meq Temazepam (Restoril) 15 mg PO BEDTIME PRN PRN Reason: Insomnia Last Admin: 02/14/18 22:10 Dose: 15 mg Thiamine HCl (Vitamin B-1) 100 mg PO BEDTIME [facility] Last Admin: 02/14/18 20:39 Dose: 100 mg Discontinued Medications Albuterol/Ipratropium (Duoneb 3.0-0.5 Mg/3 Ml) 3 ml NEB ONETIME ONE Stop: 02/12/18 01:06 Last Admin: 02/12/18 01:16 Dose: 3 ml Aspirin (Aspirin) 300 mg RECTAL ONETIME ONE Stop: 02/12/18 11:01 Last Admin: 02/12/18 12:13 Dose: Not Given Aspirin (Aspirin) 162 mg PO DAILY [facility] Last Admin: 02/13/18 08:57 Dose: 162 mg Aspirin (Halfprin) 162 mg PO ONETIME ONE Stop: 02/12/18 14:01 Last Admin: 02/12/18 15:14 Dose: 162 mg Atorvastatin Calcium (Lipitor) 80 mg PO ONETIME ONE Stop: 02/12/18 10:58 Last Admin: 02/12/18 11:11 Dose: 80 mg Enoxaparin Sodium (Lovenox) 100 mg SUBCUT Q12HR [facility] Last Admin: 02/14/18 14:17 Dose: 100 mg Folic Acid (Folic Acid) 1 mg PO DAILY [facility] Last Admin: 02/12/18 11:07 Dose: Not Given Furosemide (Lasix) 40 mg IVPUSH NOW ONE Stop: 02/12/18 01:07 Last Admin: 02/12/18 01:15 Dose: 40 mg Furosemide (Lasix) 40 mg IVPUSH BID [facility] Last Admin: 02/14/18 08:13 Dose: 40 mg Furosemide (Lasix) 40 mg IVPUSH NOW ONE Stop: 02/12/18 10:57 Last Admin: 02/12/18 11:14 Dose: 40 mg Furosemide (Lasix) 40 mg IVPUSH NOW ONE Stop: 02/13/18 16:22 Last Admin: 02/13/18 16:42 Dose: 40 mg Sodium Chloride (Normal Saline) 1,000 mls @ 999 mls/hr IV STAT ONE Stop: 02/12/18 01:56 Last Admin: 02/12/18 01:15 Dose: 999 mls/hr Magnesium Sulfate 4 gm/ Premix 100 mls @ 50 mls/hr IV ONETIME ONE Stop: 02/12/18 12:31 Last Admin: 02/12/18 11:00 Dose: 50 mls/hr Magnesium Sulfate 2 gm/ Premix 50 mls @ 50 mls/hr IV ONETIME ONE Stop: 02/13/18 13:40 Last Admin: 02/13/18 13:03 Dose: 50 mls/hr Magnesium Sulfate 4 gm/ Premix 100 mls @ 50 mls/hr IV ONETIME ONE Stop: 02/14/18 16:47 Last Admin: 02/14/18 14:55 Dose: 50 mls/hr Lisinopril (Prinivil) 5 mg PO BEDTIME [facility] Last Admin: 02/12/18 20:01 Dose: 5 mg Lisinopril (Prinivil) 10 mg PO BEDTIME [facility] Last Admin: 02/14/18 20:39 Dose: 10 mg Lisinopril (Prinivil) 10 mg PO ONETIME STA Stop: 02/14/18 21:23 Last Admin: 02/14/18 22:10 Dose: 10 mg Methylprednisolone Sodium Succinate (Solu-Medrol) 125 mg IVPUSH ONETIME ONE Stop: 02/12/18 01:06 Last Admin: 02/12/18 01:15 Dose: 125 mg Metoprolol Succinate (Toprol Xl) 50 mg PO DAILY [facility] Last Admin: 02/14/18 08:11 Dose: 50 mg Metoprolol Succinate (Toprol Xl) 75 mg PO DAILY [facility] Last Admin: 02/14/18 09:01 Dose: Not Given Metoprolol Succinate (Toprol Xl) 25 mg PO ONETIME ONE Stop: 02/14/18 09:01 Last Admin: 02/14/18 09:19 Dose: 25 mg Morphine Sulfate (Morphine) 2 mg IVPUSH ONETIME ONE Stop: 02/12/18 00:57 Last Admin: 02/12/18 01:16 Dose: 2 mg Pantoprazole Sodium (Protonix) 40 mg PO ACBREAKFAST [facility] Last Admin: 02/12/18 07:02 Dose: 40 mg Warfarin Sodium (Coumadin) 5 mg PO DAILY PRANAY Warfarin Sodium (Coumadin) 5 mg PO DAILY@1400 PRANAY Last Admin: 02/14/18 14:18 Dose: 5 mg - Exam General: Alert, Oriented HEENT: Pupils Equal, Pupils Reactive Neck: Supple Lungs: Rales Cardiovascular: Regular Rate, Regular Rhythm GI/Abdominal Exam: Soft, Non-Tender, Distended (Male) Exam: No Hernia EKG INTERPRETATION Rhythm: NSR - Problem List Review Problem List Initiated/Reviewed/Updated: Yes - My Orders Last 24 Hours: My Active Orders 02/15/18 09:00 Metoprolol Succinate [Toprol XL] 75 mg PO DAILY 02/15/18 21:00 Lisinopril [Prinivil] 20 mg PO BEDTIME - Plan Plan:: 47M ETOH intoxication decompensated systolic CHF 1. decompensated systolic HF, he would need ischemic work up, he is on now lisinopril 10, toprol 50 daily, lasix 40 IV BID. He felt better. - probably change to PO lasix 40 BID - increase lisinopril to 20 daily - possibly increase toprol to 100 daily tomorrow am - need ischemic work up possibly coronary angiogram - he should stop drinking completely
[2018-02-14] MEDS ORDERED: traMADol 50 MG Tab PO PRN (23:42)
--- NOTE | 2018-02-14 23:43 | PCM.PN ---
- General Info Date of Service: 02/14/18 Admission Dx/Problem (Free Text): Patient seen in the morning . No orthopneea .he was able to sleep on one pillow. Diuresed 3500 cc over the pat 24 h . No other issues - Review of Systems General: Reports: No Symptoms HEENT: Reports: No Symptoms Pulmonary: Reports: No Symptoms Cardiovascular: Reports: Dyspnea on Exertion Gastrointestinal: Reports: No Symptoms Genitourinary: Reports: No Symptoms Musculoskeletal: Reports: No Symptoms Skin: Reports: No Symptoms Neurological: Reports: No Symptoms Psychiatric: Reports: No Symptoms - Patient Data Vitals - Most Recent: Last Vital Signs Temp 97.9 F 02/14/18 20:00 Pulse 78 02/14/18 20:00 Resp 20 02/14/18 20:00 BP 117/86 02/14/18 22:10 Pulse Ox 91 L 02/14/18 20:00 Weight - Most Recent: 226 lb 3.2 oz I&O - Last 24 Hours: Intake & Output 02/14/18 02/14/18 02/15/18 14:59 22:59 06:59 Intake Total 100 675 Output Total 1400 Balance 100 -725 Lab Results Last 24 Hours: Laboratory Results - last 24 hr 02/14/18 02/14/18 02/14/18 Range/Units 05:58 05:58 05:58 WBC 5.49 (4.0-11.0) K/uL RBC 4.04 L (4.50-5.90) M/uL Hgb 11.3 L (13.0-17.0) g/dL Hct 35.2 L (38.0-50.0) % MCV 87.1 (80.0-98.0) fL MCH 28.0 (27.0-32.0) pg MCHC 32.1 (31.0-37.0) g/dL RDW Std Deviation 57.3 (28.0-62.0) fl RDW Coeff of Pancho 18 H (11.0-15.0) % Plt Count 299 (150-400) K/uL MPV 8.90 (7.40-12.00) fL Nucleated RBC % 0.0 /100WBC Nucleated RBCs # 0 K/uL INR Sodium 140 (136-148) mmol/L Potassium 3.9 (3.5-5.1) mmol/L Chloride 104 (98-107) mmol/L Carbon Dioxide 31.4 (21.0-32.0) mmol/L BUN 19 H (7.0-18.0) mg/dL Creatinine 1.2 (0.8-1.3) mg/dL Est Cr Clr Drug Dosing 77.48 mL/min Estimated GFR (MDRD) > 60.0 ml/min Glucose 91 (74-106) mg/dL Hemoglobin A1c (4.5-6.2) % Calcium 7.8 L (8.5-10.1) mg/dL Total Bilirubin 1.1 H (0.2-1.0) mg/dL AST 52 H (15-37) IU/L ALT 20 (14-63) IU/L Alkaline Phosphatase 164 H (46-116) U/L Total Protein 7.7 (6.4-8.2) g/dL Albumin 2.4 L (3.4-5.0) g/dL Globulin 5.3 H (2.0-3.5) g/dL Albumin/Globulin Ratio 0.5 L (1.3-2.8) Triglycerides 73 (0-200) mg/dL Cholesterol 85 (50-200) mg/dL LDL Cholesterol, Calc 40 L (60-180) mg/dL VLDL Cholesterol 14 (5-55) mg/dL HDL Cholesterol 30 L (40-60) mg/dL Cholesterol/HDL Ratio 2.8 L (3.3-6.0) 02/14/18 02/14/18 Range/Units 05:58 14:21 WBC (4.0-11.0) K/uL RBC (4.50-5.90) M/uL Hgb (13.0-17.0) g/dL Hct (38.0-50.0) % MCV (80.0-98.0) fL MCH (27.0-32.0) pg MCHC (31.0-37.0) g/dL RDW Std Deviation (28.0-62.0) fl RDW Coeff of Pancho (11.0-15.0) % Plt Count (150-400) K/uL MPV (7.40-12.00) fL Nucleated RBC % /100WBC Nucleated RBCs # K/uL INR 1.25 Sodium (136-148) mmol/L Potassium (3.5-5.1) mmol/L Chloride (98-107) mmol/L Carbon Dioxide (21.0-32.0) mmol/L BUN (7.0-18.0) mg/dL Creatinine (0.8-1.3) mg/dL Est Cr Clr Drug Dosing mL/min Estimated GFR (MDRD) ml/min Glucose (74-106) mg/dL Hemoglobin A1c 7.4 H (4.5-6.2) % Calcium (8.5-10.1) mg/dL Total Bilirubin (0.2-1.0) mg/dL AST (15-37) IU/L ALT (14-63) IU/L Alkaline Phosphatase (46-116) U/L Total Protein (6.4-8.2) g/dL Albumin (3.4-5.0) g/dL Globulin (2.0-3.5) g/dL Albumin/Globulin Ratio (1.3-2.8) Triglycerides (0-200) mg/dL Cholesterol (50-200) mg/dL LDL Cholesterol, Calc (60-180) mg/dL VLDL Cholesterol (5-55) mg/dL HDL Cholesterol (40-60) mg/dL Cholesterol/HDL Ratio (3.3-6.0) Med Orders - Current: Current Medications Acetaminophen (Tylenol) 650 mg PO Q6H PRN PRN Reason: Headache Citalopram Hydrobromide (Celexa) 20 mg PO DAILY [facility] Last Admin: 02/14/18 08:12 Dose: 20 mg Folic Acid (Folic Acid) 1 mg PO BEDTIME [facility] Last Admin: 02/14/18 20:39 Dose: 1 mg Furosemide (Lasix) 40 mg IVPUSH BIDDIURETIC [facility] Last Admin: 02/14/18 14:12 Dose: 40 mg Lisinopril (Prinivil) 20 mg PO BEDTIME [facility] Lorazepam (Ativan) 0 mg IVPUSH Q4H PRN; Protocol PRN Reason: Other Last Admin: 02/13/18 22:09 Dose: 1 mg Metoprolol Succinate (Toprol Xl) 75 mg PO DAILY [facility] Morphine Sulfate (Morphine) 2 mg IVPUSH Q2H PRN PRN Reason: Pain Nitroglycerin (Nitro-Bid 2%) 1 gm TOP Q6H PRN PRN Reason: Chest Pain Ondansetron HCl (Zofran) 4 mg IVPUSH Q4H PRN PRN Reason: Nausea Last Admin: 02/14/18 16:05 Dose: 4 mg Pantoprazole Sodium (Protonix Iv) 40 mg IVPUSH DAILY [facility] Last Admin: 02/14/18 08:13 Dose: 40 mg Potassium Chloride (Klor-Con M20) 20 meq PO BID [facility] Last Admin: 02/14/18 20:39 Dose: 20 meq Temazepam (Restoril) 15 mg PO BEDTIME PRN PRN Reason: Insomnia Last Admin: 02/14/18 22:10 Dose: 15 mg Thiamine HCl (Vitamin B-1) 100 mg PO BEDTIME [facility] Last Admin: 02/14/18 20:39 Dose: 100 mg Discontinued Medications Albuterol/Ipratropium (Duoneb 3.0-0.5 Mg/3 Ml) 3 ml NEB ONETIME ONE Stop: 02/12/18 01:06 Last Admin: 02/12/18 01:16 Dose: 3 ml Aspirin (Aspirin) 300 mg RECTAL ONETIME ONE Stop: 02/12/18 11:01 Last Admin: 02/12/18 12:13 Dose: Not Given Aspirin (Aspirin) 162 mg PO DAILY [facility] Last Admin: 02/13/18 08:57 Dose: 162 mg Aspirin (Halfprin) 162 mg PO ONETIME ONE Stop: 02/12/18 14:01 Last Admin: 02/12/18 15:14 Dose: 162 mg Atorvastatin Calcium (Lipitor) 80 mg PO ONETIME ONE Stop: 02/12/18 10:58 Last Admin: 02/12/18 11:11 Dose: 80 mg Enoxaparin Sodium (Lovenox) 100 mg SUBCUT Q12HR [facility] Last Admin: 02/14/18 22:34 Dose: Not Given Folic Acid (Folic Acid) 1 mg PO DAILY [facility] Last Admin: 02/12/18 11:07 Dose: Not Given Furosemide (Lasix) 40 mg IVPUSH NOW ONE Stop: 02/12/18 01:07 Last Admin: 02/12/18 01:15 Dose: 40 mg Furosemide (Lasix) 40 mg IVPUSH BID [facility] Last Admin: 02/14/18 08:13 Dose: 40 mg Furosemide (Lasix) 40 mg IVPUSH NOW ONE Stop: 02/12/18 10:57 Last Admin: 02/12/18 11:14 Dose: 40 mg Furosemide (Lasix) 40 mg IVPUSH NOW ONE Stop: 02/13/18 16:22 Last Admin: 02/13/18 16:42 Dose: 40 mg Sodium Chloride (Normal Saline) 1,000 mls @ 999 mls/hr IV STAT ONE Stop: 02/12/18 01:56 Last Admin: 02/12/18 01:15 Dose: 999 mls/hr Magnesium Sulfate 4 gm/ Premix 100 mls @ 50 mls/hr IV ONETIME ONE Stop: 02/12/18 12:31 Last Admin: 02/12/18 11:00 Dose: 50 mls/hr Magnesium Sulfate 2 gm/ Premix 50 mls @ 50 mls/hr IV ONETIME ONE Stop: 02/13/18 13:40 Last Admin: 02/13/18 13:03 Dose: 50 mls/hr Magnesium Sulfate 4 gm/ Premix 100 mls @ 50 mls/hr IV ONETIME ONE Stop: 02/14/18 16:47 Last Admin: 02/14/18 14:55 Dose: 50 mls/hr Lisinopril (Prinivil) 5 mg PO BEDTIME [facility] Last Admin: 02/12/18 20:01 Dose: 5 mg Lisinopril (Prinivil) 10 mg PO BEDTIME [facility] Last Admin: 02/14/18 20:39 Dose: 10 mg Lisinopril (Prinivil) 10 mg PO ONETIME STA Stop: 02/14/18 21:23 Last Admin: 02/14/18 22:10 Dose: 10 mg Methylprednisolone Sodium Succinate (Solu-Medrol) 125 mg IVPUSH ONETIME ONE Stop: 02/12/18 01:06 Last Admin: 02/12/18 01:15 Dose: 125 mg Metoprolol Succinate (Toprol Xl) 50 mg PO DAILY [facility] Last Admin: 02/14/18 08:11 Dose: 50 mg Metoprolol Succinate (Toprol Xl) 75 mg PO DAILY [facility] Last Admin: 02/14/18 09:01 Dose: Not Given Metoprolol Succinate (Toprol Xl) 25 mg PO ONETIME ONE Stop: 02/14/18 09:01 Last Admin: 02/14/18 09:19 Dose: 25 mg Morphine Sulfate (Morphine) 2 mg IVPUSH ONETIME ONE Stop: 02/12/18 00:57 Last Admin: 02/12/18 01:16 Dose: 2 mg Pantoprazole Sodium (Protonix) 40 mg PO ACBREAKFAST [facility] Last Admin: 02/12/18 07:02 Dose: 40 mg Warfarin Sodium (Coumadin) 5 mg PO DAILY [facility] Warfarin Sodium (Coumadin) 5 mg PO DAILY@1400 [facility] Last Admin: 02/14/18 14:18 Dose: 5 mg - Exam General: Alert, Oriented HEENT: Pupils Equal, Pupils Reactive, EOMI Lungs: Clear to Auscultation, Normal Respiratory Effort, Decreased Breath Sounds Cardiovascular: Regular Rate, Regular Rhythm, No Murmurs - Problem List & Annotations (1) Acute exacerbation of congestive heart failure SNOMED Code(s): 00500277 Code(s): I50.9 - HEART FAILURE, UNSPECIFIED Status: Acute Current Visit: Yes (2) Anasarca SNOMED Code(s): 684606880, 988361625 Code(s): R60.1 - GENERALIZED EDEMA Status: Acute Priority: High Current Visit: Yes (3) Elevated troponin SNOMED Code(s): 844179151, 248057406, 108423844 Code(s): R74.8 - ABNORMAL LEVELS OF OTHER SERUM ENZYMES Status: Acute Current Visit: No (4) Alcohol intoxication SNOMED Code(s): 80488151 Code(s): F10.929 - ALCOHOL USE, UNSPECIFIED WITH INTOXICATION, UNSPECIFIED Status: Acute Current Visit: Yes (5) Chest pain, rule out acute myocardial infarction SNOMED Code(s): 46171292 Code(s): R07.9 - CHEST PAIN, UNSPECIFIED Status: Acute Current Visit: Yes - Problem List Review Problem List Initiated/Reviewed/Updated: Yes - My Orders Last 24 Hours: My Active Orders 02/14/18 14:00 Furosemide [Lasix] 40 mg IVPUSH BIDDIURETIC 02/14/18 23:42 traMADol [Ultram] 50 mg PO Q6H PRN 02/15/18 05:11 CBC W/O DIFF,HEMOGRAM [HEME] AM CMP [COMPREHENSIVE METABOLIC PN,CMP] [CHEM] AM 02/15/18 06:00 CBC W/O DIFF,HEMOGRAM [HEME] DAILY 02/15/18 09:00 Cyanocobalamin/FA/Pyridoxine [Folic Acid-Vit B6-Vit B12] 1 each PO DAILY Furosemide [Lasix] 40 mg PO BID Magnesium Oxide 400 mg PO DAILY Metoprolol Succinate [Toprol XL] 50 mg PO DAILY 02/15/18 21:00 Thiamine [Vitamin B-1] 100 mg PO BEDTIME 02/16/18 05:11 CBC W/O DIFF,HEMOGRAM [HEME] AM 02/16/18 06:00 CBC W/O DIFF,HEMOGRAM [HEME] DAILY 02/17/18 05:11 CBC W/O DIFF,HEMOGRAM [HEME] AM 02/17/18 06:00 CBC W/O DIFF,HEMOGRAM [HEME] DAILY 02/18/18 05:11 CBC W/O DIFF,HEMOGRAM [HEME] AM 02/19/18 05:11 CBC W/O DIFF,HEMOGRAM [HEME] AM - Plan Plan:: 47M ETOH intoxication decompensated systolic CHF 1. decompensated systolic CHF systolic - change to PO lasix 40 BID - increase lisinopril to 20 daily - possibly increase toprol to 100 daily tomorrow am - need ischemic work up possibly coronary angiogram - Patient counseled to stop drinking completely 2) Alcohol abuse - on [facility] protocol. 3)DVT prof : heparin sq
[2018-02-15] MEDS ORDERED: Heparin Sodium 5,000 Units/ML Vial SUBCUT SCH (05:30)
[2018-02-15] MEDS: Ondansetron 4 MG/2 ML SDV IVPUSH PRN (06:13)
[2018-02-15 06:51] LABS: CHLORIDE,CL 105 mmol/L (98-107); SODIUM,NA 139 mmol/L (136-148)
[2018-02-15] MEDS ORDERED: Furosemide 40 MG Tab PO SCH (08:00)
[2018-02-15] MEDS: Potassium Chloride 20 MEQ Tab.ER PO SCH (08:10)
[2018-02-15] MEDS: Citalopram 20 MG Tab PO SCH (08:10)
[2018-02-15] MEDS: Pantoprazole 40 MG Vial IVPUSH SCH (08:11)
--- NOTE | 2018-02-15 08:20 | PCM.DCSUM1 ---
Discharge Summary - Discharge Data Discharge Date: 02/14/18 Discharge Disposition: Home, Self-Care 01 Condition: Stable - Discharge Diagnosis/Problem(s) (1) Acute exacerbation of congestive heart failure SNOMED Code(s): 88089530 ICD Code: I50.9 - HEART FAILURE, UNSPECIFIED Status: Acute (2) Anasarca SNOMED Code(s): 436506018, 020495369 ICD Code: R60.1 - GENERALIZED EDEMA Status: Acute Priority: High (3) Elevated troponin SNOMED Code(s): 110926736, 909525587, 613037843 ICD Code: R74.8 - ABNORMAL LEVELS OF OTHER SERUM ENZYMES Status: Acute (4) Alcohol intoxication SNOMED Code(s): 68892478 ICD Code: F10.929 - ALCOHOL USE, UNSPECIFIED WITH INTOXICATION, UNSPECIFIED Status: Acute (5) Chest pain, rule out acute myocardial infarction SNOMED Code(s): 39230001 ICD Code: R07.9 - CHEST PAIN, UNSPECIFIED Status: Acute - Patient Summary/Data Consults: Consultations 02/13/18 13:05 Consult to Physician [CONS] Routine - Patient Instructions Diet: Heart Healthy Diet, Usual Diet as Tolerated Activity: As Tolerated Driving: May Drive Today Showering/Bathing: May Shower - Discharge Plan Prescriptions/Med Rec: Folic Acid 1 mg PO BEDTIME 90 Days #90 tablet Furosemide [Lasix] 40 mg PO BIDDIURETIC #180 tablet Lisinopril [Prinivil] 20 mg PO BEDTIME 90 Days #90 tablet Magnesium Oxide 400 mg PO DAILY 90 Days #90 tablet Metoprolol Succinate [Toprol XL 100mg] 100 mg PO DAILY 90 Days #90 tab.er Potassium Chloride [Klor-Con M20] 20 meq PO BID 90 Days #180 tab.er Thiamine [Vitamin B-1] 100 mg PO BEDTIME 90 Days #90 tablet Home Medications: Home Meds Folic Acid 1 mg PO DAILY 30 Days #30 tab 12/09/17 [Rx] Citalopram [Citalopram HBr] 20 mg PO DAILY 02/06/18 [History] Cyanocobalamin/FA/Pyridoxine [Folic Acid-Vit B6-Vit B12] 1 each PO DAILY #90 tablet 02/09/18 [Rx] Furosemide 40 mg PO BID #60 tablet 02/09/18 [Rx] traMADol [Ultram] 50 mg PO Q6H PRN tablet 02/09/18 [Rx] Folic Acid 1 mg PO BEDTIME 90 Days #90 tablet 02/15/18 [Rx] Furosemide [Lasix] 40 mg PO BIDDIURETIC #180 tablet 02/15/18 [Rx] Lisinopril [Prinivil] 20 mg PO BEDTIME 90 Days #90 tablet 02/15/18 [Rx] Magnesium Oxide 400 mg PO DAILY 90 Days #90 tablet 02/15/18 [Rx] Metoprolol Succinate [Toprol XL 100mg] 100 mg PO DAILY 90 Days #90 tab.er [Rx] Potassium Chloride [Klor-Con M20] 20 meq PO BID 90 Days #180 tab.er 02/15/18 [Rx ] Thiamine [Vitamin B-1] 100 mg PO BEDTIME 90 Days #90 tablet 02/15/18 [Rx] Patient Handouts: Furosemide tablets, Metoprolol extended-release tablets, Potassium Salts tablets, extended-release tablets or capsules, Sodium picosulfate; Magnesium oxide; Anhydrous citric acid oral solution, Thiamine, Vitamin B1 tablets, Lisinopril tablets, Heart Failure, Idex-yi-Mfxw, Folic Acid , Vitamin B9 tablets Referrals: [facility] [Outside] Jl Silver MD [Physician] - 02/16/18 10:00 am Romeo Persaud MD [Resident] - 02/22/18 2:30 pm - Discharge Summary/Plan Comment DC Time >30 min.: Yes - General Info Date of Service: 02/16/18 Admission Dx/Problem (Free Text: Patient seen in the morning . No orthopneea .he was able to sleep on one pillow. Diuresed 3500 cc over the pat 24 h . No other issues Subjective Update: Patient admitted in the hospital with alcohol intoxication and CHF exacerbation due to fluid overload due to medication noncompliance( patient did not pick his medications from pharmacy). He was diuresed with lasix iv and he was started back on B Blockers which were titrated up as BP permitted. Had cardiology consult , he improved and was stable for discharge , f/up with Cardiology and PCP as outpatient. In the hospital he was on [facility] protocol. At admission he also had an episode of chest pain and troponins who were chronically elevated did not significantly change . No other episode of chest pain. Patient needs ischemic work up as outpatient. - Review of Systems General: Reports: No Symptoms HEENT: Reports: No Symptoms Pulmonary: Reports: Shortness of Breath Gastrointestinal: Reports: No Symptoms Genitourinary: Reports: No Symptoms Musculoskeletal: Reports: No Symptoms Skin: Reports: No Symptoms Neurological: Reports: No Symptoms Psychiatric: Reports: No Symptoms - Patient Data Vitals - Most Recent: Last Vital Signs Temp 98.7 F 02/15/18 08:00 Pulse 77 02/15/18 08:10 Resp 18 02/15/18 08:00 BP 111/80 02/15/18 08:10 Pulse Ox 93 L 02/15/18 08:00 Weight - Most Recent: 221 lb 8 oz I&O - Last 24 hours: Intake & Output 02/14/18 02/15/18 02/15/18 22:59 06:59 14:59 Intake Total 675 500 Output Total 1400 650 Balance -725 -150 Lab Results - Last 24 hrs: Laboratory Results - last 24 hr 02/14/18 02/14/18 02/14/18 Range/Units 05:58 05:58 14:21 WBC (4.0-11.0) K/uL RBC (4.50-5.90) M/uL Hgb (13.0-17.0) g/dL Hct (38.0-50.0) % MCV (80.0-98.0) fL MCH (27.0-32.0) pg MCHC (31.0-37.0) g/dL RDW Std Deviation (28.0-62.0) fl RDW Coeff of Pancho (11.0-15.0) % Plt Count (150-400) K/uL MPV (7.40-12.00) fL Nucleated RBC % /100WBC Nucleated RBCs # K/uL INR 1.25 Sodium (136-148) mmol/L Potassium (3.5-5.1) mmol/L Chloride (98-107) mmol/L Carbon Dioxide (21.0-32.0) mmol/L BUN (7.0-18.0) mg/dL Creatinine (0.8-1.3) mg/dL Est Cr Clr Drug Dosing mL/min Estimated GFR (MDRD) ml/min Glucose (74-106) mg/dL Hemoglobin A1c 7.4 H (4.5-6.2) % Calcium (8.5-10.1) mg/dL Total Bilirubin (0.2-1.0) mg/dL AST (15-37) IU/L ALT (14-63) IU/L Alkaline Phosphatase (46-116) U/L Total Protein (6.4-8.2) g/dL Albumin (3.4-5.0) g/dL Globulin (2.0-3.5) g/dL Albumin/Globulin Ratio (1.3-2.8) Triglycerides 73 (0-200) mg/dL Cholesterol 85 (50-200) mg/dL LDL Cholesterol, Calc 40 L (60-180) mg/dL VLDL Cholesterol 14 (5-55) mg/dL HDL Cholesterol 30 L (40-60) mg/dL Cholesterol/HDL Ratio 2.8 L (3.3-6.0) 02/15/18 02/15/18 Range/Units 05:48 05:48 WBC 5.78 (4.0-11.0) K/uL RBC 4.18 L (4.50-5.90) M/uL Hgb 11.4 L (13.0-17.0) g/dL Hct 36.6 L (38.0-50.0) % MCV 87.6 (80.0-98.0) fL MCH 27.3 (27.0-32.0) pg MCHC 31.1 (31.0-37.0) g/dL RDW Std Deviation 57.7 (28.0-62.0) fl RDW Coeff of Pancho 18 H (11.0-15.0) % Plt Count 301 (150-400) K/uL MPV 8.70 (7.40-12.00) fL Nucleated RBC % 0.0 /100WBC Nucleated RBCs # 0 K/uL INR Sodium 139 (136-148) mmol/L Potassium 4.0 (3.5-5.1) mmol/L Chloride 105 (98-107) mmol/L Carbon Dioxide 28.5 (21.0-32.0) mmol/L BUN 18 (7.0-18.0) mg/dL Creatinine 1.2 (0.8-1.3) mg/dL Est Cr Clr Drug Dosing 77.48 mL/min Estimated GFR (MDRD) > 60.0 ml/min Glucose 84 (74-106) mg/dL Hemoglobin A1c (4.5-6.2) % Calcium 8.1 L (8.5-10.1) mg/dL Total Bilirubin 1.4 H (0.2-1.0) mg/dL AST 44 H (15-37) IU/L ALT 17 (14-63) IU/L Alkaline Phosphatase 164 H (46-116) U/L Total Protein 7.7 (6.4-8.2) g/dL Albumin 2.3 L (3.4-5.0) g/dL Globulin 5.4 H (2.0-3.5) g/dL Albumin/Globulin Ratio 0.4 L (1.3-2.8) Triglycerides (0-200) mg/dL Cholesterol (50-200) mg/dL LDL Cholesterol, Calc (60-180) mg/dL VLDL Cholesterol (5-55) mg/dL HDL Cholesterol (40-60) mg/dL Cholesterol/HDL Ratio (3.3-6.0) Med Orders - Current: Current Medications Acetaminophen (Tylenol) 650 mg PO Q6H PRN PRN Reason: Headache Citalopram Hydrobromide (Celexa) 20 mg PO DAILY [facility] Last Admin: 02/15/18 08:10 Dose: 20 mg Folic Acid (Folic Acid) 1 mg PO BEDTIME [facility] Last Admin: 02/14/18 20:39 Dose: 1 mg Furosemide (Lasix) 40 mg PO BIDDIURETIC [facility] Last Admin: 02/15/18 08:11 Dose: 40 mg Heparin Sodium (Porcine) (Heparin Sodium) 5,000 units SUBCUT Q8H [facility] Last Admin: 02/15/18 06:10 Dose: 5,000 units Lisinopril (Prinivil) 20 mg PO BEDTIME [facility] Lorazepam (Ativan) 0 mg IVPUSH Q4H PRN; Protocol PRN Reason: Other Last Admin: 02/13/18 22:09 Dose: 1 mg Magnesium Oxide (Magnesium Oxide) 400 mg PO DAILY [facility] Last Admin: 02/15/18 08:10 Dose: 400 mg Metoprolol Succinate (Toprol Xl) 100 mg PO DAILY [facility] Last Admin: 02/15/18 08:10 Dose: 100 mg Morphine Sulfate (Morphine) 2 mg IVPUSH Q2H PRN PRN Reason: Pain Nitroglycerin (Nitro-Bid 2%) 1 gm TOP Q6H PRN PRN Reason: Chest Pain Non-Formulary Medication (Cyanocobalamin/Fa/Pyridoxine [Folic Acid-Vit B6-Vit B12]) 1 each PO DAILY [facility] Ondansetron HCl (Zofran) 4 mg IVPUSH Q4H PRN PRN Reason: Nausea Last Admin: 02/15/18 06:13 Dose: 4 mg Pantoprazole Sodium (Protonix Iv) 40 mg IVPUSH DAILY [facility] Last Admin: 02/15/18 08:11 Dose: 40 mg Potassium Chloride (Klor-Con M20) 20 meq PO BID [facility] Last Admin: 02/15/18 08:10 Dose: 20 meq Temazepam (Restoril) 15 mg PO BEDTIME PRN PRN Reason: Insomnia Last Admin: 02/14/18 22:10 Dose: 15 mg Thiamine HCl (Vitamin B-1) 100 mg PO BEDTIME [facility] Last Admin: 02/14/18 20:39 Dose: 100 mg Tramadol HCl (Ultram) 50 mg PO Q6H PRN PRN Reason: Pain Discontinued Medications Albuterol/Ipratropium (Duoneb 3.0-0.5 Mg/3 Ml) 3 ml NEB ONETIME ONE Stop: 02/12/18 01:06 Last Admin: 02/12/18 01:16 Dose: 3 ml Aspirin (Aspirin) 300 mg RECTAL ONETIME ONE Stop: 02/12/18 11:01 Last Admin: 02/12/18 12:13 Dose: Not Given Aspirin (Aspirin) 162 mg PO DAILY [facility] Last Admin: 02/13/18 08:57 Dose: 162 mg Aspirin (Halfprin) 162 mg PO ONETIME ONE Stop: 02/12/18 14:01 Last Admin: 02/12/18 15:14 Dose: 162 mg Atorvastatin Calcium (Lipitor) 80 mg PO ONETIME ONE Stop: 02/12/18 10:58 Last Admin: 02/12/18 11:11 Dose: 80 mg Enoxaparin Sodium (Lovenox) 100 mg SUBCUT Q12HR [facility] Last Admin: 02/14/18 22:34 Dose: Not Given Folic Acid (Folic Acid) 1 mg PO DAILY [facility] Last Admin: 02/12/18 11:07 Dose: Not Given Furosemide (Lasix) 40 mg IVPUSH NOW ONE Stop: 02/12/18 01:07 Last Admin: 02/12/18 01:15 Dose: 40 mg Furosemide (Lasix) 40 mg IVPUSH BID [facility] Last Admin: 02/14/18 08:13 Dose: 40 mg Furosemide (Lasix) 40 mg IVPUSH NOW ONE Stop: 02/12/18 10:57 Last Admin: 02/12/18 11:14 Dose: 40 mg Furosemide (Lasix) 40 mg IVPUSH NOW ONE Stop: 02/13/18 16:22 Last Admin: 02/13/18 16:42 Dose: 40 mg Furosemide (Lasix) 40 mg IVPUSH BIDDIURETIC [facility] Last Admin: 02/14/18 14:12 Dose: 40 mg Sodium Chloride (Normal Saline) 1,000 mls @ 999 mls/hr IV STAT ONE Stop: 02/12/18 01:56 Last Admin: 02/12/18 01:15 Dose: 999 mls/hr Magnesium Sulfate 4 gm/ Premix 100 mls @ 50 mls/hr IV ONETIME ONE Stop: 02/12/18 12:31 Last Admin: 02/12/18 11:00 Dose: 50 mls/hr Magnesium Sulfate 2 gm/ Premix 50 mls @ 50 mls/hr IV ONETIME ONE Stop: 02/13/18 13:40 Last Admin: 02/13/18 13:03 Dose: 50 mls/hr Magnesium Sulfate 4 gm/ Premix 100 mls @ 50 mls/hr IV ONETIME ONE Stop: 02/14/18 16:47 Last Admin: 02/14/18 14:55 Dose: 50 mls/hr Lisinopril (Prinivil) 5 mg PO BEDTIME [facility] Last Admin: 02/12/18 20:01 Dose: 5 mg Lisinopril (Prinivil) 10 mg PO BEDTIME [facility] Last Admin: 02/14/18 20:39 Dose: 10 mg Lisinopril (Prinivil) 10 mg PO ONETIME [facility] Stop: 02/14/18 21:23 Last Admin: 02/14/18 22:10 Dose: 10 mg Methylprednisolone Sodium Succinate (Solu-Medrol) 125 mg IVPUSH ONETIME ONE Stop: 02/12/18 01:06 Last Admin: 02/12/18 01:15 Dose: 125 mg Metoprolol Succinate (Toprol Xl) 50 mg PO DAILY [facility] Last Admin: 02/14/18 08:11 Dose: 50 mg Metoprolol Succinate (Toprol Xl) 75 mg PO DAILY [facility] Last Admin: 02/14/18 09:01 Dose: Not Given Metoprolol Succinate (Toprol Xl) 75 mg PO DAILY [facility] Metoprolol Succinate (Toprol Xl) 25 mg PO ONETIME ONE Stop: 02/14/18 09:01 Last Admin: 02/14/18 09:19 Dose: 25 mg Metoprolol Succinate (Toprol Xl) 50 mg PO DAILY [facility] Morphine Sulfate (Morphine) 2 mg IVPUSH ONETIME ONE Stop: 02/12/18 00:57 Last Admin: 02/12/18 01:16 Dose: 2 mg Pantoprazole Sodium (Protonix) 40 mg PO ACBREAKFAST [facility] Last Admin: 02/12/18 07:02 Dose: 40 mg Thiamine HCl (Vitamin B-1) 100 mg PO BEDTIME [facility] Warfarin Sodium (Coumadin) 5 mg PO DAILY [facility] Warfarin Sodium (Coumadin) 5 mg PO DAILY@1400 [facility] Last Admin: 02/14/18 14:18 Dose: 5 mg - Exam General: Reports: Alert, Oriented, Cooperative HEENT: Reports: Pupils Equal, Pupils Reactive, EOMI Neck: Reports: Supple, Trachea Midline, No JVD, No Thyromegaly Lungs: Reports: Clear to Auscultation, Normal Respiratory Effort Cardiovascular: Reports: Regular Rate, Regular Rhythm, No Murmurs GI/Abdominal Exam: Normal Bowel Sounds, Soft, Non-Tender, No Organomegaly, No Distention, No Abnormal Bruit, No Mass Back Exam: Reports: Normal Inspection Extremities: Normal Inspection Skin: Reports: Warm, Dry Neurological: Reports: No New Focal Deficit Psy/Mental Status: Reports: Alert, Normal Affect EKG INTERPRETATION EKG Date: 02/16/18 Rhythm: NSR
[2018-02-15] MEDS ORDERED: Metoprolol Succinate 50 MG Tab.ER PO SCH (09:00)
[2018-02-15] MEDS ORDERED: Metoprolol Succinate 100 MG Tab.ER PO SCH (09:00)
[2018-02-15] MEDS ORDERED: Magnesium Oxide 400 MG Tab PO SCH (09:00)
[2018-02-15] MEDS ORDERED: Metoprolol Succinate 25 MG Tab.ER PO SCH (09:00)
[2018-02-15] MEDS ORDERED: Lisinopril 5 MG Tab PO SCH (21:00)
[2018-02-15] MEDS ORDERED: Thiamine 100 MG Tab PO SCH (21:00)
== END 2018-02-15 11:17 | disposition home or self-care (01) | DRG 292 ==
LOC: MW.ED 00:53 → MW.MS 02:53
PROVIDERS: ADMIT Internal Medicine; ATTEND Internal Medicine
DX: I50.23 Acute on chronic systolic (congestive) heart failure (principal); I42.9 Cardiomyopathy, unspecified; I10 Essential (primary) hypertension; F41.8 Other specified anxiety disorders; R09.02 Hypoxemia; R60.1 Generalized edema; R07.9 Chest pain, unspecified; R74.8 Abnormal levels of other serum enzymes; F10.229 Alcohol dependence with intoxication, unspecified; Z87.891 Personal history of nicotine dependence; Z88.8 Allergy status to other drugs, medicaments and biological substances; Z79.899 Other long term (current) drug therapy
CPT/HCPCS: 36415; 71045; 71045-26; 80048; 80053; 80061; 81001; 82550; 82553; 83036; 83690; 83735; 83880; 84484; 85025; 85027; 85610; 93005; 94640; 96361; 96374; 96375; 99284; 99285-25; A9270-GY; C9113; G0480; J1644; J1650; J1940; J2060; J2270; J2405; J2930; J3475; J7040

== ENCOUNTER 2018-02-21 05:33 | Inpatient (IN) | payer MEDICAID ==
[2018-02-21] MEDS ORDERED: Sodium Chloride 0.9% 10 ML Syringe FLUSH PRN (05:45)
[2018-02-21] MEDS ORDERED: Albuterol/Ipratropium 3.0-0.5 MG/3 ML Neb Soln NEB ONE (05:46)
[2018-02-21 06:34] LABS: CHLORIDE,CL 99 mmol/L (98-107); SODIUM,NA 134 mmol/L (136-148)
[2018-02-21] MEDS ORDERED: Furosemide 40 MG/4 ML VIAL IVPUSH ONE (06:38)
[2018-02-21] MEDS ORDERED: Aspirin 81 MG Tab.Chew PO ONE (06:39)
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
[2018-02-21] MEDS ORDERED: Acetaminophen 325 MG Tab PO PRN (08:18)
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
[2018-02-21] MEDS: Ondansetron 4 MG/2 ML SDV IVPUSH PRN ×2 (09:10→21:03)
[2018-02-21] MEDS: Folic Acid 1 MG Tab PO SCH (09:24)
[2018-02-21] MEDS: Promethazine 25 MG/ML SDV IM PRN (10:55)
[2018-02-21] MEDS: Metoprolol Succinate 100 MG Tab.ER PO SCH (12:52)
[2018-02-21] MEDS: LORazepam 2 MG/ML SDV IVPUSH PRN ×2 (13:11→21:43)
[2018-02-21] MEDS: Furosemide 40 MG/4 ML VIAL IVPUSH SCH ×2 (13:12→21:03)
--- NOTE | 2018-02-21 13:27 | CR ---
EXAM DATE: 02/21/18 PATIENT'S AGE: 47 Patient: MONICA ALDRICH Facility: [place], [place] Site . Site : [id number] Study: XRay Chest [id number]/1/2018 9:22:17 AM Ordering Physician: Tyrone Jackson Final Report: INDICATION: Chest pain. Pleural effusion. TECHNIQUE: Chest 1 views COMPARISON: February 12, 2018. FINDINGS: Cardiovascular and mediastinum: Stable cardiomegaly. Normal pulmonary vasculature. Lungs and pleural spaces: Stable right pleural effusion with right basilar atelectasis. Stable elevation of the right diaphragm. Left lung and pleural space are clear. No pneumothorax. Bones and soft tissues: No significant findings. IMPRESSION: No change from the prior exam. Stable right pleural effusion and right basilar atelectasis. No new abnormality to explain chest pain. Dictated by Ry Wagner MD @ Feb 21 2018 9:48AM (Electronic Signature) Report Signed by Proxy. MARITA
[2018-02-21] MEDS ORDERED: Furosemide 40 MG/4 ML VIAL IVPUSH SCH (14:00)
[2018-02-21] MEDS: Potassium Chloride 20 MEQ Tab.ER PO SCH (16:38)
[2018-02-21] MEDS: Thiamine 100 MG Tab PO SCH (21:04)
[2018-02-22] MEDS: Furosemide 40 MG/4 ML VIAL IVPUSH SCH ×3 (05:55→21:23)
[2018-02-22 06:26] LABS: CHLORIDE,CL 105 mmol/L (98-107); SODIUM,NA 141 mmol/L (136-148)
[2018-02-22] MEDS ORDERED: Magnesium Sulfate/Water 2 GM in Premix Bag 1 BAG IV ONE (08:08)
[2018-02-22] MEDS: Aspirin 81 MG Tab.Chew PO SCH (09:31)
[2018-02-22] MEDS: Folic Acid 1 MG Tab PO SCH (09:31)
[2018-02-22] MEDS: Potassium Chloride 20 MEQ Tab.ER PO SCH ×2 (09:31→18:08)
[2018-02-22] MEDS: Metoprolol Succinate 100 MG Tab.ER PO SCH (09:36)
[2018-02-22] MEDS: Promethazine 25 MG/ML SDV IM PRN ×2 (09:42→19:13)
--- NOTE | 2018-02-22 12:05 | PCM.PN ---
- General Info Date of Service: 02/22/18 Admission Dx/Problem (Free Text): Admission Diagnosis/Problem Admission Diagnosis/Problem Dyspnea Subjective Update: Feel "like I was run over by a truck". Reports being hung over. No chest pain, dyspnea or palpitations. Shortness of breath is much better, nearly normal. Functional Status: Reports: Pain Controlled, Tolerating Diet, Ambulating, Urinating - Review of Systems General: Reports: Malaise. Denies: Fever, Weakness, Fatigue HEENT: Reports: No Symptoms. Denies: Headaches, Sore Throat, Visual Changes Pulmonary: Reports: Shortness of Breath (improved). Denies: Cough, Sputum Cardiovascular: Reports: Edema (to abdomen). Denies: Chest Pain, Palpitations Gastrointestinal: Reports: No Symptoms. Denies: Abdominal Pain, Nausea, Vomiting Genitourinary: Reports: No Symptoms. Denies: Dysuria, Frequency, Burning Musculoskeletal: Reports: No Symptoms Skin: Reports: No Symptoms Neurological: Reports: Tremors (alcohol withdrawl.) Psychiatric: Reports: No Symptoms - Patient Data Vitals - Most Recent: Last Vital Signs Temp 98.4 F 02/22/18 08:00 Pulse 89 02/22/18 09:36 Resp 18 02/22/18 08:00 BP 122/81 02/22/18 09:36 Pulse Ox 92 L 02/22/18 08:00 Weight - Most Recent: 105 kg I&O - Last 24 Hours: Intake & Output 02/21/18 02/22/18 02/22/18 22:59 06:59 14:59 Intake Total 100 350 Output Total 1545 1500 Balance -1445 -1150 Lab Results Last 24 Hours: Laboratory Results - last 24 hr 02/21/18 02/21/18 02/22/18 Range/Units 12:33 18:28 05:06 WBC 6.24 (4.0-11.0) K/uL RBC 4.30 L (4.50-5.90) M/uL Hgb 11.9 L (13.0-17.0) g/dL Hct 36.8 L (38.0-50.0) % MCV 85.6 (80.0-98.0) fL MCH 27.7 (27.0-32.0) pg MCHC 32.3 (31.0-37.0) g/dL RDW Std Deviation 56.6 (28.0-62.0) fl RDW Coeff of Pancho 18 H (11.0-15.0) % Plt Count 271 (150-400) K/uL MPV 8.50 (7.40-12.00) fL Neut % (Auto) 52.0 (48.0-80.0) % Lymph % (Auto) 32.7 (16.0-40.0) % [place] % (Auto) 14.6 (0.0-15.0) % Eos % (Auto) 0.2 (0.0-7.0) % Baso % (Auto) 0.5 (0.0-1.5) % Neut # (Auto) 3.3 (1.4-5.7) K/uL Lymph # (Auto) 2.0 (0.6-2.4) K/uL [place] # (Auto) 0.9 H (0.0-0.8) K/uL Eos # (Auto) 0.0 (0.0-0.7) K/uL Baso # (Auto) 0.0 (0.0-0.1) K/uL Nucleated RBC % 0.0 /100WBC Nucleated RBCs # 0 K/uL Sodium (136-148) mmol/L Potassium (3.5-5.1) mmol/L Chloride (98-107) mmol/L Carbon Dioxide (21.0-32.0) mmol/L BUN (7.0-18.0) mg/dL Creatinine (0.8-1.3) mg/dL Est Cr Clr Drug Dosing mL/min Estimated GFR (MDRD) ml/min Glucose (74-106) mg/dL Calcium (8.5-10.1) mg/dL Magnesium (1.5-2.0) mg/dL Troponin I 0.217 H* 0.217 H* (0.000-0.056) ng/mL 02/22/18 Range/Units 05:06 WBC (4.0-11.0) K/uL RBC (4.50-5.90) M/uL Hgb (13.0-17.0) g/dL Hct (38.0-50.0) % MCV (80.0-98.0) fL MCH (27.0-32.0) pg MCHC (31.0-37.0) g/dL RDW Std Deviation (28.0-62.0) fl RDW Coeff of Pancho (11.0-15.0) % Plt Count (150-400) K/uL MPV (7.40-12.00) fL Neut % (Auto) (48.0-80.0) % Lymph % (Auto) (16.0-40.0) % [place] % (Auto) (0.0-15.0) % Eos % (Auto) (0.0-7.0) % Baso % (Auto) (0.0-1.5) % Neut # (Auto) (1.4-5.7) K/uL Lymph # (Auto) (0.6-2.4) K/uL [place] # (Auto) (0.0-0.8) K/uL Eos # (Auto) (0.0-0.7) K/uL Baso # (Auto) (0.0-0.1) K/uL Nucleated RBC % /100WBC Nucleated RBCs # K/uL Sodium 141 (136-148) mmol/L Potassium 3.9 (3.5-5.1) mmol/L Chloride 105 (98-107) mmol/L Carbon Dioxide 24.5 (21.0-32.0) mmol/L BUN 16 (7.0-18.0) mg/dL Creatinine 1.2 (0.8-1.3) mg/dL Est Cr Clr Drug Dosing 77.74 mL/min Estimated GFR (MDRD) > 60.0 ml/min Glucose 79 (74-106) mg/dL Calcium 7.9 L (8.5-10.1) mg/dL Magnesium 1.6 (1.5-2.0) mg/dL Troponin I (0.000-0.056) ng/mL Med Orders - Current: Current Medications Acetaminophen (Tylenol) 650 mg PO Q4H PRN PRN Reason: Pain (mild 1-3) Last Admin: 02/22/18 09:42 Dose: 650 mg Aspirin (Aspirin) 81 mg PO DAILY [facility] Last Admin: 02/22/18 09:31 Dose: 81 mg Folic Acid (Folic Acid) 1 mg PO DAILY [facility] Last Admin: 02/22/18 09:31 Dose: 1 mg Furosemide (Lasix) 40 mg IVPUSH TID [facility] Last Admin: 02/22/18 05:55 Dose: 40 mg Lorazepam (Ativan) 0 mg IVPUSH Q4H PRN; Protocol PRN Reason: CIWAA Last Admin: 02/21/18 21:43 Dose: 2 mg Metoprolol Succinate (Toprol Xl) 100 mg PO DAILY [facility] Last Admin: 02/22/18 09:36 Dose: 100 mg Ondansetron HCl (Zofran) 4 mg IVPUSH Q4H PRN PRN Reason: Nausea Last Admin: 02/21/18 21:03 Dose: 4 mg Potassium Chloride (Klor-Con M20) 40 meq PO BIDMEALS [facility] Last Admin: 02/22/18 09:31 Dose: 40 meq Promethazine HCl (Phenergan) 12.5 mg IM Q6H PRN PRN Reason: Nausea Last Admin: 02/22/18 09:42 Dose: 12.5 mg Sodium Chloride (Saline Flush) 10 ml FLUSH ASDIRECTED PRN PRN Reason: Keep Vein Open Last Admin: 02/21/18 05:54 Dose: 10 ml Thiamine HCl (Vitamin B-1) 100 mg PO BEDTIME [facility] Last Admin: 02/21/18 21:04 Dose: 100 mg Discontinued Medications Albuterol/Ipratropium (Duoneb 3.0-0.5 Mg/3 Ml) 3 ml NEB ONETIME ONE Stop: 02/21/18 05:47 Last Admin: 02/21/18 05:54 Dose: 3 ml Aspirin (Aspirin) 324 mg PO ONETIME ONE Stop: 02/21/18 06:40 Last Admin: 02/21/18 06:45 Dose: 324 mg Furosemide (Lasix) 40 mg IVPUSH NOW ONE Stop: 02/21/18 06:39 Last Admin: 02/21/18 06:45 Dose: 40 mg Furosemide (Lasix) 40 mg IVPUSH BIDDIURETIC [facility] Magnesium Sulfate 2 gm/ Premix 50 mls @ 50 mls/hr IV ONETIME ONE Stop: 02/22/18 09:07 Last Admin: 02/22/18 09:31 Dose: 50 mls/hr - Exam General: Alert, Oriented, Cooperative, No Acute Distress Neck: Supple Lungs: Clear to Auscultation, Normal Respiratory Effort, Crackles (few crackles to R lower lung base.) Cardiovascular: Regular Rate, Regular Rhythm GI/Abdominal Exam: Normal Bowel Sounds, Soft, Hepatomegaly, Other (edema noted to abdomen, improved today Less distended today ) Extremities: Normal Inspection, Normal Range of Motion, Non-Tender, No Pedal Edema, Normal Capillary Refill Neurological: No New Focal Deficit Psy/Mental Status: Alert, Normal Affect, Normal Mood - Problem List & Annotations (1) Acute exacerbation of congestive heart failure SNOMED Code(s): 45324904 Code(s): I50.9 - HEART FAILURE, UNSPECIFIED Status: Acute Current Visit: No Qualifiers: Heart failure type: systolic Qualified Code(s): I50.23 - Acute on chronic systolic (congestive) heart failure (2) Pleural effusion SNOMED Code(s): 25023889 Code(s): J90 - PLEURAL EFFUSION, NOT ELSEWHERE CLASSIFIED Status: Acute Priority: High Current Visit: No (3) Anasarca SNOMED Code(s): 077281458, 474124534 Code(s): R60.1 - GENERALIZED EDEMA Status: Acute Priority: High Current Visit: No (4) Alcohol intoxication SNOMED Code(s): 75002821 Code(s): F10.929 - ALCOHOL USE, UNSPECIFIED WITH INTOXICATION, UNSPECIFIED Status: Acute Current Visit: No Qualifiers: Complication of substance-induced condition: uncomplicated Qualified Code(s ): F10.920 - Alcohol use, unspecified with intoxication, uncomplicated (5) Alcohol abuse SNOMED Code(s): 93981448 Code(s): F10.10 - ALCOHOL ABUSE, UNCOMPLICATED Status: Chronic Current Visit: No (6) Elevated troponin SNOMED Code(s): 830929823, 256436614, 184367371 Code(s): R74.8 - ABNORMAL LEVELS OF OTHER SERUM ENZYMES Status: Acute Current Visit: No (7) Hepatic steatosis SNOMED Code(s): 784945090 Code(s): K76.0 - FATTY (CHANGE OF) LIVER, NOT ELSEWHERE CLASSIFIED Status: Chronic Current Visit: No (8) Hypertension SNOMED Code(s): 91214708 Code(s): I10 - ESSENTIAL (PRIMARY) HYPERTENSION Status: Chronic Current Visit: No Qualifiers: Hypertension type: essential hypertension Qualified Code(s): I10 - Essential (primary) hypertension (9) Non-compliance with treatment SNOMED Code(s): 9646722 Code(s): Z91.19 - PATIENT'S NONCOMPLIANCE W OTH MEDICAL TREATMENT AND REGIMEN Status: Chronic Current Visit: Yes - Problem List Review Problem List Initiated/Reviewed/Updated: Yes - My Orders Last 24 Hours: My Active Orders 02/21/18 11:47 Height and Weight [RC] DAILY Intake and Output Strict [RC] Q12H 02/21/18 11:52 Patient Status [ADT] Stat 02/21/18 12:00 Metoprolol Succinate [Toprol XL] 100 mg PO DAILY 02/21/18 12:21 SCD [Sequential Compression Device] [OM.PC] Routine 02/21/18 14:00 Furosemide [Lasix] 40 mg IVPUSH TID 02/21/18 17:00 Potassium Chloride [Klor-Con M20] 40 meq PO BIDMEALS 02/21/18 21:00 Thiamine [Vitamin B-1] 100 mg PO BEDTIME 02/22/18 Thoracentesis W/ US Guide [US] Routine 02/22/18 09:00 Aspirin 81 mg PO DAILY 02/23/18 05:11 BASIC METABOLIC PANEL,BMP [CHEM] AM CBC WITH AUTO DIFF [HEME] AM MAGNESIUM [CHEM] AM - Plan Plan:: This 47 year old male admitted for acute on chronic systolic heart failure and dyspnea 1. Acute on chronic systolic CHF exacerbation: Improving.CXR reveals stable R sided pleural effusion. ECHO from November 2017 revealed LVEF 15-20% global severe hypokinesis and mild MR, moderate TR and severe biatrial dilation. COntinue diuresis with Lasix 40 mg IV TID. Thoracentesis today for dyspnea and R sided pleural effusion. Strict I/O, daily weights. 1.5 L Fluid restriction Low Na/heart healthy diet. No chest pain today. Troponins elevated, but no chest pain and likely secondary to demand ischemia from CHF exacerbation. 2. HTN: Continue Metoprolol XL 100 mg daily. start Lisinopril 20 mg 3. Alcohol abuse: CIWAA score elevated to 18 and 12, better this am after Ativan. Continue Folic acid, thiamine. CIWAA protocol with Ativan PRN. VTE prophylaxis: SCDs only due to acute alcohol intoxication and vomiting. Will monitor. Dispo: possible dc in am.
--- NOTE | 2018-02-22 14:53 | US ---
EXAMINATION: Ultrasound guided right thoracentesis. HISTORY: Right pleural effusion. Technique/findings: The procedure, benefits and risks were discussed with the patient. Following wr itten informed consent was obtained from the patient, under ultrasound guidance and utilizing 1% lido wilma as local anesthesia the right pleural effusion was accessed using a 5 Nepali one-step needle. Following access the catheter was placed into the effusion, 1100 cc of pleural effusion was drained. US images demonstrate residual small pleural effusion. The patient tolerated the procedure well. IMPRESSION: Successful ultrasound guided right thoracentesis. Fluid was straw-colored.
[2018-02-22] MEDS: Thiamine 100 MG Tab PO SCH (21:21)
[2018-02-22] MEDS: Ondansetron 4 MG/2 ML SDV IVPUSH PRN (22:58)
[2018-02-23] MEDS: Furosemide 40 MG/4 ML VIAL IVPUSH SCH (05:33)
[2018-02-23] MEDS: Ondansetron 4 MG/2 ML SDV IVPUSH PRN (05:38)
[2018-02-23] MEDS: Aspirin 81 MG Tab.Chew PO SCH (08:28)
[2018-02-23] MEDS: Potassium Chloride 20 MEQ Tab.ER PO SCH (08:28)
[2018-02-23] MEDS: Folic Acid 1 MG Tab PO SCH (08:28)
[2018-02-23] MEDS: Metoprolol Succinate 100 MG Tab.ER PO SCH (08:29)
--- NOTE | 2018-02-23 08:38 | PCM.DCSUM1 ---
Discharge Summary - Hospital Course Brief History: This 47 year old male with pmh of alcohol and tobacco abuse, systolic CHF, and HTN presented to the ED 02/21/18 morning, intoxicated, complaining of shortness of breath and chest pain. He was previously admitted twice in the last three weeks for similar symptoms was admitted and diuresed then discharged with no compliance in treatment plan. 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 He reports he is continuing to drink alcohol for emotional pain, and drank nearly a case of beer over the last 24 hours. He reports the chest pain is mainly when he coughs or when he is dry heaving and located to his R chest, sharp in nature. He denies black or bloody BMs, or hematemesis. He denies abdominal pain. reports some nausea and dry heaving this morning, feeling "hung over". In the ED labwork WNL. CXR reveals stable R sided pleural effusion. Troponin 0.215, which is the lowest it has been. Likely elevated due to ischemic demand for acute on chronic heart failure. He was treated with Lasix 40 mg IV ASA and Duonebs. He will be admitted inpatient due to the need for thoracentesis and IV diuresis. - Discharge Data Discharge Date: 02/23/18 Discharge Disposition: Home, Self-Care 01 Condition: Good - Discharge Diagnosis/Problem(s) (1) Acute exacerbation of congestive heart failure SNOMED Code(s): 82729374 ICD Code: I50.9 - HEART FAILURE, UNSPECIFIED Status: Acute Current Visit : No Qualifiers: Heart failure type: systolic Qualified Code(s): I50.23 - Acute on chronic systolic (congestive) heart failure (2) Pleural effusion SNOMED Code(s): 89491275 ICD Code: J90 - PLEURAL EFFUSION, NOT ELSEWHERE CLASSIFIED Status: Acute Priority: High Current Visit: No (3) Anasarca SNOMED Code(s): 450351076, 385643203 ICD Code: R60.1 - GENERALIZED EDEMA Status: Acute Priority: High Current Visit: No (4) Alcohol intoxication SNOMED Code(s): 86313770 ICD Code: F10.929 - ALCOHOL USE, UNSPECIFIED WITH INTOXICATION, UNSPECIFIED Status: Acute Current Visit: No Qualifiers: Complication of substance-induced condition: uncomplicated Qualified Code(s ): F10.920 - Alcohol use, unspecified with intoxication, uncomplicated (5) Alcohol abuse SNOMED Code(s): 01807926 ICD Code: F10.10 - ALCOHOL ABUSE, UNCOMPLICATED Status: Chronic Current Visit: No (6) Elevated troponin SNOMED Code(s): 940398884, 686939888, 973434772 ICD Code: R74.8 - ABNORMAL LEVELS OF OTHER SERUM ENZYMES Status: Acute Current Visit: No (7) Hepatic steatosis SNOMED Code(s): 825765560 ICD Code: K76.0 - FATTY (CHANGE OF) LIVER, NOT ELSEWHERE CLASSIFIED Status : Chronic Current Visit: No (8) Hypertension SNOMED Code(s): 51633468 ICD Code: I10 - ESSENTIAL (PRIMARY) HYPERTENSION Status: Chronic Current Visit: No Qualifiers: Hypertension type: essential hypertension Qualified Code(s): I10 - Essential (primary) hypertension (9) Non-compliance with treatment SNOMED Code(s): 0485557 ICD Code: Z91.19 - PATIENT'S NONCOMPLIANCE W OTH MEDICAL TREATMENT AND REGIMEN Status: Chronic Current Visit: Yes - Patient Instructions Diet: Heart Healthy Diet, Low Sodium, Fluid Restriction (2 L fluid restriction) Activity: No Strenuous Activities, Rest and Relax Today Showering/Bathing: May Shower Notify Provider of: Fever, Increased Pain, Swelling and Redness, Drainage, Nausea and/or Vomiting Other/Special Instructions: Abstain from alcohol. Limit fluid intake to 2 liters daily. Weigh yourself daily and log weight in a journal. Bring this to every appointment. Come to ED or contact primary care provider if you start experiencing shortness of breath, chest pain, waking up short of breath or gaining 3-5 pounds over 2-3 days. - Discharge Plan Prescriptions/Med Rec: Metoprolol Succinate [Toprol XL 100mg] 100 mg PO DAILY #30 tab.er Home Medications: Home Meds Folic Acid 1 mg PO DAILY 30 Days #30 tab 12/09/17 [Rx] Citalopram [Citalopram HBr] 20 mg PO DAILY 02/06/18 [History] Cyanocobalamin/FA/Pyridoxine [Folic Acid-Vit B6-Vit B12] 1 each PO DAILY #90 tablet 02/09/18 [Rx] Furosemide 40 mg PO BID #60 tablet 02/09/18 [Rx] Lisinopril [Prinivil] 20 mg PO BEDTIME 90 Days #90 tablet 02/15/18 [Rx] Magnesium Oxide 400 mg PO DAILY 90 Days #90 tablet 02/15/18 [Rx] Potassium Chloride [Klor-Con M20] 20 meq PO BID 90 Days #180 tab.er 02/15/18 [Rx ] Thiamine [Vitamin B-1] 100 mg PO BEDTIME 90 Days #90 tablet 02/15/18 [Rx] Aspirin 81 mg PO DAILY #0 tab.chew 02/23/18 [Rx] Metoprolol Succinate [Toprol XL 100mg] 100 mg PO DAILY #30 tab.er 02/23/18 [Rx] Patient Handouts: Metoprolol extended-release tablets, Heart Failure, Easy-to- Read Referrals: Jl Silver MD [Physician] - 03/01/18 10:00 am Romeo Persaud MD [Resident] - 03/03/18 3:30 pm - Discharge Summary/Plan Comment DC Time >30 min.: No Discharge Summary/Plan Comment: Discharge Diagnoses: Acute on chronic systolic CHF, EF 15% Alcohol abuse Alcohol intoxication, resolved R sided pleural effusion Anasarca Elevated troponin HTN Cariomyopathy, likely secondary to alcohol abuse Non-compliance with treatment Hepatic steatosis Jesse was admitted, noted to be intoxicated with alcohol level of 234. He admits to drink large amount of alcohol the day and night prior to admission. He reports the shortness of breath had been slowly worsening. 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 I called [facility] and he was picked up Metoprolol XL 50 mg February 09 then on February 15 picked up 90 day supply of Lasix 40 mg BID and Potassium. Lisinopril was never picked up. I had told pharmacy to get this ready for him to picking crew supervisor today along with increased dose of Metoprolol XL 100mg. Jesse was diuresed aggressively during admission with Lasix 40 mg IV TID along with thoracentesis to R sided persistent pleural effusion secondary to continued dyspnea. He reports feeling alot better after thoracentesis, which removed 1100 ml of straw colored fluid. He has lost 7 kg since admission and diuresis. He was educated on fluid restriction at home and sobriety. He voices his nephew is going to remove all the alcohol from the house and he is hoping to stop. Resources for AA and celebrate Recovery will be given to patient. He reports he has his counselors number and will contact her. He voices he really needs to get back to [place] where his family is and namely his ex- who has kept him on track in the past. He was encouraged to monitor salt intake and monitor fluid intake. He was encouraged to picking crew supervisor Lisinopril a the pharmacy since this is a josue medication he needs in CHF as well as continue his Metoprolol and Lasix. He is to return to ED or clinic if concerns should arise. he continues to need ischemic work-up and appointments have been made with Dr Silver and PCP. He plans on leaving for [place] after March 03. - General Info Date of Service: 02/23/18 Admission Dx/Problem (Free Text: Admission Diagnosis/Problem Admission Diagnosis/Problem Dyspnea Subjective Update: feeling much better today, is breathing better than he has in a long time. No chest pain or dyspnea. Eager to go home. Functional Status: Reports: Pain Controlled, Tolerating Diet, Ambulating, Urinating - Review of Systems General: Reports: No Symptoms. Denies: Fever, Weakness HEENT: Reports: No Symptoms. Denies: Headaches, Sore Throat Pulmonary: Reports: No Symptoms. Denies: Shortness of Breath Cardiovascular: Reports: Edema (some continues to lower abdomen). Denies: Chest Pain, Palpitations Gastrointestinal: Reports: No Symptoms Genitourinary: Reports: No Symptoms Musculoskeletal: Reports: No Symptoms Skin: Reports: No Symptoms Neurological: Reports: No Symptoms Psychiatric: Reports: No Symptoms - Patient Data Vitals - Most Recent: Last Vital Signs Temp 99.2 F 02/23/18 08:00 Pulse 88 02/23/18 08:29 Resp 16 02/23/18 08:00 BP 108/71 02/23/18 08:29 Pulse Ox 92 L 02/23/18 08:00 Weight - Most Recent: 101 kg I&O - Last 24 hours: Intake & Output 02/22/18 02/23/18 02/23/18 22:59 06:59 14:59 Intake Total 650 750 Output Total 2400 1625 Balance -1750 -875 Lab Results - Last 24 hrs: Laboratory Results - last 24 hr 02/23/18 02/23/18 Range/Units 05:00 05:00 WBC 5.61 (4.0-11.0) K/uL RBC 4.29 L (4.50-5.90) M/uL Hgb 11.9 L (13.0-17.0) g/dL Hct 37.5 L (38.0-50.0) % MCV 87.4 (80.0-98.0) fL MCH 27.7 (27.0-32.0) pg MCHC 31.7 (31.0-37.0) g/dL RDW Std Deviation 58.2 (28.0-62.0) fl RDW Coeff of Pancho 18 H (11.0-15.0) % Plt Count 234 (150-400) K/uL MPV 9.00 (7.40-12.00) fL Neut % (Auto) 49.2 (48.0-80.0) % Lymph % (Auto) 37.1 (16.0-40.0) % [place] % (Auto) 12.8 (0.0-15.0) % Eos % (Auto) 0.5 (0.0-7.0) % Baso % (Auto) 0.4 (0.0-1.5) % Neut # (Auto) 2.8 (1.4-5.7) K/uL Lymph # (Auto) 2.1 (0.6-2.4) K/uL [place] # (Auto) 0.7 (0.0-0.8) K/uL Eos # (Auto) 0.0 (0.0-0.7) K/uL Baso # (Auto) 0.0 (0.0-0.1) K/uL Nucleated RBC % 0.0 /100WBC Nucleated RBCs # 0 K/uL Sodium 143 (136-148) mmol/L Potassium 4.7 (3.5-5.1) mmol/L Chloride 107 (98-107) mmol/L Carbon Dioxide 31.6 (21.0-32.0) mmol/L BUN 18 (7.0-18.0) mg/dL Creatinine 1.4 H (0.8-1.3) mg/dL Est Cr Clr Drug Dosing 66.63 mL/min Estimated GFR (MDRD) 54.8 ml/min Glucose 159 H (74-106) mg/dL Calcium 8.1 L (8.5-10.1) mg/dL Magnesium 1.9 (1.5-2.0) mg/dL Med Orders - Current: Current Medications Acetaminophen (Tylenol) 650 mg PO Q4H PRN PRN Reason: Pain (mild 1-3) Last Admin: 02/22/18 09:42 Dose: 650 mg Aspirin (Aspirin) 81 mg PO DAILY [facility] Last Admin: 02/23/18 08:28 Dose: 81 mg Folic Acid (Folic Acid) 1 mg PO DAILY [facility] Last Admin: 02/23/18 08:28 Dose: 1 mg Furosemide (Lasix) 40 mg IVPUSH TID [facility] Last Admin: 02/23/18 05:33 Dose: 40 mg Lorazepam (Ativan) 0 mg IVPUSH Q4H PRN; Protocol PRN Reason: CIWAA Last Admin: 02/21/18 21:43 Dose: 2 mg Metoprolol Succinate (Toprol Xl) 100 mg PO DAILY [facility] Last Admin: 02/23/18 08:29 Dose: 100 mg Ondansetron HCl (Zofran) 4 mg IVPUSH Q4H PRN PRN Reason: Nausea Last Admin: 02/23/18 05:38 Dose: 4 mg Potassium Chloride (Klor-Con M20) 40 meq PO BIDMEALS [facility] Last Admin: 02/23/18 08:28 Dose: 40 meq Promethazine HCl (Phenergan) 12.5 mg IM Q6H PRN PRN Reason: Nausea Last Admin: 02/22/18 19:13 Dose: 12.5 mg Sodium Chloride (Saline Flush) 10 ml FLUSH ASDIRECTED PRN PRN Reason: Keep Vein Open Last Admin: 02/21/18 05:54 Dose: 10 ml Thiamine HCl (Vitamin B-1) 100 mg PO BEDTIME [facility] Last Admin: 02/22/18 21:21 Dose: 100 mg Discontinued Medications Albuterol/Ipratropium (Duoneb 3.0-0.5 Mg/3 Ml) 3 ml NEB ONETIME ONE Stop: 02/21/18 05:47 Last Admin: 02/21/18 05:54 Dose: 3 ml Aspirin (Aspirin) 324 mg PO ONETIME ONE Stop: 02/21/18 06:40 Last Admin: 02/21/18 06:45 Dose: 324 mg Furosemide (Lasix) 40 mg IVPUSH NOW ONE Stop: 02/21/18 06:39 Last Admin: 02/21/18 06:45 Dose: 40 mg Furosemide (Lasix) 40 mg IVPUSH BIDDIURETIC [facility] Magnesium Sulfate 2 gm/ Premix 50 mls @ 50 mls/hr IV ONETIME ONE Stop: 02/22/18 09:07 Last Admin: 02/22/18 09:31 Dose: 50 mls/hr - Exam General: Reports: Alert, Oriented, Cooperative, No Acute Distress Neck: Reports: Supple Lungs: Reports: Clear to Auscultation, Normal Respiratory Effort Cardiovascular: Reports: Regular Rate, Regular Rhythm GI/Abdominal Exam: Normal Bowel Sounds, Soft, Non-Tender, No Organomegaly, No Distention, No Abnormal Bruit, No Mass, Pelvis Stable, Other (+1 pitting edema to lower abdomen, much improved. ) Back Exam: Reports: Normal Inspection, Full Range of Motion Extremities: Normal Inspection, Normal Range of Motion, Non-Tender, No Pedal Edema, Normal Capillary Refill Neurological: Reports: No New Focal Deficit Psy/Mental Status: Reports: Alert, Normal Affect, Normal Mood
== END 2018-02-23 12:30 | disposition home or self-care (01) | DRG 292 ==
LOC: MW.ED 05:33 → MW.MS 07:02 → OBSVTOIN 11:52 → MW.MS 15:30
PROVIDERS: ADMIT Internal Medicine; ATTEND Internal Medicine
PROC: 0W993ZZ Drainage of Right Pleural Cavity, Percutaneous Approach (ICD-10-PCS; principal; 2018-02-22)
DX: I50.23 Acute on chronic systolic (congestive) heart failure (principal); J90 Pleural effusion, not elsewhere classified; I42.9 Cardiomyopathy, unspecified; R60.1 Generalized edema; F10.920 Alcohol use, unspecified with intoxication, uncomplicated; R74.8 Abnormal levels of other serum enzymes; K76.0 Fatty (change of) liver, not elsewhere classified; I10 Essential (primary) hypertension; R07.9 Chest pain, unspecified; Z91.19 Patient's noncompliance with other medical treatment and regimen
CPT/HCPCS: 32555; 36415; 71045; 71045-26; 80048; 80053; 83735; 83880; 84484; 85025; 85610; 93005; 94640; 96374; 99285-25; A9270-GY; C1729; G0480; J1940; J2060; J2405; J2550; J3475